=== PATIENT | female | born 1965 | race Caucasian/White ===

== ENCOUNTER 2018-01-09 14:25 | Emergency (ER) | payer BC ==
--- OUTSIDE RECORDS SUMMARY | 2018-01-09 14:27 | XMS REPORT | Clinical Summary ---
:1965 Author Organization [facility] Address [address] [place] [address] Phone Care Team Providers Name Role Phone Unavailable Primary Care Provider Unavailable Allergies No Known Allergies Current Medications Prescription Sig. Disp. Refills Start Date End Date Status venlafaxine (EFFEXOR) 50 Take 50 mg by mouth Active MG tablet 2 (two) times daily. atenolol (TENORMIN) 25 Take 25 mg by mouth Active MG tablet daily. traZODone (DESYREL) 50 Take 50 mg by mouth Active MG tablet nightly. topiramate (TOPAMAX) 50 Take 50 mg by mouth Active MG tablet 2 (two) times daily. omeprazole (PRILOSEC) 10 Take 10 mg by mouth Active MG capsule daily. eletriptan (RELPAX) 20 Take 10 mg by mouth Active MG tablet once as needed for Headaches Do NOT exceed eighty (80) mg in 24 hours. . Active Problems Not on file Encounters Date Type Specialty Care Team [facility] Richard Delgadillo 07/23/2017 Outside Orders [facility], Breast microcalcifications Scheduling Richard Delgadillo (Primary Dx) after 01/08/2017 Social History Tobacco Use Types Packs/Day Years Used Date Never Assessed Smokeless Tobacco: Never Used Alcohol Use Drinks/Week oz/Week Comments Yes occasional Sex Assigned at Date Recorded Not on file Last Filed Vital Signs Vital Sign Reading Time Taken Blood Pressure 128/80 07/26/2017 11:12 AM CDT Pulse 58 07/26/2017 11:12 AM CDT Temperature 36.7 C (98 F) 07/26/2017 9:41 AM CDT Respiratory Rate 19 07/26/2017 11:12 AM CDT Oxygen Saturation 98% 07/26/2017 11:12 AM CDT Inhaled Oxygen Concentration - - Weight 102.1 kg (225 lb) 07/26/2017 9:41 AM CDT Height 170.2 cm (5' 7") 07/26/2017 9:41 AM CDT Body Mass Index 35.24 07/26/2017 9:41 AM CDT Plan of Treatment Not on file Results Tissue Exam (07/26/2017 1:43 PM) Component Value Ref Range Case Report Surgical Pathology Report Case: [id number] Authorizing Provider:Orlando Jansen MDCollected: 07/26/2017 1348 [facility] 07/26/2017 1343 Pathologist: Shirley Ortiz MD Specimen:Breast, Right, RIGHT UPPER OUTER BREAST CALCIFICATIONS DIAGNOSIS A. 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 CPT Code(s) A. 46324 x 1 CLINICAL HISTORY Questionable sclerosing lesion SPECIMEN SOURCE Right upper outer breast calcification. GROSS DESCRIPTION Specimen is received in formalin-filled container labeled with the patient's information and labeled "right upper outer breast calcification" and consists of four yellow-white breast core biopsies ranging in length from 0.9 to 2 cm. Specimen is entirely submitted A1. Ink code: Black. Specimen is entirely submitted A1. CG/bc MICROSCOPIC DESCRIPTION A. Performed. Specimen Performing Laboratory Tissue - Breast, Right [address] [address] MM Breast Specimen Radiograph Right (07/26/2017 11:21 AM) Specimen Performing Laboratory GE [facility] Narrative #[id number] - MM, MAMMO, SPECIMEN, RADIOGRAPH, RIGHT SPECIMEN RIGHT BREAST: 07/26/2017 Four stereotactic guided biopsy specimens were imaged for the area of calcifications located in the right breast at 10 o'clock middle depth. IMPRESSION: SPECIMEN The imaged specimens includes the calcifications. Orlando Jansen M.D. pth/:07/26/2017 13:06:46 Bankruptcy Paralegal: Anastacialydia SHETTY (R)), [facility] [id number] Procedure Note Interface, External Ris In - 07/26/2017 3:54 PM CDT #[id number] - MM, MAMMO, SPECIMEN, RADIOGRAPH, RIGHT SPECIMEN RIGHT BREAST: 07/26/2017 Four stereotactic guided biopsy specimens were imaged for the area of calcifications located in the right breast at 10 o'clock middle depth. IMPRESSION: SPECIMEN The imaged specimens includes the calcifications. Orlando Jansen M.D. pth/:07/26/2017 13:06:46 Bankruptcy Paralegal: Anastacia SHETTY (R)), [facility] [id number] , DIGITAL, UNILATERAL, CONFER JACKSON, MAMMO, RIGHT (07/26/2017 11:20 AM) Specimen Performing Laboratory GE [facility] Narrative #[id number] - MM, DIGITAL, UNILATERAL, CONFER JACKSON, MAMMO, RIGHT INCLUDING CAD UNILATERAL RIGHT DIGITAL PROBLEM SOLVING MAMMOGRAM WITH CAD POST-PROCEDURE IMAGING FOR MARKER PLACEMENT: 07/26/2017 The tissue of the right breast is heterogeneously dense. This may lower the sensitivity of mammography. Current study was also evaluated with a Computer Aided Detection (CAD) system. The post procedure mammogram was performed on a separate mammography unit. A clip is placed at the biopsy site. Post procedure digital mammographic imaging demonstrates the clip 2cm lateral from the geometric center of the targeted area. IMPRESSION: POST PROCEDURE MAMMOGRAM FOR MARKER PLACEMENT Await pathology results. Orlando Jansen M.D. pth/:07/26/2017 13:06:15 Bankruptcy Paralegal: Anastacia SHETTY (R)), [facility] Mammogram BI-RADS: Post-procedure mammogram for marker placement [id number] Procedure Note Interface, External Ris In - 07/26/2017 3:54 PM CDT #[id number] - MM, DIGITAL, UNILATERAL, CONFER JACKSON, MAMMO, RIGHT INCLUDING CAD UNILATERAL RIGHT DIGITAL PROBLEM SOLVING MAMMOGRAM WITH CAD POST-PROCEDURE IMAGING FOR MARKER PLACEMENT: 07/26/2017 The tissue of the right breast is heterogeneously dense. This may lower the sensitivity of mammography. Current study was also evaluated with a Computer Aided Detection (CAD) system. The post procedure mammogram was performed on a separate mammography unit. A clip is placed at the biopsy site. Post procedure digital mammographic imaging demonstrates the clip 2cm lateral from the geometric center of the targeted area. IMPRESSION: POST PROCEDURE MAMMOGRAM FOR MARKER PLACEMENT Await pathology results. Orlando Jansen M.D. pth/:07/26/2017 13:06:15 Bankruptcy Paralegal: Anastacia Shoemaker RT(R)(M), [facility] Mammogram BI-RADS: Post-procedure mammogram for marker placement [id number] Stereotactic breast biopsy right (07/26/2017 11:19 AM) Specimen Performing Laboratory GE RIS Narrative Addendum Begins AMENDMENT: 07/29/2017 Orlando Jansen M.D. Pathology results are now available and demonstrate fibroadenoma with calcifications. This is concordant with the imaging findings. Addendum Ends #[id number] - MM, STEREOTACTIC BIOPSY, BREAST, RIGHT STEREOTACTIC GUIDED BIOPSY RIGHT BREAST WITH MARKING DEVICE INSERTED AND POST DIGITAL MAMMOGRAPHIC IMAGIN07/26/2017 PATIENT CONSENT: The procedure, risks, benefits and alternatives were discussed with the patient. Informed consent was obtained. A stereotactic guided biopsy was performed for the area of calcifications located in the right breast at 10 o'clock middle depth.The skin was prepped in the usual manner.Local anesthetic was administered to the access site.A skin josie was made in the breast.The abnormality was approached from the lateral aspect using a prone table.A 9 gauge biopsy needle was placed adjacent to the abnormality under computer guidance and confirmatory stereotactic mammography images were obtained to document needle placement.Once the needle was documented to be in the correct location, four specimens were obtained using Suros EVIVA device.A clip was inserted into the biopsy cavity.Post procedure digital mammographic imaging demonstrates the clip 2cm lateral from the geometric center of the targeted area.The specimens were sent to the laboratory for pathological analysis. IMPRESSION: STEREOTACTIC GUIDED BIOPSY Stereotactic guided biopsy of the area of calcifications in the right breast at 10 o'clock middle depth was successful with no apparent post procedure complications. Orlando Jansen M.D. pth/:07/26/2017 13:05:30 Bankruptcy Paralegal: Anastacia Shoemaker RT(R)(M), [facility] [id number] Procedure Note Interface, External Ris In - 07/29/2017 3:02 PM CDT Addendum Begins AMENDMENT: 07/29/2017 Orlando Jansen M.D. Pathology results are now available and demonstrate fibroadenoma with calcifications. This is concordant with the imaging findings. Addendum Ends #[id number] - MM, STEREOTACTIC BIOPSY, BREAST, RIGHT STEREOTACTIC GUIDED BIOPSY RIGHT BREAST WITH MARKING DEVICE INSERTED AND POST DIGITAL MAMMOGRAPHIC IMAGIN07/26/2017 PATIENT CONSENT: The procedure, risks, benefits and alternatives were discussed with the patient. Informed consent was obtained. A stereotactic guided biopsy was performed for the area of calcifications located in the right breast at 10 o'clock middle depth. The skin was prepped in the usual manner. Local anesthetic was administered to the access site. A skin josie was made in the breast. The abnormality was approached from the lateral aspect using a prone table. A 9 gauge biopsy needle was placed adjacent to the abnormality under computer guidance and confirmatory stereotactic mammography images were obtained to document needle placement. Once the needle was documented to be in the correct location, four specimens were obtained using Suros EVIVA device. A clip was inserted into the biopsy cavity. Post procedure digital mammographic imaging demonstrates the clip 2cm lateral from the geometric center of the targeted area. The specimens were sent to the laboratory for pathological analysis. IMPRESSION: STEREOTACTIC GUIDED BIOPSY Stereotactic guided biopsy of the area of calcifications in the right breast at 10 o'clock middle depth was successful with no apparent post procedure complications. Orlando Jansen M.D. pth/:07/26/2017 13:05:30 Bankruptcy Paralegal: Anastacia FRAUSTO)(Julio), [facility] [id number] after 01/08/2017
--- OUTSIDE RECORDS SUMMARY | 2018-01-09 14:27 | XMS REPORT ---
:1965 Author Organization [facility] Address [address] [place] [address] Dr. Ramirez [address] [place] [address] Care Team Providers Name Role Phone JANETTE PENA NEFTALI Unavailable Unavailable Problems This patient has no known problems. Allergies, Adverse Reactions, Alerts This patient has no known allergies or adverse reactions. Medications This patient has no known medications. Results Test Description Test Time Test Comments Text Results Atomic Results Result Comments MM, STEREOTACTIC 2017-07-29 Reason for Addendum BeginsMRN#: BIOPSY, BREAST, 10:16:00 Exam:->Microcalifications [id number]: RIGHT 07/29/2017 Orlando Jansen M.D. Pathology results are now available and demonstrate fibroadenoma with calcifications.This is concordant with the imaging findings. Addendum EndsMRN#: [id number] - MM, STEREOTACTIC BIOPSY, BREAST, RIGHTSTEREOTACTIC GUIDED BIOPSY RIGHT BREAST WITH MARKING DEVICE INSERTED AND POST DIGITAL MAMMOGRAPHIC IMAGIN07/26/2017PATIENT CONSENT: The procedure, risks, benefits and alternatives [...] correct location, four specimens were obtained using mSpot device. A clip was inserted into the biopsy cavity. Post procedure digital mammographic imaging demonstrates the clip 2cm lateral from the geometric center of the targeted area. The specimens were sent to the laboratory for pathological analysis. IMPRESSION: STEREOTACTIC GUIDED BIOPSYStereotactic guided biopsy of the area of calcifications in the right breast at 10 o'clock middle depth was successful with no apparent post procedure complications. Orlando Jansen M.D. pth/:07/26/2017 13:05:30 Cleaner And Dyer: Anastacia Shoemaker RT(R)(M), Critical [facility] hospital?[facility] [id number] UE EXAM 2017-07-27 Surgical Pathology 16:52:00 Report Case: [id number] Authorizing Provider: Orlando Jansen MD Collected: 07/26/2017 1343 Ordering Location: [facility] Received: 07/26/2017 1343 Pathologist: Shirley Ortiz MD Specimen: Breast, Right, RIGHT UPPER OUTER BREAST CALCIFICATIONS A. 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 09407 x 1 Questionable sclerosing lesionRight upper outer breast calcification.Specimen is received in formalin-filled container labeled with the patient's information and labeled "right upper outer breast calcification" and consists of four yellow-white breast core biopsies ranging in length from 0.9 to 2 cm. Specimen is entirely submitted A1. Ink code: Black. Specimen is entirely submitted A1. CG/bc A. Performed. MM, DIGITAL, 2017-07-26 Right breast calcifications #[id number] UNILATERAL, 13:06:00 - MM, DIGITAL, CONFER JACKSON, UNILATERAL, CONFER MAMMO, RIGHT JACKSON, MAMMO, RIGHT INCLUDING CAD INCLUDING CADUNILATERAL RIGHT DIGITAL PROBLEM SOLVING MAMMOGRAM WITH CAD POST-PROCEDURE IMAGING FOR MARKER PLACEMENT: 07/26/2017 The tissue of the right breast is heterogeneously dense. This may lower the sensitivity of mammography. Current study was also evaluated with a Computer Aided Detection (CAD) system. The post procedure mammogram was performed on a separate mammography unit.A clip is placed at the biopsy site. Post procedure digital mammographic imaging demonstrates the clip 2cm lateral from the geometric center of the targeted area. IMPRESSION: POST PROCEDURE MAMMOGRAM FOR MARKER PLACEMENTAwait pathology results. Orlando Jansen M.D. pth/:07/26/2017 13:06:15 [employer] Dyer: Anastacia SHETTY (R)), Critical [facility] hospital?[facility] Mammogram BI-RADS: Post-procedure mammogram for marker placement [id number] MAMMO, 2017-07-26 Reason for exam:->Right #[id number] SPECIMEN, 13:06:00 breast calcifications - MM, MAMMO, SPECIMEN, RADIOGRAPH, RIGHT RADIOGRAPH, RIGHTSPECIMEN RIGHT BREAST: 07/26/2017Four stereotactic guided biopsy specimens were imaged for the area of calcifications located in the right breast at 10 o'clock middle depth. IMPRESSION: SPECIMENThe imaged specimens includes the calcifications. Orlando Jansen M.D. pth/:07/26/2017 13:06:46 Cleaner And Dyer: Anastacia SHETTY (R)), Critical access hospital?[facility] [id number]
[2018-01-09 16:46] LABS: Absolute Lymphocytes (CBC) 1.5 K/uL (0.7-4.9); Absolute Monocytes 0.5 K/uL (0.1-1.3); Absolute Neutrophil 5.7 K/uL (1.8-8.0); Basophils % 0.8 % (0-1.3); Eosinophils % 1.5 % (0-4.4); Hematocrit 39.8 % (36.0-45.0); Lymphocytes % 19.3 % (15.3-44.8); MCH 28.3 pg (27.0-35.0); MCV 85.9 fL (80-100); Monocytes % 6.7 % (3.3-12.3); RBC Red Blood Cell Count 4.63 M/uL (3.86-4.86)
[2018-01-09] MEDS ORDERED: MORPHINE 4 MG/ML SYR ONE (17:07)
[2018-01-09] MEDS ORDERED: ONDANSETRON 4 MG/2 ML VIAL ONE (17:07)
--- NOTE | 2018-01-09 17:12 | RAD REPORT ---
EXAM DESCRIPTION: CT - FC CLINICAL HISTORY: Pain;Swelling COMPARISON: No comparisons TECHNIQUE: Axial 2 mm thick images of the face were obtained with sagittal and coronal reconstructio n images. All CT scans are performed using dose optimization technique as appropriate and may include automated exposure control or mA/KV adjustment according to patient size. FINDINGS: No acute facial bone fracture is seen.The mandible is intact. A defect is noted at the level of the left maxillary first molar. This is presumed to be the site of recent dental extraction. There appears to be a 3 mm defect in the floor of the inferior maxillary an trum at this site. Mild fluid and mucoperiosteal thickening in the left maxillary sinuses noted, a co mponent of which could be related to this small bony defect. The globes and orbital contents are grossly unremarkable.The other paranasal sinuses and mastoids xavier ear clear. IMPRESSION: Evidence of recent extraction left maxillary first molar.Note is made of a 3 mm potentia l bony defect seen in the inferior maxillary antrum at this site with mild fluid and mucoperiosteal t hickening involving the left maxillary antrum. No odontogenic abscess seen.
[2018-01-09] MEDS ORDERED: NA CHLORIDE 0.9% 1,000 ML ONE (17:14)
--- NOTE | 2018-01-09 18:47 | EDPHYS ---
Physician Documentation [facility] Name: Prisca Hernandez Age: 52 yrs Sex: Female : 1965 Arrival Date: 01/09/2018 Time: 14:29 Bed 23 Private MD: ED Physician Pito Mccullough HPI: 01/09 16:30 This 52 yrs old Female presents to ER via Ambulatory with complaints of pm1 Toothache. 16:30 The patient presents with pain, swelling. The problem is located in the upper left pm1 first molar. Onset: The symptoms/episode began/occurred 6 day(s) ago. Duration: The symptoms are continuous. Modifying factors: The symptoms are alleviated by nothing, the symptoms are aggravated by nothing. Associated signs and symptoms: Pertinent positives: swelling, facial, Pertinent negatives: chills, dysphagia, fever, inability to eat, vomiting. Severity of symptoms: in the emergency department the symptoms are unchanged. The patient has not experienced similar symptoms in the past. Patient with extraction of left 1 st upper molar on Wednesday by dentist due to dental decay under her crown. Tooth extracted to prepare for dental implant. Discharged with clindamycin and [place]. Followed up on Wednesday with dentist and instructed to follow up with [facility] if no improvement and worsens. Unable to see [facility] until next month so came to ER for evaluation. 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 - Social history:: Smoking status: Patient/guardian denies using tobacco, Patient uses alcohol. - Ebola Screening: : Patient negative for fever greater than or equal to 101.5 degrees Fahrenheit, and additional compatible Ebola Virus Disease symptoms Patient denies exposure to infectious person Patient denies travel to an Ebola-affected area in the 21 days before illness onset. ROS: 16:30 Constitutional: Negative for fever, chills, and weight loss, Eyes: Negative for injury, pm1 pain, redness, and discharge. 16:30 Neck: Negative for injury, pain, and swelling, Cardiovascular: Negative for chest pain, palpitations, and edema, Respiratory: Negative for shortness of breath, cough, wheezing, and pleuritic chest pain, Abdomen/GI: Negative for abdominal pain, nausea, vomiting, diarrhea, and constipation, Back: Negative for injury and pain, : Negative for injury, bleeding, discharge, and swelling, MS/Extremity: Negative for injury and deformity, Skin: Negative for injury, rash, and discoloration, Neuro: Negative for headache, weakness, numbness, tingling, and seizure. 16:30 ENT: Positive for dental pain, Negative for ear pain, sore throat, difficulty swallowing, difficulty handling secretions, hoarseness. Exam: 16:30 Constitutional: This is a well developed, well nourished patient who is awake, alert, pm1 and in no acute distress. Head/Face: Normocephalic, atraumatic. Eyes: Pupils equal round and reactive to light, extra-ocular motions intact. Lids and lashes normal. Conjunctiva and sclera are non-icteric and not injected. Cornea within normal limits. Periorbital areas with no swelling, redness, or edema. 16:30 Neck: Trachea midline, no thyromegaly or masses palpated, and no cervical lymphadenopathy. Supple, full range of motion without nuchal rigidity, or vertebral point tenderness. No Meningismus. Chest/axilla: Normal chest wall appearance and motion. Nontender with no deformity. No lesions are appreciated. Cardiovascular: Regular rate and rhythm with a normal S1 and S2. No gallops, murmurs, or rubs. Normal PMI, no JVD. No pulse deficits. Respiratory: Lungs have equal breath sounds bilaterally, clear to auscultation and percussion. No rales, rhonchi or wheezes noted. No increased work of breathing, no retractions or nasal flaring. Abdomen/GI: Soft, non-tender, with normal bowel sounds. No distension or tympany. No guarding or rebound. No evidence of tenderness throughout. Back: No spinal tenderness. No costovertebral tenderness. Full range of motion. Skin: Warm, dry with normal turgor. Normal color with no rashes, no lesions, and no evidence of cellulitis. MS/ Extremity: Pulses equal, no cyanosis. Neurovascular intact. Full, normal range of motion. 16:30 ENT: External ear(s): are unremarkable, Ear canal(s): are normal, TM's: are normal, Nose: is normal, Mouth: Lips: normal, Oral mucosa: normal, Gums: normal with healthy appearance, abscess, is not appreciated, drooling, is not appreciated, no trismus. 16:30 Neuro: Orientation: is normal, Mentation: is normal, Motor: is normal, moves all fours, Sensation: is normal, no obvious gross deficits. Vital Signs: 14:45 BP 123 / 82; Pulse 65; Resp 18; Temp 99.2(O); Pulse Ox 98% ; Weight 106.59 kg; Height 5 hj ft. 7 in. (170.18 cm); Pain 8/10; 15:30 BP 137 / 86; Pulse 64; Resp 18; Pulse Ox 97% ; tl3 16:09 BP 125 / 82; Pulse 59; Pulse Ox 98% on R/A; mb4 19:00 BP 124 / 78; Pulse 58; Resp 18; Pulse Ox 100% on R/A; mg2 14:45 Body Mass Index 36.80 (106.59 kg, 170.18 cm) hj MDM: 15:30 Patient medically screened. pm1 18:45 Data reviewed: vital signs. Data interpreted: Pulse oximetry: on room air is 98 %. pm1 Interpretation: normal. Counseling: I had a detailed discussion with the patient and/or guardian regarding: the historical points, exam findings, and any diagnostic results supporting the discharge/admit diagnosis, lab results, radiology results, the need for outpatient follow up, for definitive care, a dentist, an oral maxilofacial specialist, to return to the emergency department if symptoms worsen or persist or if there are any questions or concerns that arise at home. 01/09 15:59 Order name: CBC with Diff; Complete Time: 17:05 pm1 01/09 15:59 Order name: BMP; Complete Time: 17:05 pm1 01/09 15:59 Order name: CT Maxillofacial W/cont; Complete Time: 17:17 pm1 10/14 15:59 Order name: IV Saline Lock; Complete Time: 17:13 pm1 01/09 15:59 Order name: Urine Dipstick-Ancillary (obtain specimen); Complete Time: 17:13 pm1 01/09 15:59 Order name: Urine Test (obtain specimen); Complete Time: 17:12 pm1 Administered Medications: 17:11 Drug: Zofran 4 mg Route: IVP; Infused Over: 2 mins; Site: left antecubital; tl3 18:15 Follow up: Response: No adverse reaction mg2 17:12 Drug: morphine 4 mg Route: IVP; Infused Over: 3 mins; Site: left antecubital; tl3 18:15 Follow up: Response: No adverse reaction mg2 17:12 Drug: NS 0.9% 1000 ml Route: IV; Rate: 1000 ml; Site: left antecubital; Delivery: tl3 Primary tubing; 18:15 Follow up: IV Status: Completed infusion; IV Intake: 1000ml mg2 Disposition: 01/10 09:56 Co-signature as Attending Physician, Pito Mccullough MD. ma2 Disposition: 01/09/18 18:46 Discharged to Home. Impression: Dental pain post tooth extraction. - Condition is Stable. - Discharge Instructions: Dental Pain, Dental Extraction, Care After. - Work release form, Medication Reconciliation Form, Thank You Letter, Antibiotic Education, Prescription Opioid Use form. - Follow up: Emergency Department; When: As needed; Reason: Worsening of condition. Follow up: Madhu Samuels DDS; When: 2 - 3 days; Reason: Recheck today's complaints, Continuance of care, Re-evaluation by your physician. - Problem is new. - Symptoms have improved. Signatures: Dispatcher [employer] EDRI Clint Peng RN RN hj Jarrell Maxwell, GERRY COLOR CONTROL OPERATOR pm1 Pito Mccullough MD MD ma2 Chayito Miller RN RN tl3 Lawson Jimenes RN RN mg2 Corrections: (The following items were deleted from the chart) 01/09 19:01 18:46 01/09/2018 18:46 Discharged to Home. Impression: Dental pain post tooth mg2 extraction. Condition is Stable. Forms are Medication Reconciliation Form, Thank You Letter, Antibiotic Education, Prescription Opioid Use. Follow up: Emergency Department; When: As needed; Reason: Worsening of condition. Follow up: Madhu Samuels; When: 2 - 3 days; Reason: Recheck today's complaints, Continuance of care, Re-evaluation by your physician. Problem is new. Symptoms have improved. pm1
--- NOTE | 2018-01-09 18:47 | ER ---
Nurse's Notes [facility] Name: Prisca Hernandez Age: 52 yrs Sex: Female : 1965 Arrival Date: 01/09/2018 Time: 14:29 Bed 23 Private MD: Diagnosis: Dental pain post tooth extraction Presentation: 01/09 14:40 Presenting complaint: Patient states: i had a tooth extraction done on Wednesday, went back Wednesday for follow up with the dentist, was told to take pain meds and antibiotics; was told if pain is worse, need to see an oral surgeon, which is not available since Wednesday, now my pain is radiating towards the L side of my face and L ear, L eye area down into the jaw;. Transition of care: patient was not received from another setting of care. Onset of symptoms was January 09, 2018. Risk Assessment: Do you want to hurt yourself or someone else? Patient reports no desire to harm self or others. Initial Sepsis Screen: Does the patient meet any 2 criteria? No. Patient's initial sepsis screen is negative. Does the patient have a suspected source of infection? No. Patient's initial sepsis screen is negative. Care prior to arrival: None. 14:40 Method Of Arrival: Ambulatory 14:40 Acuity: ROGER 3 Triage Assessment: 14:44 General: Appears in no apparent distress. uncomfortable, Behavior is calm, cooperative, hj appropriate for age. Pain: Complains of pain in tooth. EENT: Reports pain. 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 - Social history:: Smoking status: Patient/guardian denies using tobacco, Patient uses alcohol. - Ebola Screening: : Patient negative for fever greater than or equal to 101.5 degrees Fahrenheit, and additional compatible Ebola Virus Disease symptoms Patient denies exposure to infectious person Patient denies travel to an Ebola-affected area in the 21 days before illness onset. Screenin:44 Abuse screen: Denies threats or abuse. Denies injuries from another. Nutritional hj screening: No deficits noted. Tuberculosis screening: No symptoms or risk factors identified. Fall Risk None identified. Assessment: 15:30 General: Appears uncomfortable, well groomed, well developed, well nourished, Behavior tl3 is calm, cooperative, appropriate for age. Pain: Complains of pain in left lower jaw Quality of pain is described as sharp, throbbing. Neuro: Level of Consciousness is awake, alert, obeys commands, Oriented to person, place, time, situation, Appropriate for age. Cardiovascular: Patient's skin is warm and dry. Respiratory: Airway is patent Respiratory effort is even, unlabored, Respiratory pattern is regular, symmetrical, GI: No signs and/or symptoms were reported involving the gastrointestinal system. : No signs and/or symptoms were reported regarding the genitourinary system. EENT: No signs and/or symptoms were reported regarding the EENT system. Derm: No signs and/or symptoms reported regarding the dermatologic system. Musculoskeletal: No signs and/or symptoms reported regarding the musculoskeletal system. 17:00 Reassessment: Patient appears in no apparent distress at this time. No changes from mg2 previously documented assessment. Patient and/or family updated on plan of care and expected duration. Pain level reassessed. Patient is alert, oriented x 3, equal unlabored respirations, skin warm/dry/pink. Vital Signs: 14:45 BP 123 / 82; Pulse 65; Resp 18; Temp 99.2(O); Pulse Ox 98% ; Weight 106.59 kg; Height 5 ft. 7 in. (170.18 cm); Pain 8/10; 15:30 BP 137 / 86; Pulse 64; Resp 18; Pulse Ox 97% ; tl3 16:09 BP 125 / 82; Pulse 59; Pulse Ox 98% on R/A; mb4 19:00 BP 124 / 78; Pulse 58; Resp 18; Pulse Ox 100% on R/A; mg2 14:45 Body Mass Index 36.80 (106.59 kg, 170.18 cm) ED Course: 14:29 Patient arrived in ED. mr 14:42 Triage completed. hj 14:45 Arm band placed on right wrist. hj 14:46 Patient has correct armband on for positive identification. Bed in low position. Call hj light in reach. Side rails up X 1. 15:25 Chayito Miller, MARKEL is Primary Nurse. tl3 15:29 Jarrell Maxwell NP is PHCP. pm1 15:29 Pito Mccullough MD is Attending Physician. pm1 15:55 Ice pack to injury. mb4 16:31 Missed attempt(s): 20 gauge in right antecubital area. Bleeding controlled, band aid mb4 applied, catheter tip intact. 16:43 CT completed. Patient moved to CT via wheelchair. Patient moved back from CT. cw1 16:54 CT Maxillofacial W/cont In Process Unspecified. EDMS 18:46 Madhu Samuels DDS is Referral Physician. pm1 19:00 No provider procedures requiring assistance completed. IV discontinued, intact, mg2 bleeding controlled, No redness/swelling at site. Pressure dressing applied. Administered Medications: 17:11 Drug: Zofran 4 mg Route: IVP; Infused Over: 2 mins; Site: left antecubital; tl3 18:15 Follow up: Response: No adverse reaction mg2 17:12 Drug: morphine 4 mg Route: IVP; Infused Over: 3 mins; Site: left antecubital; tl3 18:15 Follow up: Response: No adverse reaction mg2 17:12 Drug: NS 0.9% 1000 ml Route: IV; Rate: 1000 ml; Site: left antecubital; Delivery: tl3 Primary tubing; 18:15 Follow up: IV Status: Completed infusion; IV Intake: 1000ml mg2 Intake: 18:15 IV: 1000ml; Total: 1000ml. mg2 Outcome: 18:46 Discharge ordered by MD. pm1 19:00 Discharged to home ambulatory. mg2 19:00 Condition: good 19:00 Discharge instructions given to patient, Instructed on discharge instructions, follow up and referral plans. Demonstrated understanding of instructions, follow-up care. 19:01 Patient left the ED. mg2 Signatures: Dispatcher [employer] EDWV Kristel Berrios Crystal cw1 Clint Peng RN RN Jarrell Maxwell NP NUCLEAR SPECTROSCOPIST pm1 Chayito Miller, MARKEL JEAN BAPTISTE tl3 Lawson Jimenes RN RN mg2 Sherlyn Mccann4 Corrections: (The following items were deleted from the chart) 14:47 14:45 Pulse 65bpm; Resp 18bpm; Pulse Ox 98%; Temp 99.2F Oral; 106.59 kg; Height 5 ft. 7 hj in.; BMI: 36.8; Pain 8/10; hj 17:18 14:40 Acuity: ROGER 4 hj hj
[2018-01-11 14:03] VITALS: BP 124/78; TEMP 99.2; O2SAT 100
== END 2018-01-09 19:01 | disposition home or self-care (01) ==
LOC: ER 14:25
DX: G89.18 Other acute postprocedural pain (principal); I10 Essential (primary) hypertension; Z98.818 Other dental procedure status
CPT/HCPCS: 36415; 70487; 80048; 85025; 96361; 96374; 96375; 99284; J2405; J7030; Q9967

== ENCOUNTER 2018-01-17 13:17 | Observation (INO) | payer BC ==
--- OUTSIDE RECORDS SUMMARY | 2018-01-17 13:20 | XMS REPORT | Clinical Summary ---
:1965 Author Organization [facility] Address [address] [place] [address] Phone Care Team Providers Name Role Phone [...] Date Type Specialty [facility] En[facility] Richard Delgadillo 07/23/2017 Outside Orders [facility], Breast microcalcifications Scheduling Richard Delgadillo (Primary Dx) after 01/16/2017 Social History Tobacco Use Types Packs/Day Years [...] Range Case Report Surgical Pathology Report Case: [id number] Authorizing Provider:Orlando Jansen MDCollected: 07/26/2017 1345 [facility] 07/[facility]/2017 1343 Pathologist: Shirley Ortiz MD Specimen:Breast, Right, RIGHT UPPER OUTER BREAST CALCIFICATIONS DIAGNOSIS A. 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 CPT Code(s) A. 35234 x 1 CLINICAL HISTORY Questionable sclerosing lesion [...] Specimen Performing Laboratory Tissue - Breast, Right [address] [address] MM Breast Specimen Radiograph Right (07/26/2017 11:21 AM) Specimen Performing Laboratory GE RIS Narrative #[id number] - MM, MAMMO, SPECIMEN, RADIOGRAPH, RIGHT SPECIMEN RIGHT BREAST: 07/26/2017 Four stereotactic guided biopsy specimens were imaged for the area of calcifications located in the right breast at 10 o'clock middle depth. IMPRESSION: SPECIMEN The imaged specimens includes the calcifications. Orlando Jansen M.D. pth/:07/26/2017 13:06:46 Psychiatric Attendant: Anastacialydia SHETTY (R)), [facility] [id number] Procedure Note Interface, External Ris In - 07/26/2017 3:54 PM CDT #[id number] - MM, MAMMO, SPECIMEN, RADIOGRAPH, RIGHT SPECIMEN RIGHT BREAST: 07/26/2017 Four stereotactic guided biopsy specimens were imaged for the area of calcifications located in the right breast at 10 o'clock middle depth. IMPRESSION: SPECIMEN The imaged specimens includes the calcifications. Orlando Jansen M.D. pth/:07/26/2017 13:06:46 Psychiatric Attendant: Anastacia SHETTY (R)), [facility] [id number] , DIGITAL, UNILATERAL, CONFER JACKSON, MAMMO, RIGHT (07/26/2017 11:20 AM) Specimen Performing Laboratory GE RIS Narrative #[id number] - MM, DIGITAL, UNILATERAL, CONFER JACKSON, MAMMO, [...] pathology results. Orlando Jansen M.D. pth/:07/26/2017 13:06:15 Psychiatric Attendant: Anastacia SHETTY (R)), [facility] Mammogram BI-RADS: Post-procedure mammogram for marker placement [id number] Procedure Note Interface, External Ris In - 07/26/2017 3:54 PM CDT #[id number] - MM, DIGITAL, UNILATERAL, CONFER JACKSON, MAMMO, [...] pathology results. Orlando Jansen M.D. pth/:07/26/2017 13:06:15 Psychiatric Attendant: Anastacia Shoemaker RT(R)(M), [facility] Mammogram BI-RADS: Post-procedure mammogram for marker placement [id number] Stereotactic breast biopsy right (07/26/2017 11:19 AM) Specimen Performing Laboratory GE RIS Narrative Addendum Begins AMENDMENT: 07/29/2017 Orlando Jansen M.D. Pathology results are now available and demonstrate fibroadenoma with calcifications. This is concordant with the imaging findings. Addendum Ends #[id number] - MM, STEREOTACTIC BIOPSY, BREAST, RIGHT STEREOTACTIC [...] procedure complications. Orlando Jansen M.D. pth/:07/26/2017 13:05:30 Psychiatric Attendant: Anastacia Shoemaker RT(R)(M), [facility] [id number] Procedure Note Interface, External Ris In - 07/29/2017 3:02 PM CDT Addendum Begins AMENDMENT: 07/29/2017 Orlando Jansen M.D. Pathology results are now available and demonstrate fibroadenoma with calcifications. This is concordant with the imaging findings. Addendum Ends #[id number] - MM, STEREOTACTIC BIOPSY, BREAST, RIGHT STEREOTACTIC [...] procedure complications. Orlando Jansen M.D. pth/:07/26/2017 13:05:30 Psychiatric Attendant: Anastacia FRAUSTO)(Julio), [facility] [id number] after 01/16/2017
--- OUTSIDE RECORDS SUMMARY | 2018-01-17 13:20 | XMS REPORT ---
:1965 Author Organization [facility] Address [address] [place] [address] Dr. Ramirez [address] [place] [id number] Care Team Providers Name Role Phone JANETTE PENA NEFTALI Unavailable Unavailable Problems This patient has no known problems. Allergies, Adverse Reactions, Alerts This patient has no known allergies or adverse reactions. Medications This patient has no known medications. Results Test Description Test Time Test Comments Text Results Atomic Results Result Comments MM, STEREOTACTIC 2017-07-29 Reason for Addendum BeginsMRN#: BIOPSY, BREAST, 10:16:00 Exam:->Microcalifications [id number]: RIGHT 07/29/2017 Orlando Jansen M.D. Pathology results are now available and demonstrate fibroadenoma with calcifications.This is concordant with the imaging findings. Addendum EndsMRN#: [id number] - MM, STEREOTACTIC BIOPSY, BREAST, RIGHTSTEREOTACTIC GUIDED [...] correct location, four specimens were obtained using Kromek device. A clip was inserted into the [...] procedure complications. Orlando Jansen M.D. pth/:07/26/2017 13:05:30 Private Eye: Anastacia Shoemaker RT(R)(M), [facility] [id number] UE EXAM 2017-07-27 Surgical Pathology 16:52:00 Report Case: [id number] Authorizing Provider: Orlando Jansen MD Collected: 07/26/2017 1343 Ordering Location: [facility] Received: 07/26/2017 1343 Pathologist: Shirley Ortiz MD Specimen: Breast, Right, RIGHT UPPER OUTER BREAST CALCIFICATIONS A. 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 37446 x 1 Questionable sclerosing lesionRight upper outer [...] Performed. MM, DIGITAL, 2017-07-26 Right breast calcifications #[id number] UNILATERAL, 13:06:00 - MM, DIGITAL, CONFER JACKSON, [...] pathology results. Orlando Jansen M.D. pth/:07/26/2017 13:06:15 Private Eye: Anastacia SHETTY (R)), [facility] Mammogram BI-RADS: Post-procedure mammogram for marker placement [id number] MAMMO, 2017-07-26 Reason for exam:->Right #[id number] SPECIMEN, 13:06:00 breast calcifications - MM, MAMMO, SPECIMEN, RADIOGRAPH, RIGHT RADIOGRAPH, RIGHTSPECIMEN RIGHT BREAST: 07/26/2017Four stereotactic guided biopsy specimens were imaged for the area of calcifications located in the right breast at 10 o'clock middle depth. IMPRESSION: SPECIMENThe imaged specimens includes the calcifications. Orlando Jansen M.D. pth/:07/26/2017 13:06:46 Private Eye: Anastacia SHETTY (R)), [facility] [id number]
[2018-01-17] MEDS ORDERED: NA CHLORIDE 0.9% 1,000 ML ONE (14:38)
--- NOTE | 2018-01-17 14:46 | RAD REPORT ---
EXAM DESCRIPTION: Kateryna Single View01/17/2018 2:25 pm CLINICAL HISTORY: Cough COMPARISON: 2012 FINDINGS: The lungs appear clear of acute infiltrate. The heart is normal size IMPRESSION: No acute abnormalities displayed
--- NOTE | 2018-01-17 14:50 | RAD REPORT ---
EXAM DESCRIPTION: CT - Head Brain Wo Cont - 01/17/2018 2:27 pm CLINICAL HISTORY: Headache COMPARISON: None. TECHNIQUE: Computed axial tomography of the head was obtained. IV contrast was not requested. All CT scans are performed using dose optimization technique as appropriate and may include automated exposure control or mA/KV adjustment according to patient size. FINDINGS: An intracranial bleed is not seen . The ventricles are normal in caliber. No extra-axial fluid collection is noted. 1 centimeter posterior fossa lipoma is suspected Fluid within the sinuses/ mastoids is not seen. IMPRESSION: No acute intracranial abnormality is seen. If patient's symptoms persist MRI of the bra in would be recommended.
[2018-01-17 15:01] LABS: Absolute Lymphocytes (CBC) 1.4 K/uL (0.7-4.9); Absolute Monocytes 0.5 K/uL (0.1-1.3); Basophils % 0.5 % (0-1.3); Eosinophils % 1.8 % (0-4.4); Hematocrit 38.3 % (36.0-45.0); Lymphocytes % 17.5 % (15.3-44.8); MCH 28.2 pg (27.0-35.0); MCV 86.2 fL (80-100); MPV 8.9 fL (7.6-11.3); Monocytes % 6.5 % (3.3-12.3); RBC Red Blood Cell Count 4.44 M/uL (3.86-4.86)
[2018-01-17 15:05] LABS: Protime INR 0.98
[2018-01-17 15:22] LABS: ALT/SGPT 36 U/L (12-78); AST/SGOT 17 U/L (15-37); Albumin 3.7 g/dL (3.4-5.0); Alkaline Phosphatase 84 U/L (45-117); BUN Blood Urea Nitrogen 15 mg/dL (7-18); Bicarbonate 27 mmol/L (21-32); Bilirubin Direct 0.1 mg/dL (0-0.2); Bilirubin Total 0.4 mg/dL (0.2-1.0); Glucose Level 129 mg/dL (74-106); Lipase 103 U/L (73-393); Magnesium 2.2 mg/dL (1.8-2.4); NT PRO-BNP 60 pg/mL (<125); Potassium 3.7 mmol/L (3.5-5.1); Protein, Total 7.3 g/dL (6.4-8.2); Sodium Level 139 mmol/L (136-145); Troponin (Emerg Dept Use Only) < 0.02 ng/mL (0.0-0.045)
--- NOTE | 2018-01-17 15:58 | ER ---
Nurse's Notes [facility] Name: Prisca Hernandez Age: 52 yrs Sex: Female : 1965 Arrival Date: 01/17/2018 Time: 13:18 Bed 7 Private MD: lOiva Long K Diagnosis: Dizziness and giddiness;Syncope and collapse;Fibromyalgia Presentation: 01/17 13:51 Presenting complaint: Patient states: Headache x 2 weeks ago. Pt reports dizziness and aa5 generalized weakness today. Pt's significant other states "she had a molar extraction 2 weeks ago and has been having pain since then but her dentist are still trying to figure that out, she actually has a ENT appointment for tomorrow". Transition of care: patient was not received from another setting of care. Onset of symptoms was December 2017. Risk Assessment: Do you want to hurt yourself or someone else? Patient reports no desire to harm self or others. Initial Sepsis Screen: Does the patient meet any 2 criteria? No. Patient's initial sepsis screen is negative. Does the patient have a suspected source of infection? No. Patient's initial sepsis screen is negative. Care prior to arrival: None. 13:51 Method Of Arrival: Ambulatory aa5 13:51 Acuity: ROGER 3 aa5 Triage Assessment: 17:29 Headache History: The patient has had previous headaches and this one is similar to tl3 previous episodes. General: Appears uncomfortable. Pain: Complains of pain in right sided face pain and headache Pain began on and off for the last couple of weeks Also complains of no other associated symptoms. 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 - Social history:: Smoking status: Patient/guardian denies using tobacco. - Ebola Screening: : No symptoms or risks identified at this time. - Family history:: not pertinent. Screenin:02 Abuse screen: Denies threats or abuse. Nutritional screening: No deficits noted. tl3 Tuberculosis screening: No symptoms or risk factors identified. Fall Risk None identified. Assessment: 14:02 General: Appears uncomfortable, well groomed, well developed, well nourished, Behavior tl3 is calm, cooperative, appropriate for age, quiet. General: pt had molar pulled about two weeks ago, has had pain and swelling on/off since, has appt with ENT tomorrow, was at lunch and started feeling weak and got a headache with face pain. Has had poor PO intake since extraction. Pain: Complains of pain in headache and face apin Pain currently is 8 out of 10 on a pain scale. Neuro: Level of Consciousness is awake, alert, obeys commands, Oriented to person, place, time, situation, Appropriate for age. Cardiovascular: Patient's skin is warm and dry. Respiratory: Airway is patent Respiratory effort is even, unlabored, Respiratory pattern is regular, symmetrical. GI: No signs and/or symptoms were reported involving the gastrointestinal system. : No signs and/or symptoms were reported regarding the genitourinary system. EENT: No signs and/or symptoms were reported regarding the EENT system. Derm: No signs and/or symptoms reported regarding the dermatologic system. Musculoskeletal: No signs and/or symptoms reported regarding the musculoskeletal system. 14:45 Reassessment: No changes from previously documented assessment. Patient and/or family tl3 updated on plan of care and expected duration. Pain level reassessed. Patient is alert, oriented x 3, equal unlabored respirations, skin warm/dry/pink. Dr Cleaning at bedside. 15:38 Reassessment: No changes from previously documented assessment. Patient and/or family tl3 updated on plan of care and expected duration. Pain level reassessed. Patient is alert, oriented x 3, equal unlabored respirations, skin warm/dry/pink. pt provided urine for sample. 16:27 Reassessment: No changes from previously documented assessment. Patient and/or family tl3 updated on plan of care and expected duration. Pain level reassessed. Patient is alert, oriented x 3, equal unlabored respirations, skin warm/dry/pink. no needs at this time, pt resting. 17:33 Reassessment: Patient appears in no apparent distress at this time. No changes from tl3 previously documented assessment. Patient and/or family updated on plan of care and expected duration. Pain level reassessed. Patient is alert, oriented x 3, equal unlabored respirations, skin warm/dry/pink. blood obtained by resp, sent to lab. Vital Signs: 13:53 BP 155 / 95; Pulse 58; Resp 14 S; Temp 97.7(O); Pulse Ox 100% on R/A; Weight 104.33 kg aa5 (R); Height 5 ft. 7 in. (170.18 cm) (R); Pain 8/10; 14:02 BP 144 / 86; Pulse 60; Resp 18; Pulse Ox 96% on R/A; tl3 15:38 BP 148 / 93; Pulse 62; Resp 18; Pulse Ox 96% ; tl3 16:27 BP 139 / 85; Pulse 57; Resp 18; Pulse Ox 99% ; tl3 17:33 BP 110 / 87; Pulse 64; Resp 18; Pulse Ox 98% on R/A; tl3 13:53 Body Mass Index 36.02 (104.33 kg, 170.18 cm) aa5 ED Course: 13:18 Patient arrived in ED. rg4 13:18 Oliva Long MD is Private Physician. rg4 13:53 Triage completed. aa5 13:53 Arm band placed on. aa5 13:54 Chayito Miller, MARKEL is Primary Nurse. tl3 14:02 Patient has correct armband on for positive identification. tl3 14:02 No provider procedures requiring assistance completed. tl3 14:12 Jose Cleaning MD is Attending Physician. [facility] 14:23 X-ray completed. Portable x-ray completed in exam room. Patient tolerated procedure jb2 well. 14:24 XRAY Chest (1 view) In Process Unspecified. EDMS 14:25 CT completed. Patient tolerated procedure well. Patient moved to CT via stretcher. sj Patient moved back from CT. 14:26 CT Head Brain wo Cont In Process Unspecified. EDMS 14:45 Initial lab(s) drawn, by me, sent to lab. Inserted saline lock: 20 gauge in right tl3 antecubital area, using aseptic technique. Blood collected. 15:25 EKG done, by lighting engineering technician. reviewed by Jose Cleaning MD. at1 15:55 Alvin Douglas MD is Hospitalizing Provider. harrison 16:27 Echo at bedside. tl3 16:57 Ultrasound at bedside. tl3 18:28 Patient admitted, IV remains in place. tl3 18:29 US Carotid Artery Bilateral Sent. tl3 18:29 Echo w/ Doppler Sent. tl3 Administered Medications: 14:44 Drug: NS 0.9% 1000 ml Route: IV; Rate: 125 ml/hr; Site: right antecubital; Delivery: tl3 Primary tubing; 18:30 Follow up: IV Status: Completed infusion; IV Intake: 500ml tl3 15:52 Drug: NS 0.9% 500 ml Route: IV; Rate: bolus; Site: right antecubital; Delivery: Primary tl3 tubing; 15:53 Follow up: IV Status: Completed infusion; IV Intake: 500ml tl3 Intake: 15:53 IV: 500ml; Total: 500ml. tl3 18:30 IV: 500ml; Total: 1000ml. tl3 Outcome: 15:58 Decision to Hospitalize by Provider. harrison 18:27 Admitted to Med/surg accompanied by tech, via wheelchair, with chart, Report called to tl3 MARKEL [place] 18:27 Condition: stable 18:27 Instructed on the need for admit. 18:31 Patient left the ED. tl3 Signatures: Dispatcher [employer] EDMS Jose Cleaning MD MD cha Buechter, Jesse jb2 Jones, Susan sj Calderon, Audri, RN RN [email or web address] Blaire Barnes, building services engineer EKG Joann Begum4 Chayito Miller, RN RN tl3
--- NOTE | 2018-01-17 15:59 | EDPHYS ---
Physician Documentation [facility] Name: Prisca Hernandez Age: 52 yrs Sex: Female : 1965 Arrival Date: 01/17/2018 Time: 13:18 Bed 7 Private MD: Oliva Long K ED Physician Jose Cleaning HPI: 01/17 15:02 This 52 yrs old Female presents to ER via Ambulatory with complaints of harrison Dizziness, Headache. 15:02 The patient presents with dizziness, feeling faint, generalized weakness. Onset: The harrison symptoms/episode began/occurred just prior to arrival. Context: occurred at work. Modifying factors: The symptoms are alleviated by nothing, the symptoms are aggravated by standing up. Severity of symptoms: At their worst the symptoms were mild moderate in the emergency department the symptoms are unchanged. Patient's baseline: Neuro: alert and fully oriented. The patient has not experienced similar symptoms in the past. 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 - Social history:: Smoking status: Patient/guardian denies using tobacco. - Ebola Screening: : No symptoms or risks identified at this time. - Family history:: not pertinent. ROS: 15:02 Constitutional: Negative for fever, chills, and weight loss, Eyes: Negative for injury, harrison pain, redness, and discharge, ENT: Negative for injury, pain, and discharge, Neck: Negative for injury, pain, and swelling, Cardiovascular: Negative for chest pain, palpitations, and edema, Respiratory: Negative for shortness of breath, cough, wheezing, and pleuritic chest pain, Abdomen/GI: Negative for abdominal pain, nausea, vomiting, diarrhea, and constipation, Back: Negative for injury and pain, : Negative for injury, bleeding, discharge, and swelling, MS/Extremity: Negative for injury and deformity, Skin: Negative for injury, rash, and discoloration, Psych: Negative for depression, anxiety, suicide ideation, homicidal ideation, and hallucinations, Allergy/Immunology: Negative for hives, rash, and allergies, Endocrine: Negative for neck swelling, polydipsia, polyuria, polyphagia, and marked weight changes, Hematologic/Lymphatic: Negative for swollen nodes, abnormal bleeding, and unusual bruising. 15:02 Neuro: Positive for near syncope, left facial pain, 2 weeks ago had tooth extracted. on abx. Exam: 15:02 Constitutional: This is a well developed, well nourished patient who is awake, alert, harrison and in no acute distress. Head/Face: Normocephalic, atraumatic. Eyes: Pupils equal round and reactive to light, extra-ocular motions intact. Lids and lashes normal. Conjunctiva and sclera are non-icteric and not injected. Cornea within normal limits. Periorbital areas with no swelling, redness, or edema. ENT: Nares patent. No nasal discharge, no septal abnormalities noted. Tympanic membranes are normal and external auditory canals are clear. Oropharynx with no redness, swelling, or masses, exudates, or evidence of obstruction, uvula midline. Mucous membranes moist. Neck: Trachea midline, no thyromegaly or masses palpated, and no cervical lymphadenopathy. Supple, full range of motion without nuchal rigidity, or vertebral point tenderness. No Meningismus. Chest/axilla: Normal chest wall appearance and motion. Nontender with no deformity. No lesions are appreciated. Cardiovascular: Regular rate and rhythm with a normal S1 and S2. No gallops, murmurs, or rubs. Normal PMI, no JVD. No pulse deficits. Respiratory: Lungs have equal breath sounds bilaterally, clear to auscultation and percussion. No rales, rhonchi or wheezes noted. No increased work of breathing, no retractions or nasal flaring. Abdomen/GI: Soft, non-tender, with normal bowel sounds. No distension or tympany. No guarding or rebound. No evidence of tenderness throughout. Back: No spinal tenderness. No costovertebral tenderness. Full range of motion. Skin: Warm, dry with normal turgor. Normal color with no rashes, no lesions, and no evidence of cellulitis. MS/ Extremity: Pulses equal, no cyanosis. Neurovascular intact. Full, normal range of motion. Neuro: Awake and alert, GCS 15, oriented to person, place, time, and situation. Cranial nerves II-XII grossly intact. Motor strength 5/5 in all extremities. Sensory grossly intact. Cerebellar exam normal. Normal gait. Psych: Awake, alert, with orientation to person, place and time. Behavior, mood, and affect are within normal limits. Vital Signs: 13:53 BP 155 / 95; Pulse 58; Resp 14 S; Temp 97.7(O); Pulse Ox 100% on R/A; Weight 104.33 kg aa5 (R); Height 5 ft. 7 in. (170.18 cm) (R); Pain 8/10; 14:02 BP 144 / 86; Pulse 60; Resp 18; Pulse Ox 96% on R/A; tl3 15:38 BP 148 / 93; Pulse 62; Resp 18; Pulse Ox 96% ; tl3 16:27 BP 139 / 85; Pulse 57; Resp 18; Pulse Ox 99% ; tl3 17:33 BP 110 / 87; Pulse 64; Resp 18; Pulse Ox 98% on R/A; tl3 13:53 Body Mass Index 36.02 (104.33 kg, 170.18 cm) aa5 MDM: 14:12 Patient medically screened. [facility] 15:04 Data reviewed: vital signs, nurses notes, lab test result(s), EKG, radiologic studies, [facility] CT scan, plain films. 01/17 14:13 Order name: Basic Metabolic Panel; Complete Time: 15:45 [facility] 01/17 14:13 Order name: CBC with Diff; Complete Time: 15:45 [facility] 01/17 14:13 Order name: LFT's; Complete Time: 15:45 harrison 01/17 14:13 Order name: Magnesium; Complete Time: 15:45 [facility] 01/17 14:13 Order name: NT PRO-BNP; Complete Time: 15:45 [facility] 01/17 14:13 Order name: PT-INR; Complete Time: 15:45 [facility] 01/17 14:13 Order name: Troponin (emerg Dept Use Only); Complete Time: 15:45 [facility] 01/17 14:13 Order name: XRAY Chest (1 view); Complete Time: 15:45 [facility] 01/17 14:13 Order name: Lipase; Complete Time: 15:45 [facility] 01/17 14:13 Order name: CT Head Brain wo Cont; Complete Time: 15:45 [facility] 01/17 14:13 Order name: Urine Culture [facility] 01/17 15:42 Order name: Urine Dipstick--Ancillary (enter results) 01/17 16:04 Order name: Troponin I [facility] 01/17 16:04 Order name: Troponin I [facility] 01/17 14:13 Order name: EKG; Complete Time: 14:14 [facility] 01/17 14:13 Order name: Cardiac monitoring; Complete Time: 14:29 [facility] 01/17 14:13 Order name: EKG - Nurse/Tech; Complete Time: 14:29 [facility] 01/17 14:13 Order name: IV Saline Lock; Complete Time: 14:44 [facility] 01/17 14:13 Order name: Labs collected and sent; Complete Time: 14:44 [facility] 01/17 14:13 Order name: O2 Per Protocol; Complete Time: 14:29 [facility] 01/17 15:46 Order name: US Carotid Artery Bilateral [facility] 01/17 15:46 Order name: Echo w/ Doppler [facility] 01/17 16:04 Order name: Regular [facility] 01/17 16:04 Order name: EKG Electrocardiogram [facility] 01/17 16:04 Order name: EKG Electrocardiogram [facility] 01/17 16:04 Order name: EKG Electrocardiogram [facility] 01/17 16:04 Order name: EKG Electrocardiogram [facility] 01/17 17:18 Order name: US [facility] 01/17 14:13 Order name: O2 Sat Monitoring; Complete Time: 14:29 [facility] 01/17 14:13 Order name: Urine Dipstick-Ancillary (obtain specimen); Complete Time: 15:52 [facility] Administered Medications: 14:44 Drug: NS 0.9% 1000 ml Route: IV; Rate: 125 ml/hr; Site: right antecubital; Delivery: tl3 Primary tubing; 18:30 Follow up: IV Status: Completed infusion; IV Intake: 500ml tl3 15:52 Drug: NS 0.9% 500 ml Route: IV; Rate: bolus; Site: right antecubital; Delivery: Primary tl3 tubing; 15:53 Follow up: IV Status: Completed infusion; IV Intake: 500ml tl3 Disposition: 01/17/18 15:58 Hospitalization ordered by Alvin Douglas for Observation. Preliminary diagnosis are Dizziness and giddiness, Syncope and collapse, Fibromyalgia. - Bed requested for Telemetry/MedSurg (observation). - Status is Observation. tl3 - Condition is Stable. - Problem is new. - Symptoms have improved. UTI on Admission? No Signatures: Dispatcher [employer] EDKY Jose Cleaning MD MD cha Calderon, Audri RN RN aa5 Rocio Clancy RN RN df Chayito Miller RN RN tl3 Corrections: (The following items were deleted from the chart) 17:27 15:58 Hospitalization Ordered by Alvin Douglas MD for Observation. Preliminary diagnosis df is Dizziness and giddiness; Syncope and collapse; Fibromyalgia. Bed requested for Telemetry/MedSurg (observation). Status is Observation. Condition is Stable. Problem is new. Symptoms have improved. UTI on Admission? No. harrison 18:31 17:27 01/17/2018 15:58 Hospitalization Ordered by Alvin Douglas MD for Observation. tl3 Preliminary diagnosis is Dizziness and giddiness; Syncope and collapse; Fibromyalgia. Bed requested for Telemetry/MedSurg (observation). Status is Observation. Condition is Stable. Problem is new. Symptoms have improved. UTI on Admission? No. df
[2018-01-17] MEDS ORDERED: ONDANSETRON 4 MG/2 ML VIAL IV PRN (16:01)
[2018-01-17] MEDS ORDERED: ACETAMINOPHEN 500 MG TAB PO PRN (16:01)
--- NOTE | 2018-01-17 16:19 | EKG ---
Test Date: 2018-01-17 Test Time: 15:22:10 Test Tube Maker: THEO MEASUREMENT RESULTS: Intervals: Rate: 57 FL: 164 QRSD: 86 QT: 432 QTc: 420 [place]: P: 6 FL: 164 QRS: 22 T: 16 INTERPRETIVE STATEMENTS: Sinus bradycardia Otherwise normal ECG No previous ECG available for comparison Electronically Signed On 01-17-18 16:18:55 CDT by Dick Cheema
[2018-01-17 17:00] LABS: Urine Blood NEGATIVE (NEG); Urine Glucose NEGATIVE (NEG); Urine Protein NEGATIVE (NEG); Urine Specific Gravity 1.015 (1.005-1.030); Urine pH 6.5 (5.0-7.0)
--- NOTE | 2018-01-17 17:17 | RAD REPORT ---
EXAM DESCRIPTION: - CP - 01/17/2018 5:10 pm CLINICAL HISTORY: Syncope COMPARISON: None. TECHNIQUE: Real-time sonographic evaluation of both carotid systems was performed. Tsai scale and Do ppler interrogation were performed with waveform tracing bilaterally. FINDINGS: Normal high resistance waveforms are noted in both external carotid arteries. The common c arotid arteries and internal carotid arteries show normal low resistance waveforms. No significant plaque formation is seen. Peak systolic and end diastolic velocity values and the ICA/ CCA ratios are in the non-hemodynamically significant range. Antegrade flow seen in both vertebral arteries. Velocity values and ratios were recorded and are retained in the patient's imaging records. IMPRESSION: No significant atherosclerotic changes noted. No evidence of a hemodynamically significant stenosis.
[2018-01-17] MEDS: NA CHLORIDE 0.9% 1,000 ML IV SCH (18:46)
[2018-01-17 19:25] VITALS: BMI 37.1
--- NOTE | 2018-01-17 20:51 | RAD REPORT ---
EXAM DESCRIPTION: CTSinus Wo Cont01/17/2018 8:37 pm CLINICAL HISTORY: Facial pain COMPARISON: None. TECHNIQUE: Computed axial tomography of the sinuses were obtained with coronal and sagittal reconstr uction. All CT scans are performed using dose optimization technique as appropriate and may include automated exposure control or mA/KV adjustment according to patient size. FINDINGS: A posterior left maxillary tooth has been removed. A 3 millimeter bony defect of the left maxillary floor is present. Moderate mucoperiosteal thickening involves the left maxillary sinus. Remainder of the sinuses are clear. The ostiomeatal complexes are patent. The mastoids are clear. IMPRESSION: 3 millimeter bony defect involves the left maxillary floor adjacent to the site of extra ction of a left maxillary tooth [id number] chronic left maxillary sinusitis
[2018-01-17] MEDS: TRAMADOL HCL 50 MG TAB PO PRN (21:42)
--- NOTE | 2018-01-17 21:47 | P.HP ---
Certification for Inpatient Patient admitted to: Observation With expected LOS: <2 Midnights Practitioner: I am a practitioner with admitting privileges, knowledge of patient current condition, hospital course, and medical plan of care. Services: Services provided to patient in accordance with Admission requirements found in Title 42 Section 412.3 of the Code of Federal Regulations Patient History Date of Service: 01/17/18 Reason for admission: L FACE NUMBNESS, HAND AND FEET NUMBNESS History of Present Illness: MS. ALMAZAN HAS HAD COMLICATED DENTAL WORK BY LOCAL DENTIST AFTER THAT SHE HAS SEVERE PAIN ON L SIDE OF FACE , NOW SHE HAS DIZZINESS, MAHIN HANDS NUMBNESS AND MAHIN. FEET NUMBNESS. SHE SAYS IT IS HARD TO EXPLAIN AND IT IS LIKE OUT OF BODY EXPERIENCE. Allergies No Known Allergies Allergy (Unverified 10/11/12 00:30) Home Medications: Atenolol [Tenormin*] 50 mg PO DAILY 01/17/18 Atorvastatin Calcium [Lipitor*] 20 mg PO DAILY 01/17/18 Celecoxib [Celebrex*] 200 mg PO PRN PRN 01/17/18 Duloxetine HCl [Cymbalta] 30 mg PO DAILY 01/17/18 Eletriptan HBr [Relpax] 40 mg PO PRN PRN 01/17/18 Losartan Potassium [Cozaar*] 50 mg PO DAILY 01/17/18 Omeprazole 20 mg PO PRN PRN 01/17/18 Topiramate 50 mg PO DAILY 01/17/18 Trazodone [Desyrel*] 50 mg PO BEDTIME 01/17/18 - Past Medical/Surgical History -: migrains -: -: foot sx -: knee sx -: ankle sx -: breast sx, cyst removal -: shoulder sx -: elbow sx -: heel sx - Social History Alcohol use: Yes CD- Drugs: No Caffeine use: Yes Review of Systems 10-point ROS is otherwise unremarkable General: Weakness, Malaise ENT: Nose Pain Physical Examination - Vital Signs Temperature: 98.6 F Blood Pressure: 110/87 Pulse: 64 Respirations: 18 Pulse Ox (%): 98 - Physical Exam General: In no apparent distress, Moderate distress, Obese HEENT: Other (TENDER L SIDE SINUSES.) Neck: Supple, 2+ carotid pulse no bruit, No LAD, Without JVD or thyroid abnormality Respiratory: Clear to auscultation bilaterally, Normal air movement Cardiovascular: Regular rate/rhythm, Normal S1 S2 Gastrointestinal: Normal bowel sounds, No tenderness Musculoskeletal: No tenderness Integumentary: No rashes Neurological: Normal gait, Normal speech, Normal strength at 5/5 x4 extr, Normal tone, Normal affect Lymphatics: No axilla or inguinal lymphadenopathy - Studies Laboratory Data (last 24 hrs) 01/17/18 14:40: PT 11.6, INR 0.98 01/17/18 14:40: WBC 8.1, Hgb 12.5, Hct 38.3, Plt Count 228 01/17/18 14:40: Sodium 139, Potassium 3.7, BUN 15, Creatinine 1.10, Glucose 129 H, Magnesium 2.2, Total Bilirubin 0.4, AST 17, ALT 36, Alkaline Phosphatase 84, Lipase 103 Assessment and Plan - Problems (Diagnosis) (1) Injury of paranasal sinus Current Visit: Yes Status: Acute Plan: THIS MAY TAKE TIME TO HEAL. IT SEEMS LIKE AN INJURY AFTER DENTAL WORK. IV ABX TO RULE OUT SUPERINEFCTION. Qualifiers: Encounter type: initial encounter Qualified Code(s): S09.92XA - Unspecified injury of nose, initial encounter (2) Acute sinusitis Current Visit: Yes Status: Acute Plan: ABOVE. (3) Paresthesia of foot, bilateral Current Visit: Yes Status: Acute Plan: UNCLEAR IF THIS IS FROM JUST WORRY AND HYPERVENTILATION. MRI IN AM. (4) Paresthesia of hand, bilateral Current Visit: Yes Status: Acute Plan: ABOVE, I WILL BE SURPRISED IF WE FIND ANY REAL PROBLEM. CHECK B12, SED RATE, JULIÁN. - Advance Directives Does patient have a Living Will: No Does patient have a Durable POA for Healthcare: No
[2018-01-17] MEDS ORDERED: ELETRIPTAN HBR 40 MG PO PRN (21:54)
[2018-01-17] MEDS ORDERED: CELECOXIB 100 MG CAPSULE PO PRN (21:54)
[2018-01-17] MEDS ORDERED: HOME MED 1 EA UNK (Omeprazole [Omeprazole] 20 MG) PO PRN (21:54)
[2018-01-17] MEDS ORDERED: ENOXAPARIN 40 MG/0.4 ML SQ SCH (23:00)
[2018-01-17] MEDS ORDERED: AMPICILLIN/SULBACTAM 3GM/VIAL ONE (23:28)
[2018-01-17] MEDS ORDERED: NA CHLORIDE 0.9% 100 ML ONE (23:31)
[2018-01-17] MEDS: AMPICILLIN/SULBACT 3 GM in NA CHLORIDE 0.9% 100 ML IVPB SCH (23:35)
[2018-01-18] MEDS: NA CHLORIDE 0.9% 1,000 ML IV SCH ×3 (00:15→09:00)
[2018-01-18] MEDS: TRAMADOL HCL 50 MG TAB PO PRN ×2 (04:03→10:06)
[2018-01-18] MEDS ORDERED: NA CHLORIDE 0.9% 100 ML ONE (05:15)
[2018-01-18] MEDS: AMPICILLIN/SULBACT 3 GM in NA CHLORIDE 0.9% 100 ML IVPB SCH (05:25)
[2018-01-18 05:37] LABS: Absolute Lymphocytes (CBC) 2.1 K/uL (0.7-4.9); Absolute Monocytes 0.5 K/uL (0.1-1.3); Absolute Neutrophil 2.3 K/uL (1.8-8.0); Basophils % 0.9 % (0-1.3); Eosinophils % 3.5 % (0-4.4); Hematocrit 34.8 % (36.0-45.0); Lymphocytes % 41.5 % (15.3-44.8); MCH 28.6 pg (27.0-35.0); MCV 86.3 fL (80-100); MPV 9.3 fL (7.6-11.3); Monocytes % 9.3 % (3.3-12.3); RBC Red Blood Cell Count 4.03 M/uL (3.86-4.86)
--- NOTE | 2018-01-18 07:12 | ECHO ---
HEIGHT: 5 ft 7 in WEIGHT: 237 lb 1.6 oz DATE OF STUDY: 01/17/[address]: Jose Cleaning MD 2-DIMENSIONAL: YES M.MODE: YES DOPPLER: YES COLOR FLOW: YES TDS: PORTABLE: DEFINITY: BUBBLE STUDY: DIAGNOSIS: SYNCOPE CARDIAC HISTORY: CATHERIZATION: NO SURGERY: NO PROSTHETIC VALVE: NO PACEMAKER: NO MEASUREMENTS (cm) DIASTOLIC (NORMALS) SYSTOLIC (NORMALS) IVSd 0.9 (0.6-1.2) LA Diam 3.8 (1.9-4.0) LVEF 62% LVIDd 4.7 (3.5-5.7) LVIDs 3.1 (2.0-3.5) %FS 34% LVPWd 1.0 (0.6-1.2) Ao Diam 2.4 (2.0-3.7) 2 DIMENSIONAL ASSESSMENT: RIGHT ATRIUM: NORMAL LEFT ATRIUM: NORMAL RIGHT VENTRICLE: NORMAL LEFT VENTRICLE: NORMAL TRICUSPID VALVE: NORMAL MITRAL VALVE: NORMAL PULMONIC VALVE: NORMAL AORTIC VALVE: NORMAL PERICARDIAL EFFUSION: NONE AORTIC ROOT: NORMAL LEFT VENTRICULAR WALL MOTION: NORMAL DOPPLER/COLOR FLOW: TRACE TRICUSPID REGURGITATION COMMENTS: TRACE TRICUSPID REGURGITATION. NORMAL RIGHT VENTRICULAR SYSTOLIC PRESSURE. NORMAL LEFT VENTRICULAR SIZE AND FUNCTION. NO WALL MOTION ABNORMALITY. NO EFFUSION. TECHNOLOGIST: SHRAON JALLOH
[2018-01-18] MEDS ORDERED: INFLUENZA VACCINE (for 3y+) 0.5 ML DOSE IMVAC ONE (08:00)
[2018-01-18] MEDS ORDERED: ASPIRIN EC 81 MG TAB PO SCH (09:00)
[2018-01-18] MEDS ORDERED: LOSARTAN POTASSIUM 50 MG TABLET PO SCH (09:00)
[2018-01-18] MEDS ORDERED: ATENOLOL 50 MG TAB PO SCH (09:00)
[2018-01-18] MEDS ORDERED: DULOXETINE 30 MG CAP PO SCH (09:00)
[2018-01-18] MEDS ORDERED: TOPIRAMATE 25 MG TAB PO SCH (09:00)
[2018-01-18 09:13] VITALS: O2SAT 94
--- NOTE | 2018-01-18 09:37 | RAD REPORT ---
EXAM DESCRIPTION: MRI - Brain W/Wo Cont - 01/18/2018 8:51 am CLINICAL HISTORY: weakness CVA/TIA COMPARISON: Sinus Wo Cont dated 01/17/2018 TECHNIQUE: Multi-sequence, multiplanar MR imaging of the brain was performed with contrast. FINDINGS: No intracranial hemorrhage, hydrocephalus, extra-axial fluid collection or acute infarctio n. 3.0 x 2.4 cm enhancing left CP angle mass is present. There is mild mass effect on the brainstem t o the right. DWI is negative for acute CVA. The midline structures are normally formed. Moderate mucoperiosteal thickening of left maxillary antr um seen. IMPRESSION: 3.0 x 2.4 cm enhancing left CP angle mass is identified, likely representing an acoustic schwannoma or meningioma. Mild to moderate left maxillary sinus thickening. Findings were discussed with Dr. Douglas 9:30 a.m. 01/18/2018 by telephone.
[2018-01-18 12:48] VITALS: BP 155/82; TEMP 98.3
--- NOTE | 2018-01-18 13:11 | P.DS ---
Admission Date: 01/17/18 Discharge Date: 01/18/18 Disposition: ROUTINE DISCHARGE Discharge Condition: FAIR Reason for Admission: L FACE NUMBNESS, HAND AND FEET NUMBNESS - Problems (1) Injury of paranasal sinus Current Visit: Yes Status: Acute Qualifiers: Encounter type: initial encounter Qualified Code(s): S09.92XA - Unspecified injury of nose, initial encounter (2) Acute sinusitis Current Visit: Yes Status: Acute (3) Paresthesia of foot, bilateral Current Visit: Yes Status: Acute (4) Paresthesia of hand, bilateral Current Visit: Yes Status: Acute Brief History of Present Illness: MS. ALMAZAN HAS HAD COMLICATED DENTAL WORK BY LOCAL DENTIST AFTER THAT SHE HAS SEVERE PAIN ON L SIDE OF FACE , NOW SHE HAS DIZZINESS, MAHIN HANDS NUMBNESS AND MAHIN. FEET NUMBNESS. SHE SAYS IT IS HARD TO EXPLAIN AND IT IS LIKE OUT OF BODY EXPERIENCE. 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 I CALLED DR. TRAORE TO HAVE HER SEE AN ENT OR NEUROSURGEON. SHE IS AWARE SHE WILL TAKE VITAMIN D ALSO. I ALSO CALLED DR. QUINONES AND DISCUSSED IF STEROID PACK IS OKAY AND HE SAYS IT MAY HELP. Vital Signs/Physical Exam: Temp Pulse Resp BP Pulse Ox 98.3 F 59 16 155/82 H 100 01/18/18 12:00 01/18/18 12:00 01/18/18 12:00 01/18/18 12:00 01/18/18 12:00 Laboratory Data at Discharge: WBC 5.1 K/uL (4.3-10.9) D 01/18/18 04:27 Hgb 11.5 g/dL (12.0-15.0) L 01/18/18 04:27 Hct 34.8 % (36.0-45.0) L 01/18/18 04:27 Plt Count 236 K/uL (152-406) 01/18/18 04:27 PT 11.6 SECONDS (9.5-12.5) 01/17/18 14:40 INR 0.98 01/17/18 14:40 Sodium 145 mmol/L (136-145) 01/18/18 04:27 Potassium 4.0 mmol/L (3.5-5.1) 01/18/18 04:27 BUN 14 mg/dL (7-18) 01/18/18 04:27 Creatinine 0.90 mg/dL (0.55-1.3) 01/18/18 04:27 Glucose 118 mg/dL (74-106) H 01/18/18 04:27 Magnesium 2.2 mg/dL (1.8-2.4) 01/17/18 14:40 Total Bilirubin 0.4 mg/dL (0.2-1.0) 01/17/18 14:40 AST 17 U/L (15-37) 01/17/18 14:40 ALT 36 U/L (12-78) 01/17/18 14:40 Alkaline Phosphatase 84 U/L (45-117) 01/17/18 14:40 Troponin I < 0.02 ng/mL (0.0-0.045) 01/17/18 19:25 Lipase 103 U/L (73-393) 01/17/18 14:40 Home Medications: Atenolol [Tenormin*] 50 mg PO DAILY 01/17/18 Atorvastatin Calcium [Lipitor*] 20 mg PO DAILY 01/17/18 Duloxetine HCl [Cymbalta] 30 mg PO DAILY 01/17/18 Eletriptan HBr [Relpax] 40 mg PO PRN PRN 01/17/18 Losartan Potassium [Cozaar*] 50 mg PO DAILY 01/17/18 Omeprazole 20 mg PO PRN PRN 01/17/18 Topiramate 50 mg PO DAILY 01/17/18 Trazodone [Desyrel*] 50 mg PO BEDTIME 01/17/18 Methylprednisolone [Medrol dosepack] 4 mg PO DIRECTED #1 raúl 01/18/18 New Medications: Methylprednisolone [Medrol dosepack] 4 mg PO DIRECTED #1 raúl Patient Discharge Instructions: TAKE THE MRI REPORT TO DR. STORM AND DR. TRAORE. FOR ACOUSTIC NEUROMA. MEDROL DOSE PACK MAY HELP SWELLING IN THE SINUS. FU WITH DR. QUINONES ALSO. HE IS AWARE OF THE SINUS ISSUE. TAKE VITAMIN D3 2000 UNITS DAILY. Diet: Regular
[2018-01-18] MEDS ORDERED: ENOXAPARIN 40 MG/0.4 ML SQ SCH (17:00)
[2018-01-18] MEDS ORDERED: ATORVASTATIN 20 MG TAB PO SCH (21:00)
[2018-01-18] MEDS ORDERED: TRAZODONE 50 MG TABLET PO SCH (21:00)
[2018-01-21 04:45] LABS: Albumin, (SPE) 3.1 g/dL (3.8-4.8); Alpha-1-Globulins 0.3 g/dL (0.2-0.3); Alpha-2-Globulins 0.7 g/dL (0.5-0.9); Gamma Globulins 0.8 g/dL (0.8-1.7); INTERPRETATION REPORT
== END 2018-01-18 15:30 | disposition home or self-care (01) ==
LOC: ER 13:17 → ERHOLD 16:00 → 2ND 18:23
PROVIDERS: ADMIT Internal Medicine; ATTEND Internal Medicine
DX: J01.90 Acute sinusitis, unspecified (principal); S09.92XA Unspecified injury of nose, initial encounter; Y83.8 Other surgical procedures as the cause of abnormal reaction of the patient, or of later complication, without mention of misadventure at the time of the procedure; Y82.8 Other medical devices associated with adverse incidents; Y92.531 Health care provider office as the place of occurrence of the external cause; R20.2 Paresthesia of skin; Z23 Encounter for immunization
CPT/HCPCS: 36415; 70450; 70486; 70553; 71045; 80048; 80076; 81003; 82306; 82607; 83690; 83735; 83880; 84165; 84484; 85025; 85610; 86038; 87086; 87088; 93005; 93306; 93880; 96360; 96361; 99285; A9577; G0008; G0378; J0295; J1650; J7030; Q2035

== ENCOUNTER 2018-01-31 17:20 | Observation (INO) | payer BC ==
--- OUTSIDE RECORDS SUMMARY | 2018-01-31 17:29 | XMS REPORT | Clinical Summary ---
:[address] [facility] Address [address] [place] [address] Care Team Providers Name Role Phone Pcp, No Primary Care Provider Unavailable Allergies No Known Allergies Medications Medication Sig Dispensed Refills Start Date End Date Status venlafaxine (EFFEXOR) Take 50 mg by mouth 0 Active 50 MG tablet 2 (two) times daily. atenolol (TENORMIN) Take 25 mg by mouth 0 Active 25 MG tablet daily. traZODone (DESYREL) Take 50 mg by mouth 0 Active 50 MG tablet nightly. topiramate (TOPAMAX) Take 50 mg by mouth 0 Active 50 MG tablet 2 (two) times daily. omeprazole (PRILOSEC) Take 10 mg by mouth 0 Active 10 MG capsule daily. eletriptan (RELPAX) Take 10 mg by mouth 0 Active 20 MG tablet once as needed for Headaches Do NOT exceed eighty (80) mg in 24 hours. . Active Problems Not on file Encounters Date Type Specialty Care Team Description [facility] Richard Delgadillo 07/23/2017 Outside Orders [facility], Breast microcalcifications Scheduling Richard Delgadillo (Primary Dx) after 01/30/2017 Social History Tobacco Use Types Packs/Day Years Used Date Never Assessed Smokeless Tobacco: Never Used Alcohol Use Drinks/Week oz/Week Comments Yes occasional Sex Assigned at Date Recorded Not on file Job Start Date Occupation Industry Not on file Not on file Not on file Travel History Travel Start Travel End No recent travel history available. Last Filed Vital Signs Vital Sign Reading [...] CDT Plan of Treatment Not on file Procedures Procedure Name Priority Date/Time Associated Diagnosis Comments TISSUE EXAM AP Routine 07/26/2017 Results for 1:43 PM CDT this procedure are in the results section. MM BREAST SPECIMEN PAUL 07/26/2017 Results for RADIOGRAPH RIGHT 11:21 AM CDT this procedure are in the results section. MM, DIGITAL, Routine 07/26/2017 Results for UNILATERAL, CONFER 11:20 AM CDT this procedure JACKSON, MAMMO, RIGHT are in the results section. MM STEREOTACTIC Routine 07/26/2017 Breast Results for BREAST BIOPSY - 11:19 AM CDT microcalcifications this procedure RIGHT are in the results section. after 01/30/2017 Results Tissue Exam (07/26/2017 1:43 PM CDT) Case Report Surgical Pathology Report Case: [id number] [facility] Authorizing Provider:Orlando Jansen MDCollected: 07/26/2017 [facility] Women's CenterReceived: 07/26/2017 [facility] Pathologist: Shirley Ortiz MD Specimen:Breast, Right, RIGHT UPPER OUTER BREAST CALCIFICATIONS DIAGNOSIS A. 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 CPT Code(s) A. 69281 x 1 [facility] CLINICAL HISTORY Questionable sclerosing lesion [facility] SPECIMEN SOURCE Right upper outer breast [facility] calcification. [facility] GROSS DESCRIPTION Specimen is received in [facility] formalin-filled container [facility] labeled with the patient's information and labeled "right upper outer breast calcification" and consists of four yellow-white breast core biopsies ranging in length from 0.9 to 2 cm. Specimen is entirely submitted A1. Ink code: Black. Specimen is entirely submitted A1. CG/bc MICROSCOPIC DESCRIPTION A. Performed. [facility] Specimen Tissue - Breast, Right Performing Organization Address City/State/Zipcode Phone Number [facility] [address] [place] [address] [phone] ORICK MM Breast Specimen Radiograph Right (07/26/2017 11:21 AM CDT) Narrative Performed At [facility] #[id number] - MM, MAMMO, SPECIMEN, RADIOGRAPH, RIGHT SPECIMEN RIGHT BREAST: 07/26/2017 Four stereotactic guided biopsy specimens were imaged for the area of calcifications located in the right breast at 10 o'clock middle depth. IMPRESSION: SPECIMEN The imaged specimens includes the calcifications. Orlando Jansen M.D. pth/:07/26/2017 13:06:46 Cpas: Anastacia FRAUSTO)(Julio), [facility] [id number] Procedure Note Interface, External Ris In - 07/26/2017 3:54 PM CDT #[id number] - MM, MAMMO, SPECIMEN, RADIOGRAPH, RIGHT SPECIMEN RIGHT BREAST: 07/26/2017 Four stereotactic guided biopsy specimens were imaged for the area of calcifications located in the right breast at 10 o'clock middle depth. IMPRESSION: SPECIMEN The imaged specimens includes the calcifications. Orlando Jansen M.D. pth/:07/26/2017 13:06:46 Cpas: Anastacia SHERMAN (R)(M), [facility] [id number] Performing Organization Address City/State/Zipcode Phone Number [facility] MM, DIGITAL, UNILATERAL, CONFER JACKSON, MAMMO, RIGHT (07/26/2017 11:20 AM CDT) Narrative Performed At [facility] #[id number] - MM, DIGITAL, UNILATERAL, CONFER JACKSON, MAMMO, [...] pathology results. Orlando Jansen M.D. pth/:07/26/2017 13:06:15 Cpas: Anastacia FRAUSTO)(Julio), [facility] Mammogram BI-RADS: Post-procedure mammogram for marker placement [id number] Procedure Note Interface, External Ris In - 07/26/2017 3:54 PM CDT #[id number] - MM, DIGITAL, UNILATERAL, CONFER JACKSON, MAMMO, [...] pathology results. Orlando Jansen M.D. pth/:07/26/2017 13:06:15 Cpas: Anastacia FRAUSTO)(Julio), [facility] Mammogram BI-RADS: Post-procedure mammogram for marker placement [id number] Performing Organization Address City/State/Zipcode Phone Number [facility] MM Stereotactic breast biopsy right (07/26/2017 11:19 AM CDT) Narrative Performed At Addendum Begins [facility] AMENDMENT: 07/29/2017 Orlando Jansen M.D. Pathology results are now available and demonstrate fibroadenoma with calcifications. This is concordant with the imaging findings. Addendum Ends #[id number] - MM, STEREOTACTIC BIOPSY, BREAST, RIGHT STEREOTACTIC [...] correct location, four specimens were obtained using AdviceIQ EVIVA device.A clip was inserted into the [...] procedure complications. Orlando Jansen M.D. pth/:07/26/2017 13:05:30 Cpas: Anastacia Shoemaker RT(Black)(M), [facility] [id number] Procedure Note Interface, External Ris In - 07/29/2017 3:02 PM CDT Addendum Begins AMENDMENT: 07/29/2017 Orlando Jansen M.D. Pathology results are now available and demonstrate fibroadenoma with calcifications. This is concordant with the imaging findings. Addendum Ends #[id number] - MM, STEREOTACTIC BIOPSY, BREAST, RIGHT STEREOTACTIC [...] correct location, four specimens were obtained using FollicumIVA device. A clip was inserted into the [...] with no apparent post procedure complications. Orlando aJnsen M.D. pth/:07/26/2017 13:05:30 Cpas: Anastacia Shoemaker RT(Black)(M), [facility] [id number] Performing Organization Address City/State/Zipcode Phone Number [facility] after 01/30/2017 Insurance Payer Benefit Plan / Subscriber ID Type Phone Address Group [employer]UE [employer]OSS/[employer] OS xxxxxxxxxxxx PPO [phone] [address] [place] [place]/PP[place] [address]
--- OUTSIDE RECORDS SUMMARY | 2018-01-31 17:29 | XMS REPORT | Continuity of Care Document ---
:1965 Author Organization Interface Problems Problem Status Onset Date Classification Date Comments Source Reported Medications Medication Details Route Status Patient Ordering Order Source Instructions Provider Date Allergies, Adverse Reactions, Alerts Substance Category Reaction Severity Reaction Status Date Comments Source type Reported Immunizations Immunization Date Given Site Status Last Updated Comments Source Results Order Results Value Reference Date Interpretation Comments Source Name Range Vital Signs Vital Sign Value Date Comments Source Encounters Location Location Encounter Encounter Reason Attending ADM DC Status Source Details Type Number For Provider Date Date Visit Outpatient [id number] JOE DUDLEY 01/25 [facility]2017 [facility] [id number] ERIBERTO 02/02 [facility] Outpatient [id number] ERIBERTO 03/02 [place] [address] [facility] Procedures Procedure Code Date Perfomer Comments Source
--- OUTSIDE RECORDS SUMMARY | 2018-01-31 17:29 | XMS REPORT ---
:1965 [facility] Address [address] [place] [address] Dr. Ramirez [address] [place] [address] Care Team Providers Name Role Phone JANETTE PENA Unavailable Unavailable Problems This patient has no known problems. Allergies, Adverse Reactions, Alerts This patient has no known allergies or adverse reactions. Medications This patient has no known medications. Results Test Description Test Time Test Comments Text Results Atomic Results Result Comments MM, STEREOTACTIC 2017-07-29 Reason for Addendum BeginsMRN#: BIOPSY, BREAST, 10:16:00 Exam:->Microcalifications [id number]: RIGHT 07/29/2017 Orlando Jansen M.D. Pathology results are now available and demonstrate fibroadenoma with calcifications.This is concordant with the imaging findings. Addendum EndsMRN#: [id number] - MM, STEREOTACTIC BIOPSY, BREAST, RIGHTSTEREOTACTIC GUIDED [...] correct location, four specimens were obtained using Gourmant device. A clip was inserted into the [...] procedure complications. Orlando Jansen M.D. pth/:07/26/2017 13:05:30 Chicken Picker: Anastacia Shoemaker RT(Black)(M), [facility] [id number] UE EXAM 2017-07-27 Surgical Pathology 16:52:00 Report Case: [id number] Authorizing Provider: Orlando Jansen MD Collected: 07/26/2017 1343 Ordering Location: [facility] Women's Center Received: 07/26/2017 1343 Pathologist: Shirley Ortiz MD Specimen: Breast, Right, RIGHT UPPER OUTER BREAST CALCIFICATIONS A. 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 94771 x 1 Questionable sclerosing lesionRight upper outer [...] Performed. MM, DIGITAL, 2017-07-26 Right breast calcifications #[id number] UNILATERAL, 13:06:00 - MM, DIGITAL, CONFER JACKSON, [...] pathology results. Orlando Jansen M.D. pth/:07/26/2017 13:06:15 Chicken Picker: Anastacia SHETTY (R)), [facility] Mammogram BI-RADS: Post-procedure mammogram for marker placement [id number] , MAMMO, 2017-07-26 Reason for exam:->Right #[id number] SPECIMEN, 13:06:00 breast calcifications - MM, MAMMO, SPECIMEN, RADIOGRAPH, RIGHT RADIOGRAPH, RIGHTSPECIMEN RIGHT BREAST: 07/26/2017Four stereotactic guided biopsy specimens were imaged for the area of calcifications located in the right breast at 10 o'clock middle depth. IMPRESSION: SPECIMENThe imaged specimens includes the calcifications. Orlando Jansen M.D. pth/:07/26/2017 13:06:46 Chicken Picker: Anastacia SHETTY (R)), [facility] [id number]
[2018-01-31 18:09] VITALS: BMI 37.4
[2018-01-31] MEDS: MORPHINE 2 MG/ML SYR IV PRN ×3 (18:38→23:46)
[2018-01-31] MEDS: ONDANSETRON 4 MG/2 ML VIAL IV PRN (18:39)
[2018-01-31] MEDS: D5.45NS W/KCL 20MEQ 20 MEQ/1,000 ML BAG IV SCH (18:41)
[2018-01-31] MEDS ORDERED: SOD CHLORIDE 0.65% NASAL SPRAY NAS SCH (18:45)
[2018-01-31] MEDS: PIPER/TAZO/NS 3.375gm 3.375 GM/100 ML BAG IVPB SCH (19:40)
[2018-01-31] MEDS: SOD CHLORIDE 0.65% NASAL SPRAY NAS SCH ×2 (19:41→21:59)
[2018-01-31] MEDS ORDERED: PROMETHAZINE 25 MG/ML VIAL IV PRN (20:01)
[2018-01-31 22:57] LABS: Urine Appearance CLEAR; Urine Bilirubin NEGATIVE (NEG); Urine Blood NEGATIVE (NEG); Urine Color YELLOW; Urine Glucose NEGATIVE (NEG); Urine Protein NEGATIVE (NEG); Urine Specific Gravity 1.025 (1.005-1.030); Urine Urobilinogen 0.2 mg/dL (0.2-1.0)
[2018-01-31 23:39] LABS: Urine Microscopic Reflex ORDER UMIC
[2018-02-01 00:29] LABS: Urine Bacteria <20 /HPF (<20); Urine Culture Reflex Order REFLEXED; Urine Mucus LIGHT /HPF (NONE SEEN); Urine RBC NONE SEEN /HPF (NONE SEEN)
[2018-02-01] MEDS: MORPHINE 2 MG/ML SYR IV PRN ×4 (03:04→21:51)
[2018-02-01] MEDS: ONDANSETRON 4 MG/2 ML VIAL IV PRN ×2 (03:05→21:51)
[2018-02-01] MEDS: D5.45NS W/KCL 20MEQ 20 MEQ/1,000 ML BAG IV SCH ×2 (03:36→15:00)
[2018-02-01] MEDS: PIPER/TAZO/NS 3.375gm 3.375 GM/100 ML BAG IVPB SCH ×3 (03:37→20:50)
[2018-02-01] MEDS ORDERED: ELETRIPTAN HBR 40 MG PO PRN (07:27)
[2018-02-01] MEDS ORDERED: PANTOPRAZOLE 40MG TABLET PO PRN (07:33)
[2018-02-01] MEDS: SOD CHLORIDE 0.65% NASAL SPRAY NAS SCH ×7 (08:00→20:00)
[2018-02-01] MEDS ORDERED: DULOXETINE 30 MG CAP PO SCH (09:00)
[2018-02-01] MEDS ORDERED: TOPIRAMATE 25 MG TAB PO SCH (09:00)
[2018-02-01] MEDS ORDERED: LOSARTAN POTASSIUM 50 MG TABLET PO SCH (09:00)
[2018-02-01] MEDS ORDERED: ATENOLOL 50 MG TAB PO SCH (09:00)
[2018-02-01] MEDS ORDERED: Ringers Lactate 1,000 ML IV ONE (16:18)
[2018-02-01] MEDS ORDERED: OXYMETAZOLINE HCL 0.05% 15ML NAS ONE (16:19)
[2018-02-01] MEDS ORDERED: NA CHLORIDE 0.9% 500 ML ONE (16:20)
[2018-02-01] MEDS ORDERED: LIDOCAINE 1% W/EPI 1:100,000 MDV 50 ML VIAL ONE (16:20)
[2018-02-01] MEDS ORDERED: ROCURONIUM 50 MG/5 ML VIAL IV ONE (17:01)
[2018-02-01] MEDS ORDERED: FENTANYL CITR 100 MCG/2 ML ONE (17:01)
[2018-02-01] MEDS ORDERED: PROPOFOL 200 MG/20 ML VIAL IV ONE (17:01)
--- NOTE | 2018-02-01 17:01 | P.PN ---
Date of Service: 02/01/18 7AM Patient now with R sided CAST. Pain and nausea moderately controlled. Still with photophobia Vitals reviewed. NAD. PERRL. L NC with purulence. OR unavailable this AM. OK to eat breakfast and schedule L maxillary antrostomy for 5PM. Discussed plan with patient and nurse Continue Zosyn for now. Start home meds including migraine abortive and prophylactic therapy. Current CAST likely related to migraine but given findings on exam with persistent and worsening left acute on chronic sinusitis despite multiple course of oral/outpatient Abx, will proceed with operative therapy.
[2018-02-01] MEDS ORDERED: ONDANSETRON HCL 40 MG/20 ML VIAL ONE (17:28)
[2018-02-01] MEDS ORDERED: DEXAMETHASONE 10 MG/ML VIAL ONE (17:28)
[2018-02-01] MEDS ORDERED: GLYCOPYRROLATE 0.2 MG/ML SYR ONE (17:44)
[2018-02-01] MEDS ORDERED: LABETALOL 20 MG/4ML SYRINGE IV ONE (17:44)
[2018-02-01] MEDS ORDERED: NEOSTIGMINE 1 MG/ML -5 ML SYRINGE ONE (17:44)
[2018-02-01] MEDS ORDERED: KETOROLAC 30 MG/ML INJ ONE (17:44)
[2018-02-01] MEDS ORDERED: MEPERIDINE HCL 25 MG/0.5 ML ONE (17:46)
--- NOTE | 2018-02-01 17:59 | P.BOP ---
Preoperative diagnosis: acute and chronic maxillary sinusitis Postoperative diagnosis: same Primary procedure: NE with L maxillary antrostomy Library Monitor: NONE,NONE Estimated blood loss: 50ml Specimen: L maxillary sinus Findings: very inflammed, copious pus Anesthesia: General Complications: None Implants: Xerogel dissolvable nasal dressing Fluids & blood products: crystalloid 400ml Transferred to: Recovery Room Condition: Good
[2018-02-01] MEDS ORDERED: NALOXONE 0.4 MG/ML VIAL ONE (18:11)
--- NOTE | 2018-02-01 18:13 | HP ---
Date of Admission: 01/31/2018 Admission Diagnoses: Acute maxillary sinusitis, chronic maxillary sinusitis, oral antral fistula, atypical facial pain, failure of outpatient medical therapy. History Of Present Illness: Prisca Cobb is a 52-year-old white female who I evaluated last week for chronic rhinosinusitis including left maxillary sinusitis with oral antral fistula. The patient underwent dental extraction at [facility] for a decayed tooth under a crown. She was on antibiotics for 2-3 weeks prior to the extraction and following the extraction was having severe dental cheek, facial, and left ear pain. She was seen in the emergency room and told she did not have a dry socket and was subsequently seen by oral surgeon, Dr. Samuels, and treated with additional oral antibiotics and oral steroids. She continued to have severe pain and was subsequently hospitalized. During her hospitalization, she underwent a CT scan of the sinus, which demonstrated a bony defect between the oral cavity and left maxillary sinusitis. The bony defect appeared filled with soft tissue density, but it was uncertain as to whether this was secretions, pus, or true soft tissue. There was moderate mucosal thickening of the maxillary sinus, but the outflow tract of the maxillary sinus was noted to be patent at that time. The left ethmoid, frontal, and sphenoid sinuses were normal. The right maxillary, ethmoid, frontal, and sphenoid sinuses were also unremarkable. 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 There was diagnostic uncertainty based on radiographic findings as to whether this represented a vestibular schwannoma or meningioma, and she was pending neurosurgical evaluation. At that time, the patient's symptoms overall were small and examination revealed a very small oral antral fistula of approximately 1 mm diameter. The patient was instructed in nasal precautions and any sort of activity that would create a positive or negative pressure between the nose and oral cavity with a plan to allow 4-6 weeks for healing. The patient was discharged from the outpatient clinic on 01/24/2018. Over the weekend, the patient began to have worsening pain and was placed on additional oral antibiotics by her primary care doctor including amoxicillin. She was seen by her dentist and given a prescription for Percocet, but due to the severity of her symptoms, the primary care physician recommended re- consultation with me. The patient was seen in the clinic with exam findings to follow. She complained of very severe left facial pain, very severe headache, photophobia, and nausea. Past Medical History: Depression, fibromyalgia, hypertension, migraine. Past Surgical History: section. Family History: Her father has kidney disease, cancer, hearing loss, diabetes, high blood pressure and stomach disease. Her mother has cancer, hearing problems, high blood pressure and stomach disease. Her sister has bleeding issues, diabetes, high blood pressure. Social History: The patient denies tobacco use. She is currently and accompanied by her spouse today. She drinks alcohol in moderation. Home Medications: Alprazolam, Celebrex, duloxetine, Relpax as needed, atenolol , atorvastatin, losartan, omeprazole, topiramate, and trazodone. Allergies: NO KNOWN MEDICAL ALLERGIES. Physical Examination: Vital Signs: Blood pressure 155/101, pulse 73, respiratory rate 20, height 67 inches, weight 134 pounds, calculated body mass index 36.6. General: The patient is in acute distress. She appears to be in significant discomfort. HEENT: Her face is atraumatic and symmetric. Her pupils were equal, round, and reactive. Her extraocular movements are intact. Her conjunctivae appear normal. She is wearing sunglasses within the office due to the degree of photophobia. Her hair and scalp are unremarkable. Her ear canals are clear. Her tympanic membranes are intact with no evidence of middle ear fluid. Her nostrils are patent. The left nasal cavity is unremarkable. The left nasal cavity has a small amount of purulence anteriorly. On anterior rhinoscopy, the middle meatus is obstructed with thick yellow purulent secretions representing significant worsening compared to prior exam. On examination of her oral cavity , her tongue is pink and moist. The left superior gingiva has an area of prior oral antral fistula. There is a scant area of purulence, but this area is not probed today. Her lips, palate, uvula, and oropharynx are all within normal limits. Her salivary glands are within normal limits. Neck: Supple. There are no meningeal signs. She has no cervical lymphadenopathy. Respirations: Unlabored. Skin: Warm and pink. Neurologic: She is intact. Psychiatric: From a psychiatric standpoint, she is tearful and appears to be in significant only more pain compared to prior exam. Radiology results are as detailed above in the history of present illness. No new imaging is available. Diagnoses: Oral antral fistula, acute and chronic left maxillary sinusitis. The degree of her pain is likely due in part to migraine exacerbation, but clinically her sinusitis is significantly worse despite multiple courses of antibiotics over the last 6 weeks including current antibiotics. She did take some hydrocodone tablets that she had left from her dental extraction, but this has not led to a tolerable level of pain. Plan: Due to the severity of her current symptoms and worsening clinical picture despite outpatient therapy, I recommend placement under observation overnight with a plan for surgery including left maxillary antrostomy for clearance of this infection. The patient is instructed to take orders for admission to the registration desk at the hospital. We will plan for the patient to be n.p.o. overnight with IV fluids. We will start the patient on IV Zosyn 3.375 g to run over 4 hours given every 8 hours per pharmacy recommendations, Zofran 4 mg every 6 hours as needed for pain, Phenergan 25 mg IV every 6 hours for breakthrough nausea or vomiting, morphine 2 mg IV every 2 hours as needed for pain. The plan was discussed with the patient and her spouse who agree with the plan and will speak with Surgery regarding scheduling. [place] Voice ID: [id number] MARLYS
[2018-02-01] MEDS ORDERED: MEPERIDINE HCL 50 MG/ML AMP IV ONE ×2 (18:32→18:37)
[2018-02-01] MEDS ORDERED: MEPERIDINE HCL 50 MG/ML AMP ONE (18:38)
[2018-02-01 18:53] VITALS: O2SAT 95
[2018-02-01] MEDS ORDERED: ATORVASTATIN 20 MG TAB PO SCH (21:00)
[2018-02-01] MEDS ORDERED: TRAZODONE 50 MG TABLET PO SCH (21:00)
[2018-02-01 21:19] VITALS: BP 127/69; TEMP 97.7
--- NOTE | 2018-02-02 03:20 | OP ---
Date of Procedure: 02/01/2018 Surgeon: Dolly Gaines MD Preoperative Diagnosis: Chronic and acute left maxillary sinusitis with left oral antral fistula following dental extraction with severe uncontrolled pain and infection recalcitrant to oral antibiotics with multiple courses and types. Procedure: Nasal endoscopy with left maxillary antrostomy. Surgical Findings: Copious pus with severely inflamed nasal mucosa. Indication: The patient presented to the clinic in late December with findings of a small oral antral fistula and maxillary sinusitis clinically improved after 3 courses of oral antibiotic; an initial observational course was recommended. The patient re-presented approximately 1 week later with very severe left facial pain and copious purulent nasal discharge coming from the left middle meatus. She was admitted for observation, administration of IV antibiotics, and control of pain and nausea. The following morning, reassessment confirmed persistent symptoms and the decision was made to proceed with surgery. Description Of Procedure: The patient was brought to the operating room. She was placed under general anesthesia via oral endotracheal tube. The head of bed was turned 90 degrees, and the nasal hairs were trimmed. The nasal cavity was packed with Afrin-soaked pledgets. After time for effect, these were removed and a 0-degree endoscope was used to perform a nasal endoscopy. The nasal mucosa was significantly inflamed. Afrin-soaked pledget was packed into the middle meatus. After removal, the Bonfield was used to medialize the middle turbinate and the uncinate was removed using the backbiter and 90-degree Blakesley. The maxillary antrostomy was carefully enlarged using the backbiter and 90-degree Blakesley. The nasal mucosa was severely inflamed and packing with Afrin-soaked pledgets was required intermittently to control bleeding in order to allow adequate visualization. A curved suction attached to a 20 cc syringe was used to perform irrigation of the sinus. Multiple aliquots were used until the drainage ran clear. A 70-degree endoscope was used to visualize the maxillary antrostomy which appeared to be of adequate size. Due to the degree of inflammation, it was difficult to assess if the antrostomy was connected to the natural os. The patient's nasal cavity was thoroughly suctioned and the left middle meatus was packed with a Xerogel dissolvable nasal dressing. The Xerogel was saturated with saline, and the nasal cavity was thoroughly suctioned bilaterally. The patient was then returned to care of Anesthesia for awakening and extubation in the operating room, which proceeded without difficulty. Disposition: The patient will be transported to the recovery room in stable condition, and after adequate recovery, will be transferred back to the floor. She will be reassessed there for candidacy for discharge. [place] Voice ID: [id number] Report ID: [id number] MARLYS
== END 2018-02-01 22:20 | disposition home or self-care (01) ==
LOC: 2ND 17:27
PROVIDERS: ADMIT Otolaryngology; ATTEND Otolaryngology
PROC: 099R8ZZ Drainage of Left Maxillary Sinus, Via Natural or Artificial Opening Endoscopic (ICD-10-PCS; principal; 2018-02-01 17:00)
DX: J01.00 Acute maxillary sinusitis, unspecified (principal); J32.0 Chronic maxillary sinusitis; F32.9 Major depressive disorder, single episode, unspecified; M79.7 Fibromyalgia; I10 Essential (primary) hypertension
CPT/HCPCS: 81003; 81015; 87086; 87088; 88304; G0378; J1100; J2175; J2270; J2310; J2405; J2543; J2550; J2704; J2710; J3010

== ENCOUNTER 2018-02-08 09:52 | Emergency (ER) | payer BC ==
--- OUTSIDE RECORDS SUMMARY | 2018-02-08 10:02 | XMS REPORT | Clinical Summary ---
:1965 Author Organization [facility] Address [address] [place] [address] Care Team Providers Name Role Phone Pcp, [...] Date Type Specialty Care Team Description [facility] Richard Delgadillo 07/23/2017 Outside Orders [facility], Breast microcalcifications Scheduling Richard Delgadillo (Primary Dx) after 02/07/2017 Social History Tobacco Use Types Packs/Day Years [...] RIGHT are in the results section. after 02/07/2017 Results Tissue Exam (07/26/2017 1:43 PM CDT) Case Report Surgical Pathology Report Case: [id number] [facility] Authorizing Provider:Orlando Jansen MDCollected: 07/26/[address] [place] [address] [facility] CenterReceived: 07/26/2017 [facility] Pathologist: Shirley Ortiz MD Specimen:Breast, Right, RIGHT UPPER OUTER BREAST CALCIFICATIONS DIAGNOSIS A. BREAST, RIGHT, UPPER OUTER QUADRANT CALCIFICATIONS, STEREOTACTIC CORE BIOPSY; 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 atypical hyperplasia or [facility] carcinoma is identified. CPT Code(s) A. 84058 x 1 [facility] CLINICAL HISTORY Questionable sclerosing lesion [facility] SPECIMEN SOURCE Right upper outer breast [facility] calcification. [facility] GROSS DESCRIPTION Specimen is received in [facility] formalin-filled container [facility] labeled with the patient's information and labeled "right upper outer breast calcification" and consists of four yellow-white breast core biopsies ranging in length from 0.9 to 2 cm. Specimen is entirely submitted A1. Ink code: Black. Specimen is entirely submitted A1. CG/bc MICROSCOPIC DESCRIPTION A. Performed. [facility] Specimen Tissue - Breast, Right Performing Organization Address City/State/Zipcode Phone Number [facility] [address] [place] [address] [place] Breast Specimen Radiograph Right (07/26/2017 11:21 AM CDT) Narrative Performed At [facility] #[id number] - MM, MAMMO, SPECIMEN, RADIOGRAPH, RIGHT SPECIMEN RIGHT BREAST: 07/26/2017 Four stereotactic guided biopsy specimens were imaged for the area of calcifications located in the right breast at 10 o'clock middle depth. IMPRESSION: SPECIMEN The imaged specimens includes the calcifications. Orlando Jansen M.D. pth/:07/26/2017 13:06:46 Community Music Therapist: Anastacia FRAUSTO)(Julio), [facility] [id number] Procedure Note Interface, External Ris In - 07/26/2017 3:54 PM CDT #[id number] - MM, MAMMO, SPECIMEN, RADIOGRAPH, RIGHT SPECIMEN RIGHT BREAST: 07/26/2017 Four stereotactic guided biopsy specimens were imaged for the area of calcifications located in the right breast at 10 o'clock middle depth. IMPRESSION: SPECIMEN The imaged specimens includes the calcifications. Orlando Jansen M.D. pth/:07/26/2017 13:06:46 Community Music Therapist: Anastacia SHERMAN (R)(M), [facility] [id number] Performing Organization Address City/State/Zipcode Phone Number [facility] MM, DIGITAL, UNILATERAL, CONFER JACKSON, MAMMO, RIGHT (07/26/2017 11:20 AM CDT) Narrative Performed At [facility] #[id number] - MM, DIGITAL, UNILATERAL, CONFER JACKSON, MAMMO, [...] pathology results. Orlando Jansen M.D. pth/:07/26/2017 13:06:15 Community Music Therapist: Anastacia FRAUSTO)(Julio), [facility] Mammogram BI-RADS: Post-procedure mammogram for marker placement [id number] Procedure Note Interface, External Ris In - 07/26/2017 3:54 PM CDT #[id number] - MM, DIGITAL, UNILATERAL, CONFER JACKSON, MAMMO, [...] pathology results. Orlando Jansen M.D. pth/:07/26/2017 13:06:15 Community Music Therapist: Anastacia FRAUSTO)(Julio), [facility] Mammogram BI-RADS: Post-procedure mammogram for marker placement [id number] Performing Organization Address City/State/Zipcode Phone Number [facility] MM Stereotactic breast biopsy right (07/26/2017 11:19 AM CDT) Narrative Performed At [facility] AMENDMENT: 07/29/2017 Orlando Jansen M.D. Pathology results are now available and demonstrate fibroadenoma with calcifications. This is concordant with the imaging findings. [facility] Ends #[id number] - MM, STEREOTACTIC BIOPSY, BREAST, RIGHT STEREOTACTIC [...] correct location, four specimens were obtained using [employer] EVIVA device.A clip was inserted into the [...] procedure complications. Orlando Jansen M.D. pth/:07/26/2017 13:05:30 Community Music Therapist: Anastacia Shoemaker RT(Black)(M), [facility] [id number] Procedure Note Interface, External Ris In - 07/29/2017 3:02 PM CDT Addendum Begins AMENDMENT: 07/29/2017 Orlando Jansen M.D. Pathology results are now available and demonstrate fibroadenoma with calcifications. This is concordant with the imaging findings. Addendum Ends #[id number] - MM, STEREOTACTIC BIOPSY, BREAST, RIGHT STEREOTACTIC [...] correct location, four specimens were obtained using [employer] device. A clip was inserted into the [...] procedure complications. Orlando Jansen M.D. pth/:07/26/2017 13:05:30 Community Music Therapist: Anastacia Shoemaker RT(Black)(M), [facility] [id number] Performing Organization Address City/State/Zipcode Phone Number [facility] after 02/07/2017 Insurance Payer Benefit Plan / Subscriber ID Type Phone Address Group BLUE CROSS/BLUE BCBS OS xxxxxxxxxxxx PPO [phone] [address] SHIELD POS/PPO/[place] [address]
--- OUTSIDE RECORDS SUMMARY | 2018-02-08 10:02 | XMS REPORT ---
:1965 [facility] Address [address] [place] [address] Dr. Ramirez [address] [place] [id number] Care Team Providers Name Role Phone JANETTE PENA Unavailable Unavailable Problems This patient has no known problems. Allergies, Adverse Reactions, Alerts This patient has no known allergies or adverse reactions. Medications This patient has no known medications. Results Test Description Test Time Test Comments Text Results Atomic Results Result Comments MM, STEREOTACTIC 2017-07-29 Reason for Addendum BeginsMRN#: BIOPSY, BREAST, 10:16:00 Exam:->Microcalifications [id number]: RIGHT 07/29/2017 Orlando Jansen M.D. Pathology results are now available and demonstrate fibroadenoma with calcifications.This is concordant with the imaging findings. Addendum EndsMRN#: [id number] - MM, STEREOTACTIC BIOPSY, BREAST, RIGHTSTEREOTACTIC GUIDED [...] correct location, four specimens were obtained using [employer] device. A clip was inserted into the [...] procedure complications. Orlando Jansen M.D. pth/:07/26/2017 13:05:30 Facility Maintenance Supervisor: Anastacia Shoemaker RT(Black)(M), [facility] [address] UE EXAM 2017-07-27 Surgical Pathology 16:52:00 Report Case: [id number] Authorizing Provider: Orlando Jansen MD Collected: 07/26/2017 1343 Ordering Location: [facility] Women's Center Received: 07/26/2017 1343 Pathologist: Shirley Ortiz MD Specimen: Breast, Right, RIGHT UPPER OUTER BREAST CALCIFICATIONS A. 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 20557 x 1 Questionable sclerosing lesionRight upper outer [...] Performed. MM, DIGITAL, 2017-07-26 Right breast calcifications #[id number] UNILATERAL, 13:06:00 - MM, DIGITAL, CONFER JACKSON, [...] pathology results. Orlando Jansen M.D. pth/:07/26/2017 13:06:15 Facility Maintenance Supervisor: Anastacia SHETTY (R)), [facility] Mammogram BI-RADS: Post-procedure mammogram for marker placement [id number] , MAMMO, 2017-07-26 Reason for exam:->Right #[id number] SPECIMEN, 13:06:00 breast calcifications - MM, MAMMO, SPECIMEN, RADIOGRAPH, RIGHT RADIOGRAPH, RIGHTSPECIMEN RIGHT BREAST: 07/26/2017Four stereotactic guided biopsy specimens were imaged for the area of calcifications located in the right breast at 10 o'clock middle depth. IMPRESSION: SPECIMENThe imaged specimens includes the calcifications. Orlando Jansen M.D. pth/:07/26/2017 13:06:46 Facility Maintenance Supervisor: Anastacia SHETTY (R)), [facility] [id number]
[2018-02-08] MEDS ORDERED: NA CHLORIDE 0.9% 1,000 ML ONE (10:30)
[2018-02-08] MEDS ORDERED: ONDANSETRON 4 MG/2 ML VIAL ONE ×3 (10:30→14:05)
[2018-02-08] MEDS ORDERED: MORPHINE 4 MG/ML SYR ONE ×3 (10:49→14:05)
[2018-02-08 10:59] LABS: Absolute Lymphocytes (CBC) 1.5 K/uL (0.7-4.9); Absolute Monocytes 0.7 K/uL (0.1-1.3); Absolute Neutrophil 11.4 K/uL (1.8-8.0); Basophils % 0.4 % (0-1.3); Hematocrit 42.8 % (36.0-45.0); Lymphocytes % 10.8 % (15.3-44.8); MCH 28.6 pg (27.0-35.0); MCV 86.2 fL (80-100); MPV 8.6 fL (7.6-11.3); Monocytes % 5.3 % (3.3-12.3); RBC Red Blood Cell Count 4.96 M/uL (3.86-4.86)
[2018-02-08 11:11] LABS: Albumin 3.7 g/dL (3.4-5.0); Bilirubin Direct 0.1 mg/dL (0-0.2); Bilirubin Total 0.4 mg/dL (0.2-1.0); Protein, Total 8.2 g/dL (6.4-8.2)
--- NOTE | 2018-02-08 11:52 | RAD REPORT ---
EXAM DESCRIPTION: CTAbdomen Pelvis W Contrast - 02/08/2018 11:41 am CLINICAL HISTORY: Abdominal pain. IV contrast only;Abd pain COMPARISON: CT ABD PELVIS W CONTRAST dated 10/10/2012 TECHNIQUE: Biphasic CT imaging of the abdomen and pelvis was performed with 100 ml non-ionic IV cont rast. All CT scans are performed using dose optimization technique as appropriate and may include automated exposure control or mA/KV adjustment according to patient size. FINDINGS: The lung bases are clear. The liver contains a 16 mm cyst in the right lobe anteriorly. The spleen, pancreas, adrenal glands ar e within normal limits. Numerous cysts are present in the left kidney. The right kidney also contains a caliceal diverticulum versus cortical cyst with a small internal calcification posterior cortex me asuring 12 mm. No bowel obstruction, free air, free fluid or abscess. The appendix is normal. Prominent fecal reten tion in the colon. No evidence of significant lymphadenopathy. No suspicious bony findings. IMPRESSION: No acute intra-abdominal or pelvic finding. Significant fecal retention in the colon.
[2018-02-08] MEDS ORDERED: BISACODYL 10 MG RECTAL SUPP ONE (12:10)
--- NOTE | 2018-02-08 13:01 | RAD REPORT ---
EXAM DESCRIPTION: CT - Head Brain Wo Cont - 02/08/2018 12:49 pm CLINICAL HISTORY: PAIN COMPARISON: Sinus Wo Cont dated 01/17/2018; Head Brain Wo Cont dated 01/17/2018; Brain W/Wo Cont lane ed 01/18/2018 TECHNIQUE: All CT scans are performed using dose optimization technique as appropriate and may inclu de automated exposure control or mA/KV adjustment according to patient size. FINDINGS: There is residual IV contrast present in the vascular system from recent CT abdomen. Enhancing 25 x 24 mm left CP angle mass is noted most likely representing acoustic schwannoma or meni ngioma. Mild mass effect on the brainstem and fourth ventricle is seen. Please reference 01/18/2018 d edicated MR brain for further details. No evidence acute intracranial bleed, hydrocephalus or midline shift. The calvarium is intact. Modera te left maxillary and anterior ethmoid air cell sinusitis. IMPRESSION: Enhancing left CP angle mass as detailed with moderate mass effect on the brainstem. No acute intracranial abnormality detected. Moderate left-sided paranasal sinus disease.
--- NOTE | 2018-02-08 13:42 | EDPHYS ---
Physician Documentation [facility] Name: Prisca Hernandez Age: 52 yrs Sex: Female : 1965 Arrival Date: 02/08/2018 Time: 09:55 Bed 13 Private MD: Oliva Long K ED Physician Shant Knapp HPI: 02/08 14:26 This 52 yrs old Female presents to ER via Wheelchair with complaints of kb Nausea/Vomiting, Constipation. 14:26 The patient presents to the emergency department with nausea, vomiting, abdominal pain. kb Onset: The symptoms/episode began/occurred this morning. Possible causes: post-op pain. The symptoms are aggravated by nothing. The symptoms are alleviated by nothing. Associated signs and symptoms: Pertinent positives: abdominal pain, constipation, nausea, vomiting. Severity of symptoms: At their worst the symptoms were moderate in the emergency department the symptoms are unchanged. The patient has not experienced similar symptoms in the past. The patient has been recently seen by a physician:. Pt had sinus surgery on Wednesday and gamma knife procedure done on Wednesday. Comes in today for nausea, vomiting, constipation and head/sinus pain. Has been taking norco at home for pain. 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 - Social history:: Smoking status: Patient/guardian denies using tobacco. - Ebola Screening: : Patient denies travel to an Ebola-affected area in the 21 days before illness onset. ROS: 14:25 Constitutional: Negative for fever, chills, and weight loss, Neck: Negative for injury, kb pain, and swelling, Cardiovascular: Negative for chest pain, palpitations, and edema, Respiratory: Negative for shortness of breath, cough, wheezing, and pleuritic chest pain, Back: Negative for injury and pain, MS/Extremity: Negative for injury and deformity, Skin: Negative for injury, rash, and discoloration, Neuro: Negative for headache, weakness, numbness, tingling, and seizure. 14:25 ENT: Positive for sinus pain. 14:25 Abdomen/GI: Positive for abdominal pain, nausea and vomiting, constipation. Exam: 14:22 Constitutional: This is a well developed, well nourished patient who is awake, alert, kb and in no acute distress. Chest/axilla: Normal chest wall appearance and motion. Nontender with no deformity. No lesions are appreciated. Cardiovascular: Regular rate and rhythm with a normal S1 and S2. No gallops, murmurs, or rubs. Normal PMI, no JVD. No pulse deficits. Respiratory: Lungs have equal breath sounds bilaterally, clear to auscultation and percussion. No rales, rhonchi or wheezes noted. No increased work of breathing, no retractions or nasal flaring. Skin: Warm, dry with normal turgor. Normal color with no rashes, no lesions, and no evidence of cellulitis. MS/ Extremity: Pulses equal, no cyanosis. Neurovascular intact. Full, normal range of motion. Neuro: Awake and alert, GCS 15, oriented to person, place, time, and situation. Cranial nerves II-XII grossly intact. Motor strength 5/5 in all extremities. Sensory grossly intact. Cerebellar exam normal. Normal gait. 14:22 Head/face: Sinus tenderness, that is moderate, is located over the left maxillary sinus. 14:22 Abdomen/GI: Inspection: abdomen appears normal, Bowel sounds: normal, in all quadrants, Palpation: soft, in all quadrants, mild abdominal tenderness, in all quadrants. Vital Signs: 10:11 BP 136 / 99; Pulse 101; Resp 24; Temp 98.9(TE); Pulse Ox 99% on R/A; Weight 99.79 kg; ph Height 5 ft. 7 in. (170.18 cm); Pain 8/10; 11:00 BP 133 / 81; Pulse 72; Resp 17; Pulse Ox 96% on R/A; tw2 12:00 BP 140 / 80; Pulse 66; Resp 17; Pulse Ox 96% on R/A; Pain 6/10; tw2 13:00 BP 129 / 81; Pulse 71; Resp 17; Pulse Ox 96% on R/A; tw2 13:44 BP 135 / 79; Pulse 77; Resp 17; Pulse Ox 98% on R/A; tw2 10:11 Body Mass Index 34.46 (99.79 kg, 170.18 cm) ph MDM: 10:15 Patient medically screened. kb 13:10 Data reviewed: vital signs, nurses notes. Data interpreted: Pulse oximetry: on room air kb is 96 %. Interpretation: normal. ED course: Discussed CT findings with Dr Penn. Findings similar to MRI from last month. . 13:29 Counseling: I had a detailed discussion with the patient and/or guardian regarding: the kb historical points, exam findings, and any diagnostic results supporting the discharge/admit diagnosis, lab results, radiology results, the need for outpatient follow up, an ENT specialist, to return to the emergency department if symptoms worsen or persist or if there are any questions or concerns that arise at home. Physician consultation: Dolly Gaines MD was contacted at 13:29, regarding consult, patient's condition, and will see patient in office, next week, Pt is currently on Clindamycin, will educate pt on continuing antibiotic and to take prescribed pain medication as needed. 02/08 10:18 Order name: Basic Metabolic Panel; Complete Time: 11:17 kb 02/08 10:18 Order name: CBC with Diff; Complete Time: 11:17 kb 02/08 10:18 Order name: Hepatic Function; Complete Time: 11:17 kb 02/08 10:18 Order name: Lipase; Complete Time: 11:17 kb 02/08 11:17 Order name: CT Abd/Pelvis - W/Contrast; Complete Time: 11:55 kb 02/08 12:27 Order name: CT Head Brain wo Cont; Complete Time: 13:08 kb 02/08 10:18 Order name: IV Saline Lock; Complete Time: 10:27 kb 02/08 10:18 Order name: Labs collected and sent; Complete Time: 10:30 kb Administered Medications: 10:26 Drug: Zofran 4 mg Route: IVP; Site: right antecubital; ss 11:00 Follow up: Response: No adverse reaction; Nausea is decreased tw2 10:27 Drug: NS 0.9% 1000 ml Route: IV; Rate: 1000 ml; Site: right antecubital; ss 12:20 Follow up: Response: No adverse reaction; IV Status: Completed infusion; IV Intake: tw2 1000ml 10:42 Drug: morphine 4 mg Route: IVP; Site: right antecubital; tw2 12:21 Follow up: Response: No adverse reaction tw2 12:11 Drug: Dulcolax Suppository 10 mg Route: GA; tw2 13:55 Follow up: Response: No adverse reaction tw2 12:18 Drug: Zofran 4 mg Route: IVP; Site: right antecubital; tw2 13:20 Follow up: Response: No adverse reaction; Nausea is decreased tw2 12:27 Drug: morphine 4 mg Route: IVP; Site: right antecubital; tw2 13:00 Follow up: Response: No adverse reaction; Pain is decreased tw2 13:58 Drug: Zofran 4 mg Route: IVP; Site: right antecubital; tw2 14:07 Follow up: Response: No adverse reaction; Nausea is decreased tw2 14:00 Drug: morphine 4 mg Route: IVP; Site: right antecubital; tw2 14:07 Follow up: Response: No adverse reaction; Pain is decreased tw2 Disposition: 17:03 Co-signature as Attending Physician, Shant Knapp MD available for consultation at ps1 all times . Disposition: 02/08/18 13:42 Discharged to Home. Impression: Constipation, Vomiting, Post-op Pain. - Condition is Stable. - Discharge Instructions: Constipation, Adult, Fwco-wz-Yaox, Nausea and Vomiting, Adult, Ckru-jk-Muco. - Prescriptions for Colace 100 mg Oral Tablet - take 1 tablet by ORAL route every 12 hours; 14 tablet. - Medication Reconciliation Form, Thank You Letter, Antibiotic Education, Prescription Opioid Use form. - Follow up: Emergency Department; When: As needed; Reason: Worsening of condition. Follow up: Oliva Long MD; When: 2 - 3 days; Reason: Recheck today's complaints, Continuance of care, Re-evaluation by your physician. Signatures: Dispatcher [employer] Claribel Plascencia, Yaz Samson RN RN Dagmar Serna RN RN Rhoda Abarca RN RN tw2 Shant Knapp MD MD ps1 Corrections: (The following items were deleted from the chart) 14:08 13:42 02/08/2018 13:42 Discharged to Home. Impression: Constipation; Vomiting; Post-op tw2 Pain. Condition is Stable. Forms are Medication Reconciliation Form, Thank You Letter, Antibiotic Education, Prescription Opioid Use. Follow up: Emergency Department; When: As needed; Reason: Worsening of condition. Follow up: Oliva Long; When: 2 - 3 days; Reason: Recheck today's complaints, Continuance of care, Re-evaluation by your physician. kb
--- NOTE | 2018-02-08 13:42 | ER ---
Nurse's Notes [facility] Name: Prisca Hernandez Age: 52 yrs Sex: Female : 1965 Arrival Date: 02/08/2018 Time: 09:55 Bed 13 Private MD: Oliva Long K Diagnosis: Constipation;Vomiting;Post-op Pain Presentation: 02/08 10:06 Presenting complaint: states: Pt had sinus sx on last Wednesday w/ Dr Looney ph she started vomiting on Wednesday and they gave us some suppositories but they aren't helping." Pt reports diffuse abdominal pain, N/V and constipation, also reports sinus pain, denies fever. Transition of care: patient was not received from another setting of care. Onset of symptoms was February 08, 2018. Risk Assessment: Do you want to hurt yourself or someone else? Patient reports no desire to harm self or others. Initial Sepsis Screen: Does the patient meet any 2 criteria? No. Patient's initial sepsis screen is negative. Does the patient have a suspected source of infection? No. Patient's initial sepsis screen is negative. Care prior to arrival: None. 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 - Social history:: Smoking status: Patient/guardian denies using tobacco. - Ebola Screening: : Patient denies travel to an Ebola-affected area in the 21 days before illness onset. Screenin:12 Abuse screen: Denies threats or abuse. Nutritional screening: No deficits noted. tw2 Tuberculosis screening: No symptoms or risk factors identified. Fall Risk None identified. Assessment: 10:10 General: Appears uncomfortable, obese, Behavior is calm, cooperative, appropriate for tw2 age. Pain: Complains of pain in face. Neuro: Level of Consciousness is awake, alert, obeys commands, Oriented to person, place, time, situation. Cardiovascular: Heart tones S1 S2 Patient's skin is warm and dry. Respiratory: Airway is patent Respiratory effort is even, unlabored, Respiratory pattern is regular, symmetrical, Breath sounds are clear bilaterally. GI: Abdomen is round non-distended, Bowel sounds present X 4 quads. GI: Reports constipation, nausea, vomiting, pt is actively vomiting at this time. :. EENT: Reports pain in right cheek and left cheek. Derm: No signs and/or symptoms reported regarding the dermatologic system. Musculoskeletal: Range of motion: intact in all extremities. 12:11 Reassessment: Patient and/or family updated on plan of care and expected duration. Pain tw2 level reassessed. Patient is alert, oriented x 3, equal unlabored respirations, skin warm/dry/pink. pt reports nauseousness at this time, provider notified, medicated as ordered. 12:15 Reassessment: pts reports nauseousness and pain returning, provider notified, medicated tw2 as ordered. 13:20 Reassessment: Patient appears in no apparent distress at this time. Patient and/or tw2 family updated on plan of care and expected duration. Pain level reassessed. Patient is alert, oriented x 3, equal unlabored respirations, skin warm/dry/pink. 13:53 Reassessment: pt c/o pain and nausea, provider notified as ordered. tw2 Vital Signs: 10:11 BP 136 / 99; Pulse 101; Resp 24; Temp 98.9(TE); Pulse Ox 99% on R/A; Weight 99.79 kg; ph Height 5 ft. 7 in. (170.18 cm); Pain 8/10; 11:00 BP 133 / 81; Pulse 72; Resp 17; Pulse Ox 96% on R/A; tw2 12:00 BP 140 / 80; Pulse 66; Resp 17; Pulse Ox 96% on R/A; Pain 6/10; tw2 13:00 BP 129 / 81; Pulse 71; Resp 17; Pulse Ox 96% on R/A; tw2 13:44 BP 135 / 79; Pulse 77; Resp 17; Pulse Ox 98% on R/A; tw2 10:11 Body Mass Index 34.46 (99.79 kg, 170.18 cm) ph ED Course: 09:55 Patient arrived in ED. sb2 09:55 Oliva Long MD is Private Physician. sb2 10:09 Triage completed. ph 10:11 Arm band placed on Patient placed in an exam room. ph 10:12 Rhoda Abarca RN is Primary Nurse. tw2 10:12 Bed in low position. Call light in reach. Adult w/ patient. Pulse ox on. NIBP on. tw2 10:14 [facility] kb 10:14 Shant Knapp MD is Attending Physician. kb 10:22 Inserted saline lock: 22 gauge in right antecubital area, using aseptic technique. tw2 Blood collected. 11:[address] via wheelchair. nj 11:41 CT completed. Patient tolerated procedure well. Patient moved back from CT. nj 11:42 CT Abd/Pelvis - W/Contrast In Process Unspecified. EDMS 12:43 CT completed. Patient tolerated procedure well. Patient moved to CT. Patient moved back wi from CT. 12:49 CT Head Brain wo Cont In Process Unspecified. EDMS 13:41 Oliva Long MD is Referral Physician. kb 14:08 No provider procedures requiring assistance completed. IV discontinued, intact, tw2 bleeding controlled, No redness/swelling at site. Pressure dressing applied. Administered Medications: 10:26 Drug: Zofran 4 mg Route: IVP; Site: right antecubital; ss 11:00 Follow up: Response: No adverse reaction; Nausea is decreased tw2 10:27 Drug: NS 0.9% 1000 ml Route: IV; Rate: 1000 ml; Site: right antecubital; ss 12:20 Follow up: Response: No adverse reaction; IV Status: Completed infusion; IV Intake: tw2 1000ml 10:42 Drug: morphine 4 mg Route: IVP; Site: right antecubital; tw2 12:21 Follow up: Response: No adverse reaction tw2 12:11 Drug: Dulcolax Suppository 10 mg Route: [place]; tw2 13:55 Follow up: Response: No adverse reaction tw2 12:18 Drug: Zofran 4 mg Route: IVP; Site: right antecubital; tw2 13:20 Follow up: Response: No adverse reaction; Nausea is decreased tw2 12:27 Drug: morphine 4 mg Route: IVP; Site: right antecubital; tw2 13:00 Follow up: Response: No adverse reaction; Pain is decreased tw2 13:58 Drug: Zofran 4 mg Route: IVP; Site: right antecubital; tw2 14:07 Follow up: Response: No adverse reaction; Nausea is decreased tw2 14:00 Drug: morphine 4 mg Route: IVP; Site: right antecubital; tw2 14:07 Follow up: Response: No adverse reaction; Pain is decreased tw2 Intake: 12:20 IV: 1000ml; Total: 1000ml. tw2 Outcome: 13:42 Discharge ordered by . kb 14:08 Discharged to home via wheelchair, with family. tw2 14:08 Condition: stable 14:08 Discharge instructions given to patient, family, Instructed on discharge instructions, follow up and referral plans. medication usage, Demonstrated understanding of instructions, follow-up care, medications, Prescriptions given X 1. 14:08 Patient left the ED. tw2 Signatures: Dispatcher [employer] EDMS Claribel Cosme, HAND FORMER HELPER-C HAND FORMER HELPER-Yaz Salcedo RN RN Dagmar Zarate RN RN ph Wise, Tara, RN RN tw2 Zi Cox Sheri sb2 Corrections: (The following items were deleted from the chart) 13:54 13:45 Reassessment: Patient appears in no apparent distress at this time. Patient tw2 and/or family updated on plan of care and expected duration. Pain level reassessed. Patient is alert, oriented x 3, equal unlabored respirations, skin warm/dry/pink. Patient states feeling better. tw2
[2018-02-08 14:27] VITALS: TEMP 98.9
[2018-02-08 14:41] VITALS: BP 135/79; O2SAT 98
== END 2018-02-08 14:08 | disposition home or self-care (01) ==
LOC: ER 09:52
DX: K59.00 Constipation, unspecified (principal); G89.18 Other acute postprocedural pain; I10 Essential (primary) hypertension
CPT/HCPCS: 36415; 70450; 74177; 80048; 80076; 83690; 85025; 96361; 96374; 96375; 99284; J2405; J7030; Q9967

== ENCOUNTER 2018-04-07 14:33 | Emergency (ER) | payer BC ==
--- OUTSIDE RECORDS SUMMARY | 2018-04-07 14:37 | XMS REPORT | Continuity of Care Document ---
:1965 Author Organization Interface Problems Problem Status Onset Classification Date Comments Source Date Reported GAMMA KNIFE F/U Active [facility] VESTIBULAR Active [facility] SCHOW[facility] 8 Medical D32.0 Center Medications Medication Details Route Status Patient Ordering Order Source Instructions Provider Date Allergies, Adverse Reactions, Alerts Substance Category Reaction Severity Reaction Status Date Comments Source type Reported Immunizations Immunization Date Given Site Status Last Updated Comments Source Results Order Results Value Reference Date Interpretation Comments Source Name Range Brain w Brain w EXAM: CT BRAIN WITH CONTRAST 02/04 - [facility] contrast contrast - Medical CT CT Center DATE: 02/04/2018 8:09 AM REHABILITATION ASSISTANT Read by: Dominic Arango MD Dictated Date/time: 02/04/18 10:43 Electronically Signed by: Dominic Arango MD 02/04/18 10:56 FINAL REPORT INDICATION: Hypoglossal schwannoma - Gamma Knife COMPARISON: MR, same day TECHNIQUE: Thin section axial images of the brain were obtained using a conventional ct scanner. Reformatted images in the sagittal and coronal plane were included. IV contrast: 185 mL Visipaque 320. DOSE: Total DLP 2380 mGy*cm FINDINGS: Schwannoma of the hypoglossal nerve on the right is better seen on the MR study. Non-contrast images of the head demonstrate no edema, hemorrhage, intra- axial lesion or other acute intracranial abnormality. The brain has normal attenuation and fofana-white matter distinction. The ventricles are normal. The basal cisterns and sulci are normal in size. There is no chronic abnormality. A fluid attenuation lesion is detected in the right nasal cavity. This likely represents an inflammatory polyp. The paranasal sinuses, orbits and mastoids are otherwise unremarkable. Incidental imaging of the skull and skull base is also unremarkable. IMPRESSION: Images are adequate for surgical planning. Brain w Brain w EXAM: MRI BRAIN WITH CONTRAST 02/04 - [facility] contrast contrast - Medical MRI MRI This report was dictated by a Printing Grey Cloth Tender/Fellow. I have personally reviewed the images as Center well as the Resident's interpretation and agree with the findings. DATE: 02/04/2018 at 7:56 AM Read by: Bubba Hanson Resident: Bubba Hanson Dictated Date/time: 02/04/18 09:49 Electronically Signed by: Essence Avery 02/07/18 08:37 FINAL REPORT INDICATION: 52-year-old female patient with history of a left vestibular schwannoma, scheduled for gamma knife treatment. COMPARISON: Concurrent CT of the head and neck with contrast. TECHNIQUE: Axial postcontrast 3-D T2-weighted, and 3-D T1-weighted imaging was acquired through the brain. Stereotactic frame in place. IV contrast: 10 mL of MultiHance FINDINGS: Limited sequence was acquired for treatment planning. A well-defined, heterogeneously enhancing extra-axial mass is seen centered at the left perimedullary cistern, extending from the lateral aspect of the medulla oblongata into the pars nervosa of the lef t jugular foramen. The lesion remodels the jugular foramen without associated bone erosion. Note is made that despite the vivid enhancement of the lesion, no definite flow voids are seen. Stenosis of the junction between the sigmoid sinus and the left internal jugular vein. The internal auditory canals, and the visualized inner ear structures are normal bilaterally. The imaged intracranial components are normal. Diffuse mucosal thickening of the paranasal cavities, with a nasal polyp occupying the left nasal cavity. No signs of tongue denervation are seen. IMPRESSION: 1. Stealth protocol adequate for treatment planning. 2. 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 Vital Signs Vital Sign Value Date Comments Source Encounters Location Location Encounter Encounter Reason Attending ADM DC Status Source Details Type Number For Provider Date Date Visit Outpatient [id number] JOE DUDLEY 01/25 [facility] [place] Outpatient [id number] ERIBERTO 02/02 [facility] [place] Out[place] [id number] ERIBERTO 02/04 [facility] [place] Outpatient [id number] ERIBERTO 03/02 [facility] [place] Outpatient [id number] MANOJ 03/18 [facility] [place] Procedures Procedure Code Date Perfomer Comments Source
--- OUTSIDE RECORDS SUMMARY | 2018-04-07 14:37 | XMS REPORT | Clinical Summary ---
:1965 Author Organization [facility] Address [address] [place] [address] Care Team Providers Name Role Phone Pcp, [...] Specialty [facility] Richard Delgadillo 07/23/2017 Outside Orders [facility], Breast microcalcifications Scheduling Richard Delgadillo (Primary Dx) after 04/06/2017 Social History Tobacco Use Types Packs/Day Years [...] RIGHT are in the results section. after 04/06/2017 Results Tissue Exam (07/26/2017 1:43 PM CDT) Case Report Surgical Pathology Report Case: [id number] [facility] Authorizing Provider:Orlando Jansen MDCollected: 07/26/2017 [facility] CenterReceived: 07/26/2017 [facility] Pathologist: Shirley Ortiz MD Specimen:Breast, Right, RIGHT UPPER OUTER BREAST CALCIFICATIONS DIAGNOSIS A. 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 CPT Code(s) A. 66591 x 1 [facility] CLINICAL HISTORY Questionable sclerosing lesion [facility] SPECIMEN SOURCE Right upper outer breast [facility] calcification. [facility] GROSS DESCRIPTION Specimen is received in [facility] formalin-filled container [facility] labeled with the patient's information and labeled "right upper outer breast calcification" and consists of four yellow-white breast core biopsies ranging in length from 0.9 to 2 cm. Specimen is entirely submitted A1. Ink code: Black. Specimen is entirely submitted A1. CG/bc MICROSCOPIC DESCRIPTION A. Performed. [facility] Specimen Tissue - Breast, Right Performing Organization Address City/State/Zipcode Phone Number [facility] [address] [place] [address] [place] MM Breast Specimen Radiograph Right (07/26/2017 11:21 AM CDT) Narrative Performed At [facility] #[id number] - MM, MAMMO, SPECIMEN, RADIOGRAPH, RIGHT SPECIMEN RIGHT BREAST: 07/26/2017 Four stereotactic guided biopsy specimens were imaged for the area of calcifications located in the right breast at 10 o'clock middle depth. IMPRESSION: SPECIMEN The imaged specimens includes the calcifications. Orlando Jansen M.D. pth/:07/26/2017 13:06:46 It Security Project Manager: Anastacia FRAUSTO)(Julio), [facility] [id number] Procedure Note Interface, External Ris In - 07/26/2017 3:54 PM CDT #[id number] - MM, MAMMO, SPECIMEN, RADIOGRAPH, RIGHT SPECIMEN RIGHT BREAST: 07/26/2017 Four stereotactic guided biopsy specimens were imaged for the area of calcifications located in the right breast at 10 o'clock middle depth. IMPRESSION: SPECIMEN The imaged specimens includes the calcifications. Orlando Jansen M.D. pth/:07/26/2017 13:06:46 It Security Project Manager: Anastacia SHERMAN (R)(M), [facility] [id number] Performing Organization Address City/State/Zipcode Phone Number [facility] MM, DIGITAL, UNILATERAL, CONFER JACKSON, MAMMO, RIGHT (07/26/2017 11:20 AM CDT) Narrative Performed At [facility] #[id number] - MM, DIGITAL, UNILATERAL, CONFER JACKSON, MAMMO, [...] pathology results. Orlando Jansen M.D. pth/:07/26/2017 13:06:15 It Security Project Manager: Anastacia FRAUSTO)(Julio), [facility] Mammogram BI-RADS: Post-procedure mammogram for marker placement [id number] Procedure Note Interface, External Ris In - 07/26/2017 3:54 PM CDT #[id number] - MM, DIGITAL, UNILATERAL, CONFER JACKSON, MAMMO, [...] pathology results. Orlando Jansen M.D. pth/:07/26/2017 13:06:15 It Security Project Manager: Anastacia FRAUSTO)(Julio), [facility] Mammogram BI-RADS: Post-procedure mammogram for marker placement [id number] Performing Organization Address City/State/Zipcode Phone Number [facility] MM Stereotactic breast biopsy right (07/26/2017 11:19 AM CDT) Narrative Performed At Addend[facility] Begins [facility] AMENDMENT: 07/29/2017 Orlando Jansen M.D. Pathology results are now available and demonstrate fibroadenoma with calcifications. This is concordant with the imaging findings. Addendum Ends #[id number] - MM, STEREOTACTIC BIOPSY, BREAST, RIGHT STEREOTACTIC [...] correct location, four specimens were obtained using [employer] EVIVA device.A clip was inserted into the [...] procedure complications. Orlando Jansen M.D. pth/:07/26/2017 13:05:30 It Security Project Manager: Anastacia Shoemaker RT(Black)(M), [facility] [id number] Procedure Note Interface, External Ris In - 07/29/2017 3:02 PM CDT Addendum Begins AMENDMENT: 07/29/2017 Orlando Jansen M.D. Pathology results are now available and demonstrate fibroadenoma with calcifications. This is concordant with the imaging findings. Addendum Ends #[id number] - MM, STEREOTACTIC BIOPSY, BREAST, RIGHT STEREOTACTIC [...] correct location, four specimens were obtained using [employer] device. A clip was inserted into the [...] procedure complications. Orlando Jansen M.D. pth/:07/26/2017 13:05:30 It Security Project Manager: Anastacia Shoemaker RT(Black)(M), [facility] [address] Performing Organization Address City/State/Zipcode Phone Number [facility] after 04/06/2017 Insurance Payer Benefit Plan / Subscriber ID Type Phone Address Group BLUE CROSS/BLUE BCBS OS xxxxxxxxxxxx PPO [phone] [address] [place]ELD [place]/PP[place] [address]
--- OUTSIDE RECORDS SUMMARY | 2018-04-07 14:37 | XMS REPORT ---
:1965 Author [facility] Address [address] [place] [address] Dr. Ramirez [address] [place] [address] Care Team Providers Name Role Phone JANETTE PENA Unavailable Unavailable Problems This patient has no known problems. Allergies, Adverse Reactions, Alerts This patient has no known allergies or adverse reactions. Medications This patient has no known medications. Results Test Description Test Time Test Comments Text Results Atomic Results Result Comments MM, STEREOTACTIC 2017-07-29 Reason for Addendum BeginsMRN#: BIOPSY, BREAST, 10:16:00 Exam:->Microcalifications [id number]: RIGHT 07/29/2017 Orlando Jansen M.D. Pathology results are now available and demonstrate fibroadenoma with calcifications.This is concordant with the imaging findings. Addendum EndsMRN#: [id number] - MM, STEREOTACTIC BIOPSY, BREAST, RIGHTSTEREOTACTIC GUIDED [...] correct location, four specimens were obtained using [employer] device. A clip was inserted into the [...] procedure complications. Orlando Jansen M.D. pth/:07/26/2017 13:05:30 Milker Machine: Anastacia Shoemaker RT(Black)(M), [facility] [address] UE EXAM 2017-07-27 Surgical Pathology 16:52:00 Report Case: [id number] Authorizing Provider: Orlando Jansen MD Collected: 07/26/2017 1343 Ordering Location: [facility] Women[facility] Received: 07/26/2017 1343 Pathologist: Shirley Ortiz MD Specimen: Breast, Right, RIGHT UPPER OUTER BREAST CALCIFICATIONS A. 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 99000 x 1 Questionable sclerosing lesionRight upper outer [...] Performed. MM, DIGITAL, 2017-07-26 Right breast calcifications #[id number] UNILATERAL, 13:06:00 - MM, DIGITAL, CONFER JACKSON, [...] pathology results. Orlando Jansen M.D. pth/:07/26/2017 13:06:15 Milker Machine: Anastacia SHETTY (R)), [facility] Mammogram BI-RADS: Post-procedure mammogram for marker placement [id number] , MAMMO, 2017-07-26 Reason for exam:->Right #[id number] SPECIMEN, 13:06:00 breast calcifications - MM, MAMMO, SPECIMEN, RADIOGRAPH, RIGHT RADIOGRAPH, RIGHTSPECIMEN RIGHT BREAST: 07/26/2017Four stereotactic guided biopsy specimens were imaged for the area of calcifications located in the right breast at 10 o'clock middle depth. IMPRESSION: SPECIMENThe imaged specimens includes the calcifications. Orlando Jansen M.D. pth/:07/26/2017 13:06:46 Milker Machine: Anastacia SHETTY (R)), [facility] [id number]
[2018-04-07] MEDS ORDERED: NA CHLORIDE 0.9% 500 ML ONE (15:20)
[2018-04-07] MEDS ORDERED: ONDANSETRON 4 MG/2 ML VIAL ONE ×2 (15:20→18:52)
--- NOTE | 2018-04-07 15:59 | RAD REPORT ---
EXAM DESCRIPTION: CT - Head Brain Wo Cont - 04/07/2018 3:45 pm CLINICAL HISTORY: Headache, history treatment for neuroblastoma COMPARISON: CT head January 2018 TECHNIQUE: Axial 5 mm thick images of the head were obtained without IV contrast. All CT scans are performed using dose optimization technique as appropriate and may include automated exposure control or mA/KV adjustment according to patient size. FINDINGS: No intracranial hemorrhage. No cerebral edema, mass effect or midline shift. No acute infa rction changes seen. Ventricles are normal. Prior imaging demonstrated a 2.5 centimeter mass at the l eft cerebellopontine angle. That mass has substantially reduced in size. Margins are not well-defined . CT imaging has inherent limitation in the posterior fossa. Mastoid air cells and visualized portions of the paranasal sinuses are clear. No acute bony findings. IMPRESSION: Substantial reduction in the size of the left cerebellopontine angle mass since February 08 imaging. Remnant mass, if any, is not well defined. CT imaging is inherently limited in the posterior fossa. M R imaging would be more accurate for assessment of remnant mass. No cerebral edema or acute intracranial finding.
--- NOTE | 2018-04-07 16:02 | RAD REPORT ---
EXAM DESCRIPTION: RAD - Chest Single View - 04/07/2018 3:24 pm CLINICAL HISTORY: Cough COMPARISON: January 17, 2018 TECHNIQUE: AP portable chest image was obtained 1522 hours . FINDINGS: Lungs are clear. Heart and vasculature are normal. No measurable pleural effusion and no p neumothorax. No acute bony abnormality seen. No acute aortic findings suspected. IMPRESSION: No acute cardiopulmonary process. No significant change from comparison.
[2018-04-07 16:13] LABS: Protime INR 1.03
[2018-04-07 16:18] LABS: Absolute Lymphocytes (CBC) 1.3 K/uL (0.7-4.9); Absolute Monocytes 0.5 K/uL (0.1-1.3); Absolute Neutrophil 3.2 K/uL (1.8-8.0); Basophils % 0.8 % (0-1.3); Eosinophils % 1.6 % (0-4.4); Hematocrit 38.9 % (36.0-45.0); Lymphocytes % 25.8 % (15.3-44.8); MPV 8.8 fL (7.6-11.3); Monocytes % 10.2 % (3.3-12.3); RBC Red Blood Cell Count 4.45 M/uL (3.86-4.86)
[2018-04-07] MEDS ORDERED: NA CHLORIDE 0.9% 1,000 ML ONE (16:24)
[2018-04-07] MEDS ORDERED: NA CHLORIDE 0.9% 50 ML IV ONE (16:24)
[2018-04-07] MEDS ORDERED: FOLIC ACID 5 MG/ML VIAL ONE (16:24)
[2018-04-07 16:31] LABS: ALT/SGPT 22 U/L (12-78); AST/SGOT 16 U/L (15-37); Albumin 3.6 g/dL (3.4-5.0); Alkaline Phosphatase 72 U/L (45-117); BUN Blood Urea Nitrogen 10 mg/dL (7-18); Bicarbonate 27 mmol/L (21-32); Bilirubin Direct < 0.1 mg/dL (0-0.2); Bilirubin Total 0.4 mg/dL (0.2-1.0); Glucose Level 94 mg/dL (74-106); Magnesium 2.2 mg/dL (1.8-2.4); NT PRO-BNP 82 pg/mL (<125); Potassium 3.7 mmol/L (3.5-5.1); Protein, Total 7.3 g/dL (6.4-8.2); Sodium Level 141 mmol/L (136-145); Troponin (Emerg Dept Use Only) < 0.02 ng/mL (0.0-0.045)
[2018-04-07] MEDS ORDERED: ACETAMINOPHEN 500 MG TAB ONE (16:51)
--- NOTE | 2018-04-07 18:03 | RAD REPORT ---
EXAM DESCRIPTION: MRI - Brain Wo Cont - 04/07/2018 5:47 pm CLINICAL HISTORY: Headache, double vision left ear ringing, history of left acoustic neuroma with ra diation treatment COMPARISON: CT head April 07, 2018, MRI December 2017 TECHNIQUE: Sagittal T1-weighted images were obtained along with axial PD, heavily T2-weighted and T2 -FLAIR images. Axial DWI and ADC mapping sequences were also obtained along with coronal heavily T2-w eighted images. FINDINGS: The patient has previously diagnosed left CP angle mass, by history acoustic neuroma, this far better visualized on the MRI study than on the earlier CT study. On CT imaging the mass appears smaller; however, the mass is too isodense to the cerebellum for accurate characterization by CT. The mass which extends into and enlarges the left internal auditory canal measures 3.2 cm AP x 2.4 cm TR x 2.3 cm CC. This is not clearly different than the December 2017 imaging. The degree of mass effect on the brainstem, left cerebellar hemisphere and fourth ventricle has not changed. No new surrounding edema identified. No infarction changes. No acute intracranial finding otherwise noted. No extra-axial fluid collection s. Tsai-matter/white matter junction is preserved. Signal voids are seen as a normal finding in the m ajor intracranial vessels. Mastoid air cells and paranasal sinuses are clear. IMPRESSION: The left cerebellopontine angle mass -acoustic neuroma by provided history - has not harrison nged in size from December [address] imaging showed evidence for reduction in size; however, inherent CT limitation in the post erior fossa and the isodensity of the mass to the cerebellum limited accuracy of measurement. No infarction, hemorrhage or new mass lesion. Mass effect of the left CP angle mass on the brainstem, fourth ventricle and cerebellum has not changed.
--- NOTE | 2018-04-07 18:14 | ER ---
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 Transition of care: patient was not received from another setting of care. Onset of symptoms was April 07, 2018. Risk Assessment: Do you want to hurt yourself or someone else? Patient reports no desire to harm self or others. Initial Sepsis Screen: Does the patient meet any 2 criteria? No. Patient's initial sepsis screen is negative. Does the patient have a suspected source of infection? No. Patient's initial sepsis screen is negative. Care prior to arrival: None. 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 - Social history:: Smoking status: Patient/guardian denies using tobacco. - Ebola Screening: : Patient negative for fever greater than or equal to 101.5 degrees Fahrenheit, and additional compatible Ebola Virus Disease symptoms Patient denies exposure to infectious person Patient denies travel to an Ebola-affected area in the 21 days before illness onset No symptoms or risks identified at this time. - Family history:: not pertinent. Screenin:56 Abuse screen: Denies threats or abuse. Denies injuries from another. Nutritional mg2 screening: No deficits noted. Tuberculosis screening: No symptoms or risk factors identified. Fall Risk Secondary diagnosis (15 points) blurring of vision. Assessment: 15:25 General: Appears in no apparent distress. comfortable, Behavior is calm, cooperative. mg2 Pain: Complains of pain in head Pain does not radiate. Pain currently is 7 out of 10 on a pain scale. Quality of pain is described as aching, Pain began gradually, 2-3 days ago. Is intermittent. Neuro: Level of Consciousness is awake, alert, obeys commands, Oriented to person, place, time, situation, Reports blurred vision dizziness, headache frontal area. Cardiovascular: Capillary refill < 3 seconds Patient's skin is warm and dry. Respiratory: Airway is patent Respiratory effort is even, unlabored, Respiratory pattern is regular, symmetrical. GI: Reports nausea, vomiting. : No signs and/or symptoms were reported regarding the genitourinary system. EENT: No signs and/or symptoms were reported regarding the EENT system. Derm: Skin is intact, is healthy with good turgor, Skin is pink, warm \\T\\ dry. normal. Musculoskeletal: No signs and/or symptoms reported regarding the musculoskeletal system. 17:00 Reassessment: Patient appears in no apparent distress at this time. Patient and/or mg2 family updated on plan of care and expected duration. Pain level reassessed. Patient is alert, oriented x 3, equal unlabored respirations, skin warm/dry/pink. Vital Signs: 14:49 BP 125 / 87; Pulse 82; Resp 17; Pulse Ox 100% on R/A; Weight 104.33 kg (R); Height 5 sg ft. 7 in. (170.18 cm); Pain 10/10; 16:59 BP 119 / 77; Pulse 77; Resp 18; Pulse Ox 100% on R/A; mg2 18:00 BP 120 / 78; Pulse 80; Resp 18; Pulse Ox 100% on R/A; Pain 0/10; mg2 19:00 BP 119 / 78; Pulse 78; Resp 18; Pulse Ox 100% on R/A; Pain 0/10; mg2 14:49 Body Mass Index 36.02 (104.33 kg, 170.18 cm) ED Course: 14:36 Patient arrived in ED. mr 14:37 Oliva Long MD is Private Physician. mr 14:42 Arm band placed on. sg 14:44 Triage completed. sg 14:56 Lawson Jimenes, RN is Primary Nurse. mg2 14:59 Jose Cleaning MD is Attending Physician. harrison 15:00 EKG done, by pharmacy technician per diem. reviewed by Jose Cleaning MD. at1 15:21 X-ray completed. Portable x-ray completed in exam room. Patient tolerated procedure bb2 well. 15:24 XRAY Chest (1 view) In Process Unspecified. EDMS 15:27 No provider procedures requiring assistance completed. Inserted saline lock: 20 gauge mg2 in right antecubital area, using aseptic technique. Blood collected. 15:29 Patient has correct armband on for positive identification. Pulse ox on. NIBP on. Door mg2 closed. Warm blanket given. 15:45 CT completed. Patient tolerated procedure well. Patient moved to CT via stretcher. vr Patient moved back from CT. 15:45 CT Head Brain wo Cont In Process Unspecified. EDMS 17:40 Brain Wo Cont In Process Unspecified. EDMS 18:12 Oliva Long MD is Referral Physician. harrison 19:05 IV discontinued, intact, bleeding controlled, No redness/swelling at site. Pressure mg2 dressing applied. Administered Medications: 15:19 Drug: NS 0.9% 500 ml Route: IV; Rate: bolus; Site: right antecubital; mg2 15:50 Follow up: Response: No adverse reaction; IV Status: Completed infusion mg2 16:19 Drug: foLIC Acid 1 mg Route: IVPB; Site: right antecubital; mg2 17:00 Follow up: Response: No adverse reaction; IV Status: Completed infusion mg2 16:20 Drug: NS 0.9% 1000 ml Route: IV; Rate: 125 ml/hr; Site: right antecubital; mg2 19:04 Follow up: Response: No adverse reaction; IV Status: Order to discontinue infusion mg2 18:46 Drug: Aspirin 81 mg Route: PO; mg2 19:04 Follow up: Response: No adverse reaction; Medication administered at discharge. mg2 18:46 Drug: Meclizine 25 mg Route: PO; mg2 19:03 Follow up: Response: No adverse reaction; Medication administered at discharge. mg2 18:46 Drug: Zofran 4 mg Route: IVP; Site: left antecubital; mg2 19:03 Follow up: Response: No adverse reaction; Medication administered at discharge. mg2 Outcome: 18:14 Discharge ordered by . harrison 19:06 Discharged to home via wheelchair, with family. mg2 19:06 Condition: stable 19:06 Discharge instructions given to patient, family, Instructed on discharge instructions, follow up and referral plans. medication usage, Demonstrated understanding of instructions, follow-up care, medications, Prescriptions given X 2. 19:06 Patient left the ED. mg2 Signatures: Dispatcher [employer] EDMS John Shultz, MARKEL RN Jose Merlos MD MD cha Rivera, Kristel mr Joseph, Blaire Hunt, metallurgical engineer EKG Tat1 Nita Mullnis bb2 Lawson Jimenes RN RN mg2 Corrections: (The following items were deleted from the chart) 15:27 15:25 Neuro: Level of Consciousness is awake, alert, obeys commands, Oriented to mg2 person, place, time, situation, mg2
--- NOTE | 2018-04-07 18:15 | EDPHYS ---
Physician Documentation [facility] Name: Prisca Hernandez Age: 52 yrs Sex: Female : 1965 Arrival Date: 04/07/2018 Time: 14:36 Bed 27 Private MD: Oliva Long K ED Physician Jose Cleaning HPI: 04/07 15:34 This 52 yrs old Female presents to ER via Ambulatory with complaints of harrison Dizziness, Vision Problem. 15:34 The patient presents with dizziness. harrison 15:34 The patient complains of pain to the forehead, left side of forehead and right side of harrison forehead. The patient describes the headache as a pressure. Onset: The symptoms/episode began/occurred 1 week(s) ago. The patient presents to the emergency department with nausea, vomiting. Onset: The symptoms/episode began/occurred 7 day(s) ago. Possible causes: unknown. Onset: The symptoms/episode began/occurred 1 week(s) ago. 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 - Social history:: Smoking status: Patient/guardian denies using tobacco. - Ebola Screening: : Patient negative for fever greater than or equal to 101.5 degrees Fahrenheit, and additional compatible Ebola Virus Disease symptoms Patient denies exposure to infectious person Patient denies travel to an Ebola-affected area in the 21 days before illness onset No symptoms or risks identified at this time. - Family history:: not pertinent. ROS: 15:34 Constitutional: Negative for fever, chills, and weight loss, Eyes: Negative for injury, harrison pain, redness, and discharge, ENT: Negative for injury, pain, and discharge, Neck: Negative for injury, pain, and swelling, Cardiovascular: Negative for chest pain, palpitations, and edema, Respiratory: Negative for shortness of breath, cough, wheezing, and pleuritic chest pain, Abdomen/GI: Negative for abdominal pain, nausea, vomiting, diarrhea, and constipation, Back: Negative for injury and pain, : Negative for injury, bleeding, discharge, and swelling, MS/Extremity: Negative for injury and deformity, Skin: Negative for injury, rash, and discoloration, Neuro: Negative for headache, weakness, numbness, tingling, and seizure, Psych: Negative for depression, anxiety, suicide ideation, homicidal ideation, and hallucinations, Endocrine: Negative for neck swelling, polydipsia, polyuria, polyphagia, and marked weight changes, Hematologic/Lymphatic: Negative for swollen nodes, abnormal bleeding, and unusual bruising. 15:34 Eyes: Positive for visual disturbance. Exam: 15:34 Constitutional: This is a well developed, well nourished patient who is awake, alert, harrison and in no acute distress. Head/Face: Normocephalic, atraumatic. Eyes: Pupils equal round and reactive to light, extra-ocular motions intact. Lids and lashes normal. Conjunctiva and sclera are non-icteric and not injected. Cornea within normal limits. Periorbital areas with no swelling, redness, or edema. ENT: Nares patent. No nasal discharge, no septal abnormalities noted. Tympanic membranes are normal and external auditory canals are clear. Oropharynx with no redness, swelling, or masses, exudates, or evidence of obstruction, uvula midline. Mucous membranes moist. Neck: Trachea midline, no thyromegaly or masses palpated, and no cervical lymphadenopathy. Supple, full range of motion without nuchal rigidity, or vertebral point tenderness. No Meningismus. Chest/axilla: Normal chest wall appearance and motion. Nontender with no deformity. No lesions are appreciated. Cardiovascular: Regular rate and rhythm with a normal S1 and S2. No gallops, murmurs, or rubs. Normal PMI, no JVD. No pulse deficits. Respiratory: Lungs have equal breath sounds bilaterally, clear to auscultation and percussion. No rales, rhonchi or wheezes noted. No increased work of breathing, no retractions or nasal flaring. Abdomen/GI: Soft, non-tender, with normal bowel sounds. No distension or tympany. No guarding or rebound. No evidence of tenderness throughout. Back: No spinal tenderness. No costovertebral tenderness. Full range of motion. Female : Normal external genitalia. Skin: Warm, dry with normal turgor. Normal color with no rashes, no lesions, and no evidence of cellulitis. MS/ Extremity: Pulses equal, no cyanosis. Neurovascular intact. Full, normal range of motion. Neuro: Awake and alert, GCS 15, oriented to person, place, time, and situation. Cranial nerves II-XII grossly intact. Motor strength 5/5 in all extremities. Sensory grossly intact. Cerebellar exam normal. Normal gait. Psych: Awake, alert, with orientation to person, place and time. Behavior, mood, and affect are within normal limits. Vital Signs: 14:49 BP 125 / 87; Pulse 82; Resp 17; Pulse Ox 100% on R/A; Weight 104.33 kg (R); Height 5 sg ft. 7 in. (170.18 cm); Pain 10/10; 16:59 BP 119 / 77; Pulse 77; Resp 18; Pulse Ox 100% on R/A; mg2 18:00 BP 120 / 78; Pulse 80; Resp 18; Pulse Ox 100% on R/A; Pain 0/10; mg2 19:00 BP 119 / 78; Pulse 78; Resp 18; Pulse Ox 100% on R/A; Pain 0/10; mg2 14:49 Body Mass Index 36.02 (104.33 kg, 170.18 cm) MDM: 14:59 Patient medically screened. [facility] 15:37 Data reviewed: vital signs, nurses notes, lab test result(s), EKG, radiologic studies, [facility] CT scan, MRI, plain films. 04/07 15:02 Order name: Basic Metabolic Panel; Complete Time: 16:52 [facility] 04/07 15:02 Order name: CBC with Diff; Complete Time: 16:52 [facility] 04/07 15:02 Order name: LFT's; Complete Time: 16:52 [facility] 04/07 15:02 Order name: Magnesium; Complete Time: 16:52 [facility] 04/07 15:02 Order name: NT PRO-BNP; Complete Time: 16:52 [facility] 04/07 15:02 Order name: PT-INR; Complete Time: 16:24 [facility] 04/07 15:02 Order name: Troponin (emerg Dept Use Only); Complete Time: 16:52 [facility] 04/07 15:02 Order name: XRAY Chest (1 view); Complete Time: 16:24 [facility] 04/07 15:33 Order name: CT Head Brain wo Cont; Complete Time: 16:24 [facility] 04/07 15:33 Order name: Lipase; Complete Time: 16:52 [facility] 04/07 15:33 Order name: Urine Culture [facility] 04/07 16:39 Order name: Urine Dipstick--Ancillary (enter results) 04/07 16:39 Order name: Urine --Ancillary (enter results) 04/07 15:02 Order name: EKG; Complete Time: 15:03 [facility] 04/07 15:02 Order name: Cardiac monitoring; Complete Time: 15:17 [facility] 04/07 15:02 Order name: EKG - Nurse/Tech; Complete Time: 15:19 [facility] 04/07 15:02 Order name: IV Saline Lock; Complete Time: 15:19 [facility] 04/07 15:02 Order name: Labs collected and sent; Complete Time: 15:19 [facility] 04/07 15:02 Order name: O2 Per Protocol; Complete Time: 15:19 [facility] 04/07 15:02 Order name: O2 Sat Monitoring; Complete Time: 15:19 [facility] 04/07 15:02 Order name: Urine Dipstick-Ancillary (obtain specimen); Complete Time: 16:59 [facility] 04/07 17:39 Order name: Brain Wo Cont; Complete Time: 18:10 EDMS Administered Medications: 15:19 Drug: NS 0.9% 500 ml Route: IV; Rate: bolus; Site: right antecubital; mg2 15:50 Follow up: Response: No adverse reaction; IV Status: Completed infusion mg2 16:19 Drug: foLIC Acid 1 mg Route: IVPB; Site: right antecubital; mg2 17:00 Follow up: Response: No adverse reaction; IV Status: Completed infusion mg2 16:20 Drug: NS 0.9% 1000 ml Route: IV; Rate: 125 ml/hr; Site: right antecubital; mg2 19:04 Follow up: Response: No adverse reaction; IV Status: Order to discontinue infusion mg2 18:46 Drug: Aspirin 81 mg Route: PO; mg2 19:04 Follow up: Response: No adverse reaction; Medication administered at discharge. mg2 18:46 Drug: Meclizine 25 mg Route: PO; mg2 19:03 Follow up: Response: No adverse reaction; Medication administered at discharge. mg2 18:46 Drug: Zofran 4 mg Route: IVP; Site: left antecubital; mg2 19:03 Follow up: Response: No adverse reaction; Medication administered at discharge. mg2 Disposition: 04/07/18 18:14 Discharged to Home. Impression: Dizziness and giddiness, Diplopia. - Condition is Stable. - Discharge Instructions: Diplopia, Dizziness, Aspirin and Your Heart, Dizziness, [id number]. - Prescriptions for Meclizine 25 mg Oral Tablet - take 1 tablet by ORAL route every 8 hours As needed; 21 tablet. Zofran 4 mg Oral Tablet - take 1 tablet by ORAL route every 12 hours As needed; 14 tablet. - Medication Reconciliation Form, Thank You Letter, Antibiotic Education, Prescription Opioid Use, Work release form form. - Follow up: Oliva Long MD; Reason: Recheck today's complaints, Re-evaluation by your physician. - Problem is new. - Symptoms have improved. Signatures: Dispatcher [employer] EDMA John Shultz RN RN Jose Merlos MD MD cha Gardose, Michele RN RN mg2 Corrections: (The following items were deleted from the chart) 17:39 15:34 MR STROKE PROTOCOL+MRI.RAD.BRZ ordered. [facility] EDMA 19:06 18:14 04/07/2018 18:14 Discharged to Home. Impression: Dizziness and giddiness; mg2 Diplopia. Condition is Stable. Forms are Medication Reconciliation Form, Thank You Letter, Antibiotic Education, Prescription Opioid Use. Follow up: Oliva Long; Reason: Recheck today's complaints, Re-evaluation by your physician. Problem is new. Symptoms have improved. harrison
[2018-04-07] MEDS ORDERED: MECLIZINE HCL 12.5 MG TAB ONE (18:43)
[2018-04-07] MEDS ORDERED: ASPIRIN EC 81 MG TAB PO ONE (18:44)
[2018-04-07 19:03] LABS: Urine Blood TRACE (NEG); Urine Glucose NEGATIVE (NEG); Urine Protein NEGATIVE (NEG); Urine Specific Gravity 1.015 (1.005-1.030)
[2018-04-07 20:09] VITALS: O2SAT 100
[2018-04-07 20:13] VITALS: BP 119/78
--- NOTE | 2018-04-08 06:24 | EKG ---
Test Date: 2018-04-07 Test Time: 14:56:16 Hand Painter: TATE MEASUREMENT RESULTS: Intervals: Rate: 79 MA: 164 QRSD: 74 QT: 360 QTc: 412 [place]: P: -10 MA: 164 QRS: 24 T: 6 INTERPRETIVE STATEMENTS: Normal sinus rhythm Normal ECG Compared to ECG 01/17/2018 15:22:10 Sinus bradycardia no longer present Electronically Signed On 04-08-18 06:13:43 POSTAL CLERK by Dick Cheema
== END 2018-04-07 19:06 | disposition home or self-care (01) ==
LOC: ER 14:33
DX: H53.2 Diplopia (principal); R42 Dizziness and giddiness; I10 Essential (primary) hypertension; M79.7 Fibromyalgia; Z79.899 Other long term (current) drug therapy
CPT/HCPCS: 36415; 70450; 70551; 71045; 80048; 80076; 81003; 81025; 83690; 83735; 83880; 84484; 85025; 85610; 87086; 87088; 93005; 96361; 96365; 96375; 99285; J2405; J7030

== ENCOUNTER 2018-12-28 21:26 | Emergency (ER) | payer BC ==
[2018-12-28] MEDS ORDERED: PROMETHAZINE 25 MG/ML VIAL ONE (23:09)
[2018-12-28] MEDS ORDERED: DICYCLOMINE HCL 10 MG CAP ONE (23:09)
[2018-12-28] MEDS ORDERED: NA CHLORIDE 0.9% 1,000 ML ONE (23:19)
[2018-12-28 23:23] LABS: Urine Blood NEGATIVE (NEG); Urine Glucose NEGATIVE (NEG); Urine Protein NEGATIVE (NEG); Urine Specific Gravity 1.025 (1.005-1.030); Urine pH 5.5 (5.0-7.0)
[2018-12-28 23:30] LABS: Urine Culture Reflex Order NOT NEEDED
[2018-12-28 23:33] LABS: Calcium Oxalate Crystals- Ur MODERATE (NONE SEEN); Urine Bacteria <20 /HPF (<20); Urine Mucus 2+ /HPF (NONE SEEN); Urine RBC <5 /HPF (NONE SEEN)
[2018-12-28 23:59] LABS: Basophils % 0.8 % (0-1.3); Hematocrit 35.7 % (36.0-45.0); Lymphocytes % 33.7 % (15.3-44.8); MPV 9.6 fL (7.6-11.3); Protime INR 1.04; RBC Red Blood Cell Count 3.98 M/uL (3.86-4.86)
[2018-12-29 00:11] LABS: ALT/SGPT 23 U/L (12-78); AST/SGOT 24 U/L (15-37); Albumin 3.6 g/dL (3.4-5.0); Alkaline Phosphatase 77 U/L (45-117); BUN Blood Urea Nitrogen 19 mg/dL (7-18); Bicarbonate 25 mmol/L (21-32); Bilirubin Direct 0.1 mg/dL (0-0.2); Bilirubin Total 0.4 mg/dL (0.2-1.0); Glucose Level 106 mg/dL (74-106); Magnesium 1.9 mg/dL (1.8-2.4); NT PRO-BNP 70 pg/mL (<125); Potassium 3.1 mmol/L (3.5-5.1); Protein, Total 6.6 g/dL (6.4-8.2); Sodium Level 143 mmol/L (136-145); Troponin (Emerg Dept Use Only) < 0.02 ng/mL (0.0-0.045)
[2018-12-29] MEDS ORDERED: KCL 20 MEQ/100 mL IVPB 20 MEQ/100 ML BAG IV ONE (00:23)
[2018-12-29] MEDS ORDERED: NA CHLORIDE 0.9% 1,000 ML ONE (00:23)
--- NOTE | 2018-12-29 02:38 | ER ---
Nurse's Notes [facility] Name: Prisca Hernandez Age: 53 yrs Sex: Female : 1965 Arrival Date: 12/28/2018 Time: 21:36 Bed 30 Private MD: Diagnosis: Hypokalemia;Dehydration;Nausea Presentation: 12/28 21:59 Presenting complaint: Patient states: Headache and nausea that started on Wednesday. ao Patient reports feels like dehydrated as she has been in the past. Patient called primary and was told to come to ER to get hydrated. Patient report nausea and vomiting also. Transition of care: patient was not received from another setting of care. Onset of symptoms. Risk Assessment: Do you want to hurt yourself or someone else? Patient reports no desire to harm self or others. Initial Sepsis Screen: Does the patient meet any 2 criteria? No. Patient's initial sepsis screen is negative. Does the patient have a suspected source of infection? No. Patient's initial sepsis screen is negative. Care prior to arrival: None. 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 - Social history:: Smoking status: Patient/guardian denies using tobacco, Patient uses alcohol, occasionally. Patient/guardian denies using street drugs, IV drugs. - Ebola Screening: : Patient negative for fever greater than or equal to 101.5 degrees Fahrenheit, and additional compatible Ebola Virus Disease symptoms Patient denies exposure to infectious person Patient denies travel to an Ebola-affected area in the 21 days before illness onset. Screenin:40 Abuse screen: Denies threats or abuse. Nutritional screening: No deficits noted. tr5 Tuberculosis screening: No symptoms or risk factors identified. Fall Risk None identified. Assessment: 22:40 General: Appears uncomfortable, Behavior is calm, cooperative. Pain: Denies pain. tr5 Neuro: Level of Consciousness is awake, alert, Oriented to person, place, time, Tool Analyst are equal bilaterally Moves all extremities. Cardiovascular: Heart tones present Capillary refill < 3 seconds Pulses are all present. Edema is absent. Respiratory: Airway is patent Respiratory effort is even, unlabored, Respiratory pattern is regular, symmetrical. GI: Abdomen is round Reports nausea. : No signs and/or symptoms were reported regarding the genitourinary system. EENT: No signs and/or symptoms were reported regarding the EENT system. Derm: No signs and/or symptoms reported regarding the dermatologic system. Musculoskeletal: No signs and/or symptoms reported regarding the musculoskeletal system. 12/29 00:10 Reassessment: Patient appears in no apparent distress at this time. Patient and/or tr5 family updated on plan of care and expected duration. Pain level reassessed. Patient is alert, oriented x 3, equal unlabored respirations, skin warm/dry/pink. 01:12 Reassessment: Patient appears in no apparent distress at this time. Patient and/or ao family updated on plan of care and expected duration. Pain level reassessed. Patient is alert, oriented x 3, equal unlabored respirations, skin warm/dry/pink. 02:14 Reassessment: Patient appears in no apparent distress at this time. Patient and/or ao family updated on plan of care and expected duration. Pain level reassessed. Vital Signs: 12/28 22:02 BP 128 / 88; Pulse 81; Resp 16; Temp 98.4; Pulse Ox 98% on R/A; Weight 85.28 kg; Height ao 5 ft. 7 in. (170.18 cm); Pain 4/10; 23:00 BP 121 / 75; Pulse 74; Resp 16; Pulse Ox 100% ; tr5 12/29 00:49 BP 125 / 74; Pulse 75; Resp 18; Pulse Ox 99% on R/A; ao 02:14 BP 123 / 70; Pulse 72; Resp 12; Pulse Ox 100% on R/A; ao 12/28 22:02 Body Mass Index 29.44 (85.28 kg, 170.18 cm) ao ED Course: 12/28 21:36 Patient arrived in ED. cf2 21:39 [facility]C [facility] snw 21:39 Shant Knapp MD is Attending Physician. snw 22:02 Triage completed. ao 22:05 Arm band placed on right wrist. Patient placed in an exam room, on a stretcher, on ao pulse oximetry, Patient notified of wait time. 22:13 Yunier Fuchs RN is Primary Nurse. tr5 22:40 Bed in low position. Call light in reach. tr5 22:40 Inserted saline lock: 18 gauge in right antecubital area, using aseptic technique. tr5 Oxygen administration via nasal cannula \T\ 3L/min. 23:34 Initial lab(s) drawn, Lab(s) recollected, by me, sent to lab. Urine collected: clean jp3 catch specimen, clear, garret colored, EKG done, by ED staff, reviewed by Carolyne BRANDT. 12/29 01:11 Report received from Chayito Fuchs RN. ao 03:21 No provider procedures requiring assistance completed. IV discontinued, intact, ao bleeding controlled, No redness/swelling at site. Pressure dressing applied. Administered Medications: 12/28 23:17 Drug: Phenergan 12.5 mg Route: IVP; Site: right antecubital; tr5 12/29 00:19 Follow up: Response: Nausea is decreased tr5 12/28 23:17 Drug: Bentyl 20 mg Route: PO; tr5 12/29 00:18 Follow up: Response: No adverse reaction tr5 12/28 23:21 Drug: NS 0.9% 1000 ml Route: IV; Rate: 1 bolus; Site: right antecubital; tr5 12/29 00:37 Drug: Potassium Chloride 20 mEq Route: IV; Rate: calculated rate; Site: right tr5 antecubital; 00:37 Drug: NS 0.9% 1000 ml Route: IV; Rate: 1 bolus; Site: right antecubital; tr5 Outcome: 02:37 Discharge ordered by . snw 03:21 Discharged to home ambulatory. ao 03:21 Condition: stable 03:21 Discharge instructions given to patient, Instructed on discharge instructions, follow up and referral plans. the need for admit, Demonstrated understanding of instructions, follow-up care, medications, Prescriptions given X 1. 03:22 Patient left the ED. ao Signatures: Carolyne Licona, CODING QUALITY ANALYST-C CODING QUALITY ANALYST-Csnw Zaid Andrews, RN RN Kurt Bowen jp3 Yunier Fuchs RN RN tr5 Sanam Lutz 2
--- NOTE | 2018-12-29 02:38 | EDPHYS ---
Physician Documentation [facility] Name: Prisca Hernandez Age: 53 yrs Sex: Female : 1965 Arrival Date: 12/28/2018 Time: 21:36 Bed 30 Private MD: CITLALI Physician Shant Knapp HPI: 12/28 22:23 This 53 yrs old Female presents to ER via Ambulatory with complaints of snw Nausea. 22:23 The patient presents to the emergency department with nausea, vomiting, diarrhea. snw Onset: The symptoms/episode began/occurred suddenly, 3 day(s) ago, and became persistent. Possible causes: unknown. The symptoms are aggravated by gastric sleeve and pt unable to hold down fluids. Associated signs and symptoms: The patient has no apparent associated signs or symptoms. Severity of symptoms: At their worst the symptoms were moderate in the emergency department the symptoms are unchanged. It is unknown whether or not the patient has had similar symptoms in the past. The patient has not recently seen a physician. 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 - Social history:: Smoking status: Patient/guardian denies using tobacco, Patient uses alcohol, occasionally. Patient/guardian denies using street drugs, IV drugs. - Ebola Screening: : Patient negative for fever greater than or equal to 101.5 degrees Fahrenheit, and additional compatible Ebola Virus Disease symptoms Patient denies exposure to infectious person Patient denies travel to an Ebola-affected area in the 21 days before illness onset. ROS: 22:21 Constitutional: Negative for fever, chills, + fatigue, listlessness, weight loss, Eyes: snw Negative for injury, pain, redness, and discharge, ENT: Negative for injury, pain, and discharge, Neck: Negative for injury, pain, and swelling, Cardiovascular: Negative for chest pain, palpitations, and edema, Respiratory: Negative for shortness of breath, cough, wheezing, and pleuritic chest pain, Back: Negative for injury and pain, : Negative for injury, bleeding, discharge, and swelling, MS/Extremity: Negative for injury and deformity, Skin: Negative for injury, rash, and discoloration. 22:21 Abdomen/GI: Positive for nausea and vomiting, diarrhea. 22:21 Neuro: Positive for headache, weakness, "lethargic". Exam: 22:21 Constitutional: This is a well developed, well nourished patient who is awake, alert, snw and in no acute distress. Head/Face: Normocephalic, atraumatic. Eyes: Pupils equal round and reactive to light, extra-ocular motions intact. Lids and lashes normal. Conjunctiva and sclera are non-icteric and not injected. Cornea within normal limits. Periorbital areas with no swelling, redness, or edema. ENT: Nares patent. No nasal discharge, no septal abnormalities noted. Tympanic membranes are normal and external auditory canals are clear. Oropharynx with no redness, swelling, or masses, exudates, or evidence of obstruction, uvula midline. Mucous membranes moist. Neck: Trachea midline, no thyromegaly or masses palpated, and no cervical lymphadenopathy. Supple, full range of motion without nuchal rigidity, or vertebral point tenderness. No Meningismus. Chest/axilla: Normal chest wall appearance and motion. Nontender with no deformity. No lesions are appreciated. Cardiovascular: Regular rate and rhythm with a normal S1 and S2. No gallops, murmurs, or rubs. Normal PMI, no JVD. No pulse deficits. Respiratory: Lungs have equal breath sounds bilaterally, clear to auscultation and percussion. No rales, rhonchi or wheezes noted. No increased work of breathing, no retractions or nasal flaring. Back: No spinal tenderness. No costovertebral tenderness. Full range of motion. MS/ Extremity: Pulses equal, no cyanosis. Neurovascular intact. Full, normal range of motion. Neuro: Awake and alert, GCS 15, oriented to person, place, time, and situation. Cranial nerves II-XII grossly intact. Motor strength 5/5 in all extremities. Sensory grossly intact. Cerebellar exam normal. Normal gait. Psych: Awake, alert, with orientation to person, place and time. Behavior, mood, and affect are within normal limits. 22:21 Abdomen/GI: Inspection: abdomen appears normal, Bowel sounds: hyperactive, in all quadrants, Palpation: mild abdominal tenderness. Vital Signs: 22:02 BP 128 / 88; Pulse 81; Resp 16; Temp 98.4; Pulse Ox 98% on R/A; Weight 85.28 kg; Height ao 5 ft. 7 in. (170.18 cm); Pain 4/10; 23:00 BP 121 / 75; Pulse 74; Resp 16; Pulse Ox 100% ; tr5 12/29 00:49 BP 125 / 74; Pulse 75; Resp 18; Pulse Ox 99% on R/A; ao 02:14 BP 123 / 70; Pulse 72; Resp 12; Pulse Ox 100% on R/A; ao 12/28 22:02 Body Mass Index 29.44 (85.28 kg, 170.18 cm) ao MDM: 12/28 22:15 Patient medically screened. snw 12/29 02:37 Data reviewed: vital signs, nurses notes. Data interpreted: Pulse oximetry: on room air snw is 100 %. Interpretation: normal. Counseling: I had a detailed discussion with the patient and/or guardian regarding: the historical points, exam findings, and any diagnostic results supporting the discharge/admit diagnosis, lab results, the need for outpatient follow up, to return to the emergency department if symptoms worsen or persist or if there are any questions or concerns that arise at home. Special discussion: Based on the patient's Hx, exam, and Dx evaluation, there is no indication for emergent surgery or inpatient Tx. It is understood by the patient/guardian that if the Sx's persist or worsen they need to return immediately for re-evaluation. Based on the history and exam findings, there is no indication for further emergent testing or inpatient evaluation. I discussed with the patient/guardian the need to see the primary care provider for further evaluation of the symptoms. 12/28 22:14 Order name: Basic Metabolic Panel; Complete Time: 00:15 snw 12/28 22:14 Order name: CBC with Diff; Complete Time: 00:04 snw 12/28 22:14 Order name: LFT's; Complete Time: 00:15 snw 12/28 22:14 Order name: Magnesium; Complete Time: 00:15 snw 12/28 22:14 Order name: NT PRO-BNP; Complete Time: 00:15 snw 12/28 22:14 Order name: PT-INR; Complete Time: 00:04 snw 12/28 22:14 Order name: Troponin (emerg Dept Use Only); Complete Time: 00:15 snw 12/28 22:14 Order name: Urine Culture snw 12/28 22:14 Order name: Urine Microscopic Only; Complete Time: 23:38 snw 12/28 23:19 Order name: Urine Dipstick--Ancillary (enter results) [facility] 12/28 23:19 Order name: Urine --Ancillary (enter results) [facility] 12/28 22:14 Order name: EKG; Complete Time: 22:16 snw 12/28 22:14 Order name: Cardiac monitoring; Complete Time: 22:33 snw 12/28 22:14 Order name: EKG - Nurse/Tech; Complete Time: 22:33 snw 12/28 22:14 Order name: IV Saline Lock; Complete Time: 23:07 snw 12/28 22:14 Order name: Labs collected and sent; Complete Time: 23:07 snw 12/28 22:14 Order name: O2 Per Protocol; Complete Time: 22:33 snw 12/28 22:14 Order name: O2 Sat Monitoring; Complete Time: 22:33 snw 12/28 22:14 Order name: Urine Dipstick-Ancillary (obtain specimen); Complete Time: 23:40 snw Administered Medications: 12/28 23:17 Drug: Phenergan 12.5 mg Route: IVP; Site: right antecubital; tr5 12/29 00:19 Follow up: Response: Nausea is decreased 5 12/28 23:17 Drug: Bentyl 20 mg Route: PO; tr5 12/29 00:18 Follow up: Response: No adverse reaction 5 12/28 23:21 Drug: NS 0.9% 1000 ml Route: IV; Rate: 1 bolus; Site: right antecubital; tr5 12/29 00:37 Drug: Potassium Chloride 20 mEq Route: IV; Rate: calculated rate; Site: right tr5 antecubital; 00:37 Drug: NS 0.9% 1000 ml Route: IV; Rate: 1 bolus; Site: right antecubital; tr5 Disposition: 05:14 Co-signature as Attending Physician, Shant Knapp MD Available for consultation at ps1 all times . Disposition: 12/29/18 02:37 Discharged to Home. Impression: Hypokalemia, Dehydration, Nausea. - Condition is Stable. - Discharge Instructions: Dehydration, Adult, Potassium Content of Foods, Nausea, Adult, Rehydration, Adult. - Prescriptions for promethazine 25 mg Oral Tablet - take 1 tablet by ORAL route every 6 hours As needed; 20 tablet. - Work release form, Medication Reconciliation Form, Thank You Letter, Antibiotic Education, Prescription Opioid Use form. - Follow up: Private Physician; When: 2 - 3 days; Reason: Recheck today's complaints, Continuance of care, Re-evaluation by your physician. Follow up: Emergency Department; When: As needed; Reason: Worsening of condition. Signatures: Dispatcher [employer] EDMS Carolyne Licona, MERARY-C ADMINISTRATIVE RESOURCES ASSOCIATE-Csnw Zaid Andrews, RN RN Shant Deutsch MD MD ps1 Yunier Fuchs RN RN tr5 Corrections: (The following items were deleted from the chart) 03:22 02:37 12/29/2018 02:37 Discharged to Home. Impression: Hypokalemia; Dehydration; ao Nausea. Condition is Stable. Forms are Medication Reconciliation Form, Thank You Letter, Antibiotic Education, Prescription Opioid Use. Follow up: Private Physician; When: 2 - 3 days; Reason: Recheck today's complaints, Continuance of care, Re-evaluation by your physician. Follow up: Emergency Department; When: As needed; Reason: Worsening of condition. snw
[2018-12-29 03:42] VITALS: TEMP 98.4
[2018-12-29 03:45] VITALS: BP 123/70; O2SAT 100
--- NOTE | 2018-12-29 06:33 | EKG ---
Test Date: 2018-12-28 Test Time: 22:26:09 Laboratory Geneticist: VAL MEASUREMENT RESULTS: Intervals: Rate: 61 IN: 160 QRSD: 82 QT: 418 QTc: 420 [place]: P: 69 IN: 160 QRS: 63 T: 67 INTERPRETIVE STATEMENTS: Normal sinus rhythm Normal ECG Compared to ECG 04/07/2018 14:56:16 No significant changes Electronically Signed On 12-29-18 06:32:18 CDT by Dick Cheema
== END 2018-12-29 03:22 | disposition home or self-care (01) ==
LOC: ER 21:26
DX: E87.6 Hypokalemia (principal); E86.0 Dehydration; I10 Essential (primary) hypertension
CPT/HCPCS: 93005; 87088; 85025; 87086; 80048; 36415; 83735; 81025; 85610; 80076; 84484; 83880; 96375; 96374; 99284; J2550; J7030 ×2; 81003; 81015

== ENCOUNTER 2019-05-09 12:15 | Emergency (ER) | payer BC ==
--- OUTSIDE RECORDS SUMMARY | 2019-05-09 12:17 | XMS REPORT ---
:1965 [facility] Address [address] [place], [place] [address]shahnaz Ramirez [address] [place] [id number] Care Team Providers Name Role Phone JANETTE PENA Unavailable Unavailable Problems This patient has no known problems. Allergies, Adverse Reactions, Alerts This patient has no known allergies or adverse reactions. Medications This patient has no known medications. Results Test Description Test Time Test Comments Text Results Atomic Results Result Comments MM, STEREOTACTIC 2017-07-29 Reason for Addendum BeginsMRN#: BIOPSY, BREAST, 10:16:00 Exam:->Microcalifications [id number]: RIGHT 07/29/2017 Orlando Jansen M.D. Pathology results are now available and demonstrate fibroadenoma with calcifications.This is concordant with the imaging findings. Addendum EndsMRN#: [id number] - MM, STEREOTACTIC BIOPSY, BREAST, RIGHTSTEREOTACTIC GUIDED [...] correct location, four specimens were obtained using Primo Round device. A clip was inserted into the [...] procedure complications. Orlando Jansen M.D. pth/:07/26/2017 13:05:30 Dulite Machine Bluer: Anastacia Shoemaker RT(R)(M), [facility] [id number] UE EXAM 2017-07-27 Surgical Pathology 16:52:00 Report Case: [id number] Authorizing Provider: Orlando Jansen MD Collected: 07/26/2017 1340 Ordering Location: [facility] Received: 07/26/2017 134 Pathologist: Shirley Ortiz MD Specimen: Breast, Right, RIGHT UPPER OUTER BREAST CALCIFICATIONS A. 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 [id number] x 1 Questionable sclerosing lesionRight upper outer [...] Performed. MM, DIGITAL, 2017-07-26 Right breast calcifications #[id number] UNILATERAL, 13:06:00 - MM, DIGITAL, CONFER JACKSON, [...] pathology results. Orlando Jansen M.D. pth/:07/26/2017 13:06:15 Dulite Machine Bluer: Anastacia SHETTY (R)), [facility] Mammogram BI-RADS: Post-procedure mammogram for marker placement [id number] ORRO MAMMO, 2017-07-26 Reason for exam:->Right #[id number] SPECIMEN, 13:06:00 breast calcifications - MM, MAMMO, SPECIMEN, RADIOGRAPH, RIGHT RADIOGRAPH, RIGHTSPECIMEN RIGHT BREAST: 07/26/2017Four stereotactic guided biopsy specimens were imaged for the area of calcifications located in the right breast at 10 o'clock middle depth. IMPRESSION: SPECIMENThe imaged specimens includes the calcifications. Orlando Jansen M.D. pth/:07/26/2017 13:06:46 Dulite Machine Bluer: Anastacia SHETTY (R)), [facility] [id number]
[2019-05-09] MEDS ORDERED: NA CHLORIDE 0.9% 1,000 ML ONE (13:25)
[2019-05-09 13:26] LABS: Absolute Lymphocytes (CBC) 2.4 K/uL (0.7-4.9); Basophils % 1.2 % (0-1.3); Lymphocytes % 37.6 % (15.3-44.8); MPV 8.6 fL (7.6-11.3); RBC Red Blood Cell Count 4.46 M/uL (3.86-4.86)
[2019-05-09 13:37] LABS: Protime INR 0.96
[2019-05-09 13:45] LABS: Albumin 4.1 g/dL (3.4-5.0); Bilirubin Direct 0.1 mg/dL (0-0.2); Bilirubin Total 0.3 mg/dL (0.2-1.0); Potassium 3.7 mmol/L (3.5-5.1); Protein, Total 7.6 g/dL (6.4-8.2)
[2019-05-09 13:52] LABS: Magnesium 2.3 mg/dL (1.8-2.4); NT PRO-BNP 183 pg/mL (<125); Troponin (Emerg Dept Use Only) < 0.02 ng/mL (0.0-0.045)
[2019-05-09 13:59] LABS: Urine Blood NEGATIVE (NEG); Urine Glucose NEGATIVE (NEG); Urine Protein NEGATIVE (NEG)
--- NOTE | 2019-05-09 14:29 | RAD REPORT ---
EXAM DESCRIPTION: CTAbdomen Pelvis W Contrast - 05/09/2019 2:08 pm CLINICAL HISTORY: Abdominal pain. ABD PAIN COMPARISON: Abdomen Pelvis W Contrast dated 02/08/2018; CT ABD PELVIS W CONTRAST dated 10/10/2012 TECHNIQUE: Biphasic CT imaging of the abdomen and pelvis was performed with 100 ml non-ionic IV cont rast. All CT scans are performed using dose optimization technique as appropriate and may include automated exposure control or mA/KV adjustment according to patient size. FINDINGS: The lung bases are clear.Postsurgical changes about the stomach. 11 mm hepatic cyst is suspected. No aggressive liver lesion identified. No intra or extrahepatic bili gerardo tree dilatation. The spleen, pancreas, adrenal glands and right kidney are normal. Numerous left renal cysts are present including largest cyst in the inferior aspect left kidney measuring 6 cm. No bowel obstruction, free air, free fluid or abscess. The appendix is not identified as a discrete structure, however, no secondary findings of appendicitis are identified. No evidence of significan t lymphadenopathy. No suspicious bony findings. IMPRESSION: No acute intra-abdominal or pelvic finding. Numerous left renal cysts.
--- NOTE | 2019-05-09 14:30 | RAD REPORT ---
EXAM DESCRIPTION: RAD - Chest Single View - 05/09/2019 2:20 pm CLINICAL HISTORY: ABDOMINAL DISTENTION Chest pain. COMPARISON: Chest Single View dated 04/07/2018; Chest Single View dated 01/17/2018; CHEST SINGLE VIEW dated 10/10/2012; CHEST PA AND LAT 2 VIEW dated 12/19/2007; Abdomen Pelvis W Contrast dated 0 FINDINGS: Portable technique limits examination quality. The lungs are grossly clear. The heart is normal in size. No displaced fractures. IMPRESSION: No acute intrathoracic process suspected.
--- NOTE | 2019-05-09 15:10 | EDPHYS ---
Physician Documentation [facility] Name: Prisca Hernandez Age: 53 yrs Sex: Female : 1965 Arrival Date: 05/09/2019 Time: 12:18 Bed 15 Private MD: Oliva Long K ED Physician Jose Cleaning HPI: 05/09 15:02 This 53 yrs old Female presents to ER via Ambulatory with complaints of harrison Abdominal Pain. 15:02 The patient presents with abdominal pain in the lower abdomen, right lower quadrant. harrison Onset: The symptoms/episode began/occurred 2 day(s) ago. The patient presents to the emergency department with nausea, vomiting, abdominal pain, of the right lower quadrant. Onset: The symptoms/episode began/occurred 1 day(s) ago. Possible causes: unknown. The symptoms are aggravated by nothing. The symptoms are alleviated by nothing. Associated signs and symptoms: Pertinent positives: abdominal pain, dysuria, nausea, vomiting. The symptoms do not radiate. Associated signs and symptoms: none. 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 - Coronavirus screen:: The patient has NOT traveled to [place], [place], or [place] in the past 14 days. Proceed with normal triage process as indicated. - Social history:: Smoking status: Patient denies any tobacco usage or history of. - Family history:: not pertinent. - Ebola Screening: : No symptoms or risks identified at this time. ROS: 15:02 Constitutional: Negative for fever, chills, and weight loss, Eyes: Negative for injury, harrison pain, redness, and discharge, ENT: Negative for injury, pain, and discharge, Neck: Negative for injury, pain, and swelling, Cardiovascular: Negative for chest pain, palpitations, and edema, Respiratory: Negative for shortness of breath, cough, wheezing, and pleuritic chest pain, Back: Negative for injury and pain, : Negative for injury, bleeding, discharge, and swelling, MS/Extremity: Negative for injury and deformity, Skin: Negative for injury, rash, and discoloration, Neuro: Negative for headache, weakness, numbness, tingling, and seizure, Psych: Negative for depression, anxiety, suicide ideation, homicidal ideation, and hallucinations, Allergy/Immunology: Negative for hives, rash, and allergies, Endocrine: Negative for neck swelling, polydipsia, polyuria, polyphagia, and marked weight changes, Hematologic/Lymphatic: Negative for swollen nodes, abnormal bleeding, and unusual bruising. 15:02 Abdomen/GI: Positive for abdominal pain, nausea and vomiting, of the right lower quadrant. Exam: 15:02 Constitutional: This is a well developed, well nourished patient who is awake, alert, harrison and in no acute distress. Head/Face: Normocephalic, atraumatic. Eyes: Pupils equal round and reactive to light, extra-ocular motions intact. Lids and lashes normal. Conjunctiva and sclera are non-icteric and not injected. Cornea within normal limits. Periorbital areas with no swelling, redness, or edema. ENT: Nares patent. No nasal discharge, no septal abnormalities noted. Tympanic membranes are normal and external auditory canals are clear. Oropharynx with no redness, swelling, or masses, exudates, or evidence of obstruction, uvula midline. Mucous membranes moist. Neck: Trachea midline, no thyromegaly or masses palpated, and no cervical lymphadenopathy. Supple, full range of motion without nuchal rigidity, or vertebral point tenderness. No Meningismus. Chest/axilla: Normal chest wall appearance and motion. Nontender with no deformity. No lesions are appreciated. Cardiovascular: Regular rate and rhythm with a normal S1 and S2. No gallops, murmurs, or rubs. Normal PMI, no JVD. No pulse deficits. Respiratory: Lungs have equal breath sounds bilaterally, clear to auscultation and percussion. No rales, rhonchi or wheezes noted. No increased work of breathing, no retractions or nasal flaring. Back: No spinal tenderness. No costovertebral tenderness. Full range of motion. Skin: Warm, dry with normal turgor. Normal color with no rashes, no lesions, and no evidence of cellulitis. MS/ Extremity: Pulses equal, no cyanosis. Neurovascular intact. Full, normal range of motion. Neuro: Awake and alert, GCS 15, oriented to person, place, time, and situation. Cranial nerves II-XII grossly intact. Motor strength 5/5 in all extremities. Sensory grossly intact. Cerebellar exam normal. Normal gait. Psych: Awake, alert, with orientation to person, place and time. Behavior, mood, and affect are within normal limits. 15:02 Abdomen/GI: Inspection: abdomen appears normal, Bowel sounds: normal, Palpation: mild abdominal tenderness, in the right lower quadrant, Liver: no appreciated palpable abnormalities, Hernia: not appreciated. Vital Signs: 13:09 BP 169 / 94; Pulse 66; Resp 17 S; Temp 97.9(O); Pulse Ox 100% on R/A; Weight 84.82 kg 7 (R); Height 5 ft. 7 in. (170.18 cm) (R); Pain 6/10; 13:52 BP 136 / 90; Pulse 64; Resp 17 S; Pulse Ox 99% on R/A; ca1 14:30 BP 149 / 93; Pulse 70; Resp 15 S; Pulse Ox 100% on R/A; ca1 15:30 BP 148 / 85; Pulse 64; Resp 16 S; Pulse Ox 100% on R/A; ca1 13:09 Body Mass Index 29.29 (84.82 kg, 170.18 cm) 7 MDM: 12:56 Patient medically screened. [facility] 15:07 Data reviewed: vital signs, nurses notes, lab test result(s), radiologic studies, CT harrison scan. 05/09 13:02 Order name: Basic Metabolic Panel ca1 05/09 13:02 Order name: CBC with Diff ca1 05/09 13:02 Order name: Creatinine for Radiology ca1 05/09 13:02 Order name: Hepatic Function ca1 05/09 13:02 Order name: Lipase ca1 05/09 13:13 Order name: Magnesium harrison 05/09 13:13 Order name: NT PRO-BNP harrison 05/09 13:13 Order name: PT-INR harrison 05/09 13:13 Order name: Troponin (emerg Dept Use Only) harrison 05/09 13:30 Order name: CBC with Automated Diff; Complete Time: 14:45 EDMS 05/09 13:38 Order name: Protime (+INR); Complete Time: 14:45 EDMS 05/09 13:46 Order name: Basic Metabolic Panel; Complete Time: 14:45 EDMS 05/09 13:46 Order name: Liver (Hepatic) Function; Complete Time: 14:45 EDMS 05/09 13:46 Order name: Lipase; Complete Time: 14:45 EDMN 05/09 13:02 Order name: IV Saline Lock; Complete Time: 13:14 [facility] 05/09 13:02 Order name: Labs collected and sent; Complete Time: 13:14 [facility] 05/09 13:13 Order name: XRAY Chest (1 view) [facility] 05/09 13:13 Order name: EKG; Complete Time: 13:13 [facility] 05/09 13:13 Order name: CT Abd/Pelvis - IV Contrast Only [facility] 05/09 13:46 Order name: Creatinine (Radiology Only); Complete Time: 14:45 EDMN 05/09 13:49 Order name: Urine Dipstick--Ancillary (enter results) 05/09 13:52 Order name: Troponin (Emerg Dept Use Only); Complete Time: 14:45 EDMS 05/09 13:52 Order name: NT PRO-BNP; Complete Time: 14:45 EDMS 05/09 13:52 Order name: Magnesium; Complete Time: 14:45 EDMN 05/09 14:01 Order name: Urine Dipstick-Ancillary; Complete Time: 14:45 EDMS 05/09 14:41 Order name: CT; Complete Time: 14:45 EDMN 05/09 14:41 Order name: RAD; Complete Time: 14:45 EDMN 05/09 14:47 Order name: Urine Culture [facility] 05/09 13:13 Order name: Cardiac monitoring; Complete Time: 13:15 [facility] 05/09 13:13 Order name: EKG - Nurse/Tech; Complete Time: 13:38 [facility] 05/09 13:13 Order name: O2 Per Protocol; Complete Time: 13:15 [facility] 05/09 13:13 Order name: O2 Sat Monitoring; Complete Time: 13:15 [facility] Administered Medications: 13:20 Drug: NS 0.9% 1000 ml Route: IV; Rate: 1 bolus; Site: right antecubital; ca1 15:58 Drug: Rocephin 1 grams Route: IV; Rate: per protocol; Site: right antecubital; ca1 16:14 Follow up: Response: No adverse reaction; IV Status: Completed infusion ca1 16:30 Follow up: Response: No adverse reaction; IV Status: Completed infusion ca1 Disposition: 05/09/19 15:08 Discharged to Home. Impression: Abdominal tenderness, Vomiting, Urinary tract infection, site not specified. - Condition is Stable. - Discharge Instructions: Abdominal Pain, Adult, Dysuria, Nausea and Vomiting, Adult, Urinary Tract Infection, Adult, Urinary Tract Infection, Adult, [id number], Abdominal Pain, Adult, Pupd-li-[id number]. - Prescriptions for Bentyl 20 mg Oral Tablet - take 1 tablet by ORAL route every 6 hours As needed; 20 tablet. Cipro 250 mg Oral Tablet - take 1 tablet by ORAL route every 12 hours; 14 tablet. Zofran 4 mg Oral Tablet - take 1 tablet by ORAL route every 12 hours As needed; 14 tablet. Pepcid 20 mg Oral Tablet - take 1 tablet by ORAL route every 12 hours for 10 days; 20 tablet. - Medication Reconciliation Form, Thank You Letter, Antibiotic Education, Prescription Opioid Use, Work release form form. - Follow up: Oliva Long MD; When: 2 - 3 days; Reason: Recheck today's complaints, Continuance of care, Re-evaluation by your physician. - Problem is new. - Symptoms have improved. Signatures: Dispatcher [employer] Jose Rodriguez MD MD cha Leal, Jahala, RN RN jl7 Shelly Cedillo RN RN ca1 Corrections: (The following items were deleted from the chart) 16:22 15:08 05/09/2019 15:08 Discharged to Home. Impression: Abdominal tenderness; Vomiting; ca1 Urinary tract infection, site not specified. Condition is Stable. Forms are Medication Reconciliation Form, Thank You Letter, Antibiotic Education, Prescription Opioid Use. Follow up: Oliva Long; When: 2 - 3 days; Reason: Recheck today's complaints, Continuance of care, Re-evaluation by your physician. Problem is new. Symptoms have improved. harrison
--- NOTE | 2019-05-09 15:10 | ER ---
Nurse's Notes [facility] Name: Prisca Hernandez Age: 53 yrs Sex: Female : 1965 Arrival Date: 05/09/2019 Time: 12:18 Bed 15 Private MD: Oliva Long K Diagnosis: Abdominal tenderness;Vomiting;Urinary tract infection, site not specified Presentation: 05/09 13:04 Presenting complaint: Patient states: reports N/V since Wednesday, right low back pain jl7 since last night, denies diarrhea, Dr. Long sent pt with note "Pt c RLQ abd pain; please eval in ER, CT, labs \\T\\ IVF if needed.". Transition of care: patient was received from another setting of care (ambulatory primary care physician practice), Dr. Long. Onset of symptoms was May 07, 2019. Risk Assessment: Do you want to hurt yourself or someone else? Patient reports no desire to harm self or others. Initial Sepsis Screen: Does the patient meet any 2 criteria? No. Patient's initial sepsis screen is negative. Does the patient have a suspected source of infection? No. Patient's initial sepsis screen is negative. Care prior to arrival: None. 13:04 Method Of Arrival: Ambulatory jl7 13:04 Acuity: ROGER 3 jl7 Triage Assessment: 13:09 General: Appears in no apparent distress. uncomfortable, Behavior is calm, cooperative, jl7 appropriate for age. Pain: Complains of pain in right low back Pain currently is 6 out of 10 on a pain scale. GI: Reports nausea, vomiting. 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 - Coronavirus screen:: The patient has NOT traveled to [place], [place], or [place] in the past 14 days. Proceed with normal triage process as indicated. - Social history:: Smoking status: Patient denies any tobacco usage or history of. - Family history:: not pertinent. - Ebola Screening: : No symptoms or risks identified at this time. Screenin:14 Abuse screen: Denies threats or abuse. Denies injuries from another. Nutritional ca1 screening: No deficits noted. Tuberculosis screening: No symptoms or risk factors identified. Fall Risk IV access (20 points). Assessment: 13:14 General: Appears in no apparent distress. comfortable, Behavior is calm, cooperative, ca1 appropriate for age. Pain: Complains of pain in right upper quadrant and right lower quadrant Pain radiates to right mid back and right low back Pain currently is 7 out of 10 on a pain scale. Quality of pain is described as crampy, Pain began 1 day ago. Is intermittent. Neuro: Level of Consciousness is awake, alert, obeys commands, Oriented to person, place, time, situation, Appropriate for age. Cardiovascular: Heart tones S1 S2 present Capillary refill < 3 seconds Patient's skin is warm and dry. Respiratory: Airway is patent Respiratory effort is even, unlabored, Respiratory pattern is regular, symmetrical, Breath sounds are clear bilaterally. GI: Abdomen is round non-distended, Bowel sounds present X 4 quads. Abd is soft X 4 quads Abdomen is tender to palpation in right lower quadrant Reports nausea, vomiting, since last night. : Reports urgency, urinary frequency. EENT: No signs and/or symptoms were reported regarding the EENT system. Derm: Skin is intact, is healthy with good turgor, Skin is pink, warm \\T\\ dry. Musculoskeletal: Circulation, motion, and sensation intact. Capillary refill < 3 seconds. 13:52 Reassessment: Patient appears in no apparent distress at this time. Patient and/or ca1 family updated on plan of care and expected duration. Pain level reassessed. Patient is alert, oriented x 3, equal unlabored respirations, skin warm/dry/pink. 14:55 Reassessment: Patient appears in no apparent distress at this time. Patient and/or ca1 family updated on plan of care and expected duration. Pain level reassessed. Patient is alert, oriented x 3, equal unlabored respirations, skin warm/dry/pink. 15:59 Reassessment: Patient appears in no apparent distress at this time. Patient is alert, ca1 oriented x 3, equal unlabored respirations, skin warm/dry/pink. Kept for observation after IV antibiotics. Vital Signs: 13:09 BP 169 / 94; Pulse 66; Resp 17 S; Temp 97.9(O); Pulse Ox 100% on R/A; Weight 84.82 kg jl7 (R); Height 5 ft. 7 in. (170.18 cm) (R); Pain 6/10; 13:52 BP 136 / 90; Pulse 64; Resp 17 S; Pulse Ox 99% on R/A; ca1 14:30 BP 149 / 93; Pulse 70; Resp 15 S; Pulse Ox 100% on R/A; ca1 15:30 BP 148 / 85; Pulse 64; Resp 16 S; Pulse Ox 100% on R/A; ca1 13:09 Body Mass Index 29.29 (84.82 kg, 170.18 cm) jl7 ED Course: 12:18 Patient arrived in ED. mr 12:19 Oliva Long MD is Private Physician. mr 12:36 Jose Cleaning MD is Attending Physician. harrison 12:57 Shelly Cedillo, MARKEL is Primary Nurse. ca1 13:07 Triage completed. jl7 13:09 Arm band placed on right wrist. jl7 13:14 Patient has correct armband on for positive identification. Placed in gown. Bed in low ca1 position. Call light in reach. Side rails up X 1. nurse monitoring on. Pulse ox on. NIBP on. Warm blanket given. 13:14 No provider procedures requiring assistance completed. Initial lab(s) drawn, by nm, ca1 sent to lab. Inserted saline lock: 20 gauge in right antecubital area, using aseptic technique. Blood collected. 13:45 EKG done, by ED staff, reviewed by Jose Cleaning MD. tc 15:08 Oliva Long MD is Referral Physician. harrison 16:22 IV discontinued, intact, bleeding controlled, No redness/swelling at site. Pressure ca1 dressing applied. Administered Medications: 13:20 Drug: NS 0.9% 1000 ml Route: IV; Rate: 1 bolus; Site: right antecubital; ca1 15:58 Drug: Rocephin 1 grams Route: IV; Rate: per protocol; Site: right antecubital; ca1 16:14 Follow up: Response: No adverse reaction; IV Status: Completed infusion ca1 16:30 Follow up: Response: No adverse reaction; IV Status: Completed infusion ca1 Outcome: 15:08 Discharge ordered by . harrison 16:22 Discharged to home ambulatory, with family. ca1 16:22 Condition: stable 16:22 Discharge instructions given to patient, Instructed on discharge instructions, follow up and referral plans. medication usage, Demonstrated understanding of instructions, follow-up care, medications, Prescriptions given X 4. 16:22 Patient left the ED. ca1 Signatures: Jose Cleaning MD MD cha Rivera, Kristel mr Ashwin, Ethel, air hose coupler EKG Ttc Jane Díaz RN RN jl7 Shelly Cedillo RN RN ca1
[2019-05-09] MEDS ORDERED: CEFTRIAXONE/SWI 1gm 1 GM/10 ML SYR ONE (15:55)
--- NOTE | 2019-05-09 18:44 | EKG ---
Test Date: 2019-05-09 Test Time: 13:38:45 Concrete Paver: GALINA MEASUREMENT RESULTS: Intervals: Rate: 58 IA: 148 QRSD: 78 QT: 410 QTc: 402 Stephens: P: 17 IA: 148 QRS: 41 T: 44 INTERPRETIVE STATEMENTS: Sinus bradycardia Otherwise normal ECG Compared to ECG 12/28/2018 22:26:09 Sinus rhythm no longer present Electronically Signed On 05-09-19 18:44:09 ENTRY LEVEL ACCOUNT MANAGER by Dick Cheema
[2019-05-11 08:33] VITALS: TEMP 97.9
[2019-05-11 08:39] VITALS: BP 148/85; O2SAT 100
== END 2019-05-09 16:22 | disposition home or self-care (01) ==
LOC: ER 12:15
DX: N39.0 Urinary tract infection, site not specified (principal); R11.10 Vomiting, unspecified; I10 Essential (primary) hypertension; E78.00 Pure hypercholesterolemia, unspecified
CPT/HCPCS: 96365; 93005; 87088; 85025; 87086; 80048; 36415; 83735; 85610; 80076; 81003; 84484; 83690; 83880; 74177; 71045; 99284; Q9967; J0696; J7030

== ENCOUNTER 2019-06-14 10:40 | Emergency (ER) | payer BC ==
--- OUTSIDE RECORDS SUMMARY | 2019-06-14 10:42 | XMS REPORT ---
:1965 [facility] [address] Ramirez [address] [place] [id number] Care Team Providers Name Role Phone JANETTE PENA Unavailable Unavailable Problems This patient has no known problems. Allergies, Adverse Reactions, Alerts This patient has no known allergies or adverse reactions. Medications This patient has no known medications. Results Test Description Test Time Test Comments Text Results Atomic Results Result Comments MM, STEREOTACTIC 2017-07-29 Reason for Addendum BeginsMRN#: BIOPSY, BREAST, 10:16:00 Exam:->Microcalifications [id number]: RIGHT 07/29/2017 Orlando Jansen M.D. Pathology results are now available and demonstrate fibroadenoma with calcifications.This is concordant with the imaging findings. Addendum EndsMRN#: [id number] - MM, STEREOTACTIC BIOPSY, BREAST, RIGHTSTEREOTACTIC GUIDED [...] correct location, four specimens were obtained using [employer] device. A clip was inserted into the [...] procedure complications. Orlando Jansen M.D. pth/:07/26/2017 13:05:30 Manager Reimbursement: Anastacia Shoemaker RT(R)(M), [facility] [id number] UE EXAM 2017-07-27 Surgical Pathology 16:52:00 Report Case: [id number] Authorizing Provider: Orlando Jansen MD Collected: 07/26/2017 1345 Ordering Location: [facility] Received: 07/26/2017 1349 Pathologist: Shirley Ortiz MD Specimen: Breast, Right, RIGHT UPPER OUTER BREAST CALCIFICATIONS A. 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 [id number] x 1 Questionable sclerosing lesionRight upper outer [...] Performed. MM, DIGITAL, 2017-07-26 Right breast calcifications #[id number] UNILATERAL, 13:06:00 - MM, DIGITAL, CONFER JACKSON, [...] pathology results. Orlando Jansen M.D. pth/:07/26/2017 13:06:15 Manager Reimbursement: Anastacia SHETTY (R)), [facility] Mammogram BI-RADS: Post-procedure mammogram for marker placement [id number] ORRO MAMMO, 2017-07-26 Reason for exam:->Right #[id number] SPECIMEN, 13:06:00 breast calcifications - MM, MAMMO, SPECIMEN, RADIOGRAPH, RIGHT RADIOGRAPH, RIGHTSPECIMEN RIGHT BREAST: 07/26/2017Four stereotactic guided biopsy specimens were imaged for the area of calcifications located in the right breast at 10 o'clock middle depth. IMPRESSION: SPECIMENThe imaged specimens includes the calcifications. Orlando Jansen M.D. pth/:07/26/2017 13:06:46 Manager Reimbursement: Anastacia SHETTY (R)), [facility] [id number]
--- OUTSIDE RECORDS SUMMARY | 2019-06-14 10:43 | XMS REPORT | Summary of Care ---
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 naproxen sodium Take 1 tablet by mouth 30 tablet 0 Active (ANAPROX DS) 550 mg 2 (two) times daily 8 tablet with meals. sucralfate 1 gram Take 1 tablet by mouth 30 tablet 0 Active tablet before meals and at 8 bedtime. atenolol 25 mg tablet Take 25 mg by mouth. 0 Active traZODONE 50 mg tablet 0 Active 8 DULoxetine 30 mg duloxetine 30 mg 0 Active capsule capsule,delayed release losartan 50 mg tablet 0 Active 8 atorvastatin 20 mg 0 Active tablet 8 celecoxib 200 mg celecoxib 200 mg 0 Active capsule capsule omeprazole 10 mg Take 10 mg by mouth. 0 Active capsule ALPRAZolam (XANAX) Take 0.25 mg by mouth 0 Active 0.25 mg tablet 2 (two) times daily as needed. methylPREDNISolone 4 methylprednisolone 4 0 Active mg tablets mg tablets in a dose pack topiramate 50 mg Take 1 tablet by mouth 60 tablet 3 Active tablet 2 (two) times daily. 9 documented as of this encounter (statuses as of 06/01/2019) Active Problems Not on filedocumented as of this encounter (statuses as of 06/01/2019) Social History Tobacco Use Types Packs/Day Years Used Date Never Smoker Alcohol Use Drinks/Week oz/Week Comments Yes socially Sex Assigned at Date Recorded Not on file Job Start Date Occupation Industry Not on file Not on file Not on file Travel History Travel Start Travel End No recent travel history available. 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 METABOLIC PANEL LAB Routine Abdominal pain, 06/01/2019 12:54 PM ([id number]) epigastric MASTER SCHEDULER AMYLASE LAB Routine Abdominal pain, 06/01/2019 12:54 PM epigastric MASTER SCHEDULER LIPASE LAB Routine Abdominal pain, 06/01/2019 12:54 PM epigastric MASTER SCHEDULER CBC WITH DIFFERENTIAL LAB Routine Abdominal pain, 06/01/2019 12:54 PM epigastric MASTER SCHEDULER BILI UNCONJUGATED/BILI LAB Routine Abdominal pain, 06/01/2019 12:54 PM CONJUG epigastric MASTER SCHEDULER Name Type Priority Associated Diagnoses Order Schedule CBC WITH DIFF LAB Routine Abdominal pain, Expected: 06/01/2019, epigastric Expires: 05/31/2020 COMP. METABOLIC PANEL LAB Routine Abdominal pain, Expected: 06/01/2019, ([id number]) epigastric Expires: 05/31/2020 AMYLASE LAB Routine Abdominal pain, Expected: 06/01/2019, epigastric Expires: 05/31/2020 LIPASE LAB Routine Abdominal pain, Expected: 06/01/2019, epigastric Expires: 05/31/2020 BILI UNCONJUGATED/BILI LAB Routine Abdominal pain, Expected: 06/01/2019, CONJUG epigastric Expires: 05/31/2020 Health Maintenance Due Date Last Done Comments HEPATITIS C (HCV) SCREEN 1965 DTaP,Tdap,and Td Vaccines (1 - 1975 Tdap) PAP SMEAR 1985 Breast Cancer Screening 2004 (MAMMOGRAM) COLONOSCOPY 2014 Zoster Recombinant Vaccine 2014 (SHINGRIX) (1 of 2) INFLUENZA VACCINE (#1) 2018 PNEUMOCOCCAL 0-64 YEARS COMBINED Aged Out No longer eligible based on SERIES patient's age to complete this topic documented as of this encounter Results Not on filedocumented in this encounter Visit Diagnoses Diagnosis Abdominal pain, epigastric - Primary documented in this encounter Insurance Payer Benefit Plan Subscriber ID Effective Dates Phone Address Type / Group BCBS OF [facility] [id number] 2017- [phone] [address] PPO/POS [place] - OUT OF 7 [id number] [place] [address] Guarantor Name Account Type Relation to Date of Phone Billing Patient Address Prisca Hernandez Personal/Family Self 1965 [address] (Home) [facility] [phone] [place] [address] (Work) documented as of this encounter
--- OUTSIDE RECORDS SUMMARY | 2019-06-14 10:43 | XMS REPORT | Summary of Care ---
:1965 Author Organization [facility] Address [address] [place] [address] Care Team Providers Name Role Phone Oliva Long Primary Care Provider Reason for Referral MRI/CAT Scan (STAT) Status Reason Specialty Diagnoses / Referred By Referred To Procedures Contact Contact Closed Diagnostic Diagnoses Right lower quadrant pain Nausea Abdominal pain, unspecified abdominal location Right lower quadrant pain Nausea Jin Becerra Radiology Procedures CT ABDOMEN PELVIS W CONTRAST CHG CT SCAN,ABDOMENT AND PELVIS,W CONTRAST [place] [address] Reason for Visit MRI/CAT Scan (STAT) Status Reason Specialty Diagnoses / Referred By Referred To Procedures Contact Contact Closed Diagnostic Diagnoses Right lower quadrant pain Nausea Abdominal pain, unspecified abdominal location Right lower quadrant pain Nausea Jin Becerra Radiology Procedures CT ABDOMEN PELVIS W CONTRAST CHG CT SCAN,ABDOMENT AND PELVIS,W CONTRAST MD [address] [place] [id number] Encounter Details Date Type Department Care Team Description 06/01/2019 Hospital Encounter [facility] Jin Becerra Arrived [place] [facility] Tomography [address] [place] [address] [place] [id number] [place] [address] [id number] Allergies No Known Allergiesdocumented as of this encounter (statuses as of 06/02/2019) Medications Medication Sig Dispensed Refills Start End [...] as of this encounter (statuses as of 06/02/2019) Active Problems Not on filedocumented as of this encounter (statuses as of 06/02/2019) Social History Tobacco Use Types Packs/Day Years [...] filedocumented in this encounter Plan of Treatment Health Maintenance Due Date Last Done Comments [...] this topic documented as of this encounter Procedures Procedure Name Priority Date/Time Associated Diagnosis Comments CT ABDOMEN PELVIS W STAT 06/01/2019 2:23 Right lower quadrant Results for this CONTRAST PM [employer] pain procedure are in Nausea the results Abdominal pain, section. unspecified abdominal location HB CREATININE BLOOD Routine 06/01/2019 2:23 Abdominal pain, Results for this PM [employer] unspecified procedure are in abdominal location the results section. documented in this encounter Results CT ABDOMEN PELVIS W CONTRAST (06/01/2019 2:23 PM [employer] MATERIAL) Specimen Narrative Performed At CT Abdomen and Pelvis with oral and intravenous contrast. PACS/VR/DOSE CLINICAL HISTORY: No clinical history provided. DOSE: Up-to-date CT equipment and radiation dose reduction techniques were employed. CTDIvol: 8.82 mGy. DLP: 463 mGy-cm. TECHNIQUE : Contiguous axial imaging from the level of the lung bases through the pubic symphysis were performed after the uncomplicated administration of Omnipaque contrast material. Oral contrast was also administered. Coronal and sagittal reconstructions were obtained. Auto mA and/or iterative reconstruction were used to reduce radiation dose. FINDINGS: Comparison made with 04/19/2017 study. Lower lungs: Clear. No pleural effusion or pericardial effusion. Liver, Gallbladder and Spleen: Liver measures 14.6 cm and anterior subcapsular right lobe of the liver showed 15 mm low-density lesion which could be a cyst, unchanged compared with March 2017 study. There is another tiny 4 mm cyst in the right upper lobe. Spleen is 10.8 x 5.7 cm. 2 low-density lesions are seen in the upper pole of the spleen, 11 mm size round shape and the second lesion is subcentimeter but irregular in shape, unchanged. No calcified gallstones. Biliary ducts and the pancreatic duct appear of normal size. Peritoneum: No free air or free fluid. No lymphadenopathy. Pancreas and Adrenals: Unremarkable pancreas and adrenal glands. Kidneys and Ureters: No visible calculi in the renal collecting systems. Mild fullness in the right ureter noted which could be due to extrinsic pressure by right deviated uterus. Previously visualized numerous cysts surrounding the lower pole of the left kidney again noted, largest is 6.8 cm in size. Several additional smaller cysts are seen in the middle and upper pole of the left kidney and lower pole of the right kidney. Vessels: No significant atherosclerosis or abdominal aortic aneurysm. Retroperitoneum: No abnormal fluid or lymphadenopathy. Bowel: No acute findings. Mild diverticulosis of the sigmoid colon noted without any acute changes. Appendix is not definitely visualized, however, no CT evidence of acute appendicitis are appreciated. Bladder and Reproductive Organs: Small fibroids suspected in the uterus. No adnexal masses. No free fluid appreciated in the cul-de-sac. No gross pathology in the unopacified urinary bladder. Bones: Lower thoracic degenerative spondylosis. No aggressive bone lesions are compression deformity in the lower thoracic or lumbar vertebral bodies. No signs of AVN in the femoral heads. Soft tissues: Unremarkable. CONCLUSION: 1. No acute intra-abdominal or pelvic abnormalities. 2. Numerous large cysts noted at the lower pole of the left kidney, additional smaller cysts in the left kidney as well as the right kidney noted unchanged when compared with March 2017 study. 3. Cystic lesions in the liver and upper pole of the spleen, unchanged. 4. Small uterine fibroids suspected. No adnexal masses. Procedure Note [facility], Radiant Results Inft User - 06/01/2019 2:36 PM SEW[employer] AND CUT[employer] FINGER BUFF MATERIAL CT Abdomen and Pelvis with oral and intravenous contrast. CLINICAL HISTORY: No clinical history provided. DOSE: Up-to-date CT equipment and radiation dose reduction techniques were employed. CTDIvol: 8.82 mGy. DLP: 463 mGy-cm. TECHNIQUE : Contiguous axial imaging from the level of the lung bases through the pubic symphysis were performed after the uncomplicated administration of Omnipaque contrast material. Oral contrast was also administered. Coronal and sagittal reconstructions were obtained. Auto mA and/or iterative reconstruction were used to reduce radiation dose. FINDINGS: Comparison made with 04/19/2017 study. Lower lungs: Clear. No pleural effusion or pericardial effusion. Liver, Gallbladder and Spleen: Liver measures 14.6 cm and anterior subcapsular right lobe of the liver showed 15 mm low-density lesion which could be a cyst, unchanged compared with March 2017 study. There is another tiny 4 mm cyst in the right upper lobe. Spleen is 10.8 x 5.7 cm. 2 low-density lesions are seen in the upper pole of the spleen, 11 mm size round shape and the second lesion is subcentimeter but irregular in shape, unchanged. No calcified gallstones. Biliary ducts and the pancreatic duct appear of normal size. Peritoneum: No free air or free fluid. No lymphadenopathy. Pancreas and Adrenals: Unremarkable pancreas and adrenal glands. Kidneys and Ureters: No visible calculi in the renal collecting systems. Mild fullness in the right ureter noted which could be due to extrinsic pressure by right deviated uterus. Previously visualized numerous cysts surrounding the lower pole of the left kidney again noted, largest is 6.8 cm in size. Several additional smaller cysts are seen in the middle and upper pole of the left kidney and lower pole of the right kidney. Vessels: No significant atherosclerosis or abdominal aortic aneurysm. Retroperitoneum: No abnormal fluid or lymphadenopathy. Bowel: No acute findings. Mild diverticulosis of the sigmoid colon noted without any acute changes. Appendix is not definitely visualized, however, no CT evidence of acute appendicitis are appreciated. Bladder and Reproductive Organs: Small fibroids suspected in the uterus. No adnexal masses. No free fluid appreciated in the cul-de-sac. No gross pathology in the unopacified urinary bladder. Bones: Lower thoracic degenerative spondylosis. No aggressive bone lesions are compression deformity in the lower thoracic or lumbar vertebral bodies. No signs of AVN in the femoral heads. Soft tissues: Unremarkable. CONCLUSION: 1. No acute intra-abdominal or pelvic abnormalities. 2. Numerous large cysts noted at the lower pole of the left kidney, additional smaller cysts in the left kidney as well as the right kidney noted unchanged when compared with March 2017 study. 3. Cystic lesions in the liver and upper pole of the spleen, unchanged. 4. Small uterine fibroids suspected. No adnexal masses. Performing Organization Address [facility]/Zipcode Phone Number PACS/VR/DOSE POCT CREATININE (06/01/2019 2:23 PM [employer]) POCT Creatinine 1.1 0.5 - 1.1 mg/dL [facility] Specimen Blood - VENOUS Performing Organization Address City/State/Zipcode Phone Number [facility] CLIA: [id number], [address] [place] [address] documented in this encounter Visit Diagnoses Diagnosis Right lower quadrant pain Abdominal pain, right lower quadrant Nausea Nausea alone Abdominal pain, unspecified abdominal location documented in this encounter Administered Medications Medication Order MAR Action Action Date Dose Rate Site iohexol (OMNIPAQUE 350 BULK) 25 mL Given 06/01/2019 1:10 PM [employer] 25 mL 25 mL, Oral, ONCE, 1 dose, Emma 06/01/19 at 1315, Routine iohexol (OMNIPAQUE 350 BULK-150 mL) Given 06/01/2019 2:20 PM [employer] MAT[employer] 120 mL injection 120 mL 120 mL, Intravenous, ONCE, 1 dose, Emma 06/01/19 at 1430, Routine documented in this encounter Insurance Payer Benefit Plan Subscriber ID Effective Dates Phone Address Type / Group BCBS OF [facility] [id number] 2017-[place] [phone] [address] PPO/POS [place] - OUT OF 7 [id number] [place] [address] Guarantor Name Account Type Relation to Date of Phone Billing Patient Address Prisca Hernandez Personal/Family Self 1965 [address] (Home) [facility] [phone] [place] [address] (Work) documented as of this encounter
--- OUTSIDE RECORDS SUMMARY | 2019-06-14 10:43 | XMS REPORT | Summary of Care ---
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 Assistant Visit Phlebotomy Jin Becerra MD [address] [place] [address] Pob, Adc Lab Main 06/01/2019 Appointment Radiology Jin Becerra MD [address] [place] [address] Health Maintenance Due Date Last Done Comments [...] Procedure Name Priority Date/Time Associated Diagnosis Comments ASSIGNMENT OF BENEFITS Routine 06/01/2019 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
[2019-06-14] MEDS ORDERED: HYDROCODONE/APAP 10/325 TAB ONE (11:15)
[2019-06-14] MEDS ORDERED: KETOROLAC 30 MG/ML INJ ONE (11:15)
--- NOTE | 2019-06-14 11:15 | ER ---
Nurse's Notes [facility] Name: Prisca Hernandez Age: 54 yrs Sex: Female : 1965 Arrival Date: 06/14/2019 Time: 10:43 Bed 14 Private MD: Oliva Long K Diagnosis: Radiculopathy, cervical region Presentation: 06/13 11:00 Chief complaint: Patient states: pain to R side of neck that radiates to R shoulder ss blade and down R arm. Began 1 week ago. Coronavirus screen: The patient has NOT traveled to a country currently being monitored by the [facility] within the last 14 days. Proceed with normal triage procedures. Ebola Screen: Patient denies exposure to infectious person. Patient denies travel to an Ebola-affected area in the 21 days before illness onset. Initial Sepsis Screen: Does the patient meet any 2 criteria? No. Patient's initial sepsis screen is negative. Does the patient have a suspected source of infection? No. Patient's initial sepsis screen is negative. Risk Assessment: Do you want to hurt yourself or someone else? Patient reports no desire to harm self or others. 11:00 Method Of Arrival: Ambulatory ss 11:00 Acuity: ROGER 4 ss 11:24 Onset of symptoms was June 14, 2019. 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 - Social history:: Smoking status: Patient denies any tobacco usage or history of. Screenin:05 Abuse screen: Denies threats or abuse. Denies injuries from another. Nutritional ca1 screening: No deficits noted. Tuberculosis screening: No symptoms or risk factors identified. Fall Risk None identified. Assessment: 11:05 General: Appears in no apparent distress. comfortable, Behavior is calm, cooperative, ca1 appropriate for age. Pain: Complains of pain in right posterior aspect of neck and right arm, R shoulder Pain currently is 8 out of 10 on a pain scale. Pain began 2-3 days ago. Neuro: Level of Consciousness is awake, alert, obeys commands, Oriented to person, place, time, situation, Appropriate for age. Derm: Skin is intact, is healthy with good turgor, Skin is pink, warm \T\ dry. Musculoskeletal: Circulation, motion, and sensation intact. Capillary refill < 3 seconds, Range of motion: intact in all extremities. 11:32 Reassessment: Patient appears in no apparent distress at this time. Patient and/or ca1 family updated on plan of care and expected duration. Pain level reassessed. Patient is alert, oriented x 3, equal unlabored respirations, skin warm/dry/pink. Patient states feeling better. Vital Signs: 11:00 BP 119 / 82; Pulse 93; Resp 16; Temp 97.8(O); Pulse Ox 99% on R/A; ss 11:32 BP 119 / 82; Pulse 88; Resp 16 S; Pulse Ox 100% on R/A; Pain 3/10; ca1 11:38 Pain 3/10; ca1 ED Course: 10:43 Patient arrived in ED. mr 10:43 Oliva Long MD is Private Physician. mr 10:52 Claribel Cosme, KARLY is [facility]. kb 10:52 Benjamin Francois MD is Attending Physician. kb 10:59 Shelly Cedillo, MARKEL is Primary Nurse. ca1 11:01 Triage completed. ss 11:02 Arm band placed on right wrist. ss 11:05 Patient has correct armband on for positive identification. Bed in low position. Call ca1 light in reach. Side rails up X 1. Pulse ox on. NIBP on. 11:05 No provider procedures requiring assistance completed. Patient did not have IV access ca1 during this emergency room visit. Administered Medications: 11:14 Drug: [place] 10 mg-325 mg 1 tabs {Note: rass - 0.} Route: PO; ca1 11:38 Follow up: Pain 3/10 Adult; Response: No adverse reaction; Pain is decreased; RASS: ca1 Alert and Calm (0) 11:16 Drug: TORadol 30 mg Route: IM; Site: right gluteus; ca1 11:38 Follow up: Response: No adverse reaction; Pain is decreased ca1 Outcome: 11:14 Discharge ordered by . kb 11:38 Discharged to home ambulatory, with family. ca1 11:38 Condition: stable 11:38 Discharge instructions given to patient, Instructed on discharge instructions, follow up and referral plans. medication usage, Demonstrated understanding of instructions, follow-up care, medications, Prescriptions given X 2. 11:39 Patient left the ED. ca1 Signatures: Claribel Cosme, KARLY REAGAN-Kristel Skaggs mr Yaz Henderson, RN RN ss Shelly Cedillo RN RN ca1
--- NOTE | 2019-06-14 11:15 | EDPHYS ---
Physician Documentation [facility] Name: Prisca Hernandez Age: 54 yrs Sex: Female : 1965 Arrival Date: 06/14/2019 Time: 10:43 Bed 14 Private MD: Oliva Long K ED Physician Benjamin Francois HPI: 06/13 11:12 This 54 yrs old Female presents to ER via Ambulatory with complaints of neck kb pain. 11:12 The patient has not experienced similar symptoms in the past. The patient has not kb recently seen a physician. 11:12 The patient or guardian complains of pain, that is acute, tenderness. The symptoms are kb located on the right posterior aspect of neck. Onset: The symptoms/episode began/occurred 1 week(s) ago. Context: The problem was sustained at home, The neck injury/problem resulted from from unknown cause. Associated signs and symptoms: The patient has no apparent associated signs or symptoms, Pertinent negatives: fever, nausea, tingling, The patient denies any alcohol use. The patient is not apparently intoxicated. No neurological symptoms were experienced by the patient prior to arrival in the emergency department. The pain radiates to the right arm. Modifying factors: The symptoms are alleviated by nothing. the symptoms are aggravated by nothing. Severity of symptoms: At their worst the symptoms were moderate, in the emergency department the symptoms are unchanged. 11:13 Pt reports pain to right side of neck for a week, started radiating down right arm 2 kb days ago. 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 - Social history:: Smoking status: Patient denies any tobacco usage or history of. ROS: 11:11 Constitutional: Negative for fever, chills, and weight loss, ENT: Negative for injury, kb pain, and discharge, Cardiovascular: Negative for chest pain, palpitations, and edema, Respiratory: Negative for shortness of breath, cough, wheezing, and pleuritic chest pain, Abdomen/GI: Negative for abdominal pain, nausea, vomiting, diarrhea, and constipation, Back: Negative for injury and pain, Skin: Negative for injury, rash, and discoloration, Neuro: Negative for headache, weakness, numbness, tingling, and seizure. 11:11 Neck: Positive for pain with movement, pain at rest. 11:11 MS/extremity: Positive for pain, of the right arm. Exam: 11:11 Constitutional: This is a well developed, well nourished patient who is awake, alert, kb and in no acute distress. Head/Face: Normocephalic, atraumatic. ENT: Nares patent. No nasal discharge, no septal abnormalities noted. Tympanic membranes are normal and external auditory canals are clear. Oropharynx with no redness, swelling, or masses, exudates, or evidence of obstruction, uvula midline. Mucous membranes moist. Chest/axilla: Normal chest wall appearance and motion. Nontender with no deformity. No lesions are appreciated. Cardiovascular: Regular rate and rhythm with a normal S1 and S2. No gallops, murmurs, or rubs. Normal PMI, no JVD. No pulse deficits. Respiratory: Lungs have equal breath sounds bilaterally, clear to auscultation and percussion. No rales, rhonchi or wheezes noted. No increased work of breathing, no retractions or nasal flaring. Abdomen/GI: Soft, non-tender, with normal bowel sounds. No distension or tympany. No guarding or rebound. No evidence of tenderness throughout. Back: No spinal tenderness. No costovertebral tenderness. Full range of motion. Skin: Warm, dry with normal turgor. Normal color with no rashes, no lesions, and no evidence of cellulitis. MS/ Extremity: Pulses equal, no cyanosis. Neurovascular intact. Full, normal range of motion. Neuro: Awake and alert, GCS 15, oriented to person, place, time, and situation. Cranial nerves II-XII grossly intact. Motor strength 5/5 in all extremities. Sensory grossly intact. Cerebellar exam normal. Normal gait. 11:11 Neck: External neck: tenderness, that is moderate, of the right posterior aspect of neck, C-spine: appears grossly normal, no vertebral tenderness, no crepitus. Vital Signs: 11:00 BP 119 / 82; Pulse 93; Resp 16; Temp 97.8(O); Pulse Ox 99% on R/A; ss 11:32 BP 119 / 82; Pulse 88; Resp 16 S; Pulse Ox 100% on R/A; Pain 3/10; ca1 11:38 Pain 3/10; ca1 MDM: 10:52 Patient medically screened. kb 11:10 Data reviewed: vital signs, nurses notes. Data interpreted: Pulse oximetry: on room air kb is 99 %. Interpretation: normal. 11:12 Counseling: I had a detailed discussion with the patient and/or guardian regarding: the kb historical points, exam findings, and any diagnostic results supporting the discharge/admit diagnosis, the need for outpatient follow up, a family practitioner, to return to the emergency department if symptoms worsen or persist or if there are any questions or concerns that arise at home. Administered Medications: 11:14 Drug: Wildwood 10 mg-325 mg 1 tabs {Note: rass - 0.} Route: PO; ca1 11:38 Follow up: Pain 3/10 Adult; Response: No adverse reaction; Pain is decreased; RASS: ca1 Alert and Calm (0) 11:16 Drug: TORadol 30 mg Route: IM; Site: right gluteus; ca1 11:38 Follow up: Response: No adverse reaction; Pain is decreased ca1 Disposition: 13:33 Co-signature as Attending Physician, Benjamin Francois MD I agree with the assessment and kdr plan of care. Disposition: 06/14/19 11:14 Discharged to Home. Impression: Radiculopathy, cervical region. - Condition is Stable. - Discharge Instructions: Cervical Radiculopathy, Sufw-ic-Vdga. - Prescriptions for Prednisone 20 mg Oral Tablet - take 1 tablet by ORAL route once daily for 5 days; 5 tablet. orphenadrine citrate 100 mg Oral Tablet Sustained Release - take 1 tablet by ORAL route 2 times per day As needed; 20 tablet. - Medication Reconciliation Form, Thank You Letter, Antibiotic Education, Prescription Opioid Use form. - Follow up: Emergency Department; When: As needed; Reason: Worsening of condition. Follow up: Private Physician; When: 2 - 3 days; Reason: Recheck today's complaints, Continuance of care, Re-evaluation by your physician. Signatures: Claribel Cosme, PLASMA PROCESSING TECHNICIAN-C PLASMA PROCESSING TECHNICIAN-CkBenjamin Gutierrez MD MD kdr Smirch, Shelby, RN RN ss Shelly Cedillo RN RN ca1 Corrections: (The following items were deleted from the chart) 11:39 11:14 06/14/2019 11:14 Discharged to Home. Impression: Radiculopathy, cervical region. ca1 Condition is Stable. Forms are Medication Reconciliation Form, Thank You Letter, Antibiotic Education, Prescription Opioid Use. Follow up: Emergency Department; When: As needed; Reason: Worsening of condition. Follow up: Private Physician; When: 2 - 3 days; Reason: Recheck today's complaints, Continuance of care, Re-evaluation by your physician. kb
[2019-06-14 11:46] VITALS: BP 119/82; TEMP 97.8
[2019-06-14 11:47] VITALS: O2SAT 100
== END 2019-06-14 11:39 | disposition home or self-care (01) ==
LOC: ER 10:40
DX: M54.12 Radiculopathy, cervical region (principal); I10 Essential (primary) hypertension
CPT/HCPCS: 96372; 99283

== ENCOUNTER 2020-03-25 08:55 | Emergency (ER) | payer BC ==
--- OUTSIDE RECORDS SUMMARY | 2020-03-25 09:47 | XMS REPORT | Clinical Summary ---
:1965 Author Organization [facility] Address [address] [place] [address] Care Team Providers Name Role Phone Pcp, Primary Care Provider Unavailable Allergies No Known [...] hours. . Active Problems Not on file Social History Tobacco Use Types Packs/Day Years Used Date Never Assessed Smokeless Tobacco: Never Used Alcohol Use Drinks/Week oz/Week Comments Yes occasional Sex Assigned at Date Recorded Not on file Last Filed Vital Signs Not on file Plan of Treatment Health Maintenance Due Date Last Done Comments BREAST CANCER SCREENING 1965 COLON CANCER SCREENING COLONOSCOPY 1965 CERVICAL CANCER SCREENING PAP ONLY (Age 21-65) 1985 LIPID PANEL 2009 INFLUENZA VACCINE (#1) 2019 Results Not on fileafter 03/25/2019 Insurance Payer Benefit Plan / Subscriber ID Effective Dates Phone Addre ss Type Group BLUE BCBS OS [id number] 2017-Presen [phone] [address] PPO CROSS/BLUE POS/PPO/EPO t 2 [facility] [id number]
--- OUTSIDE RECORDS SUMMARY | 2020-03-25 09:47 | XMS REPORT | Continuity of Care Document ---
:1965 Author Organization [facility] t Address [address] [place] [address] Care Team Providers Name Role Phone Pcp MD Primary Care Physician Unavailable Levon Lynn MD Attending Clinician Gricelda Krishnamurthy MD Attending Clinician Ratna GAMEZ Attending Clinician Unavailable NEFTALI PENA Attending Clinician Unavailable Problems This patient has no known problems. Allergies, Adverse Reactions, Alerts This patient has no known allergies or adverse reactions. Social History Social Habit Start Date Stop Date Quantity Comments Source Sex Assigned At [facility] Tobacco use and 2017-07-26 2017-07-26 Never used [facility] - exposure 00:00:00 00:00:00 [facility] Alcohol intake 2017-07-26 2017-07-26 [facility] drinker of [facility] - 00:00:00 00:00:00 alcohol (finding) [facility] Alcohol Comment 2017-07-26 2017-07-26 occasional [facility] kes - 00:00:00 00:00:00 [facility] Medications Ordered Filled Start Stop Current Ordering Indication Dosage Frequency Signature Comments Components Source Medication Medication Date Date Medication? Clinician (SIG) Name Name traZODone 2018- Yes 50mg QD Take [address] [facility] [address] [facility] (DESYREL) 4-30 [facility] - 50 MG 10:03: nightly. Medical tablet 11 Center topiramate 2018-0 Yes 50mg Q.5D Take [address] [facility] (TOPAMAX) 4-30 by mouth [facility] - 50 MG 10:03: (two) Medical tablet 11 times Center daily. omeprazole 20180 Yes 10mg QD Take [address] (PRILOSEC) 4-30 [facility] - 10 MG 10:03: daily. Medical capsule 11 Center eletriptan 20180 Yes 10mg Take [address] (RELPAX) 20 4-30 by mouth [facility] - MG tablet 10:03: once as Medic al 11 needed for Center Headaches Do NOT exceed eighty (80) mg in 24 hours. . venlafaxine 20180 Yes 50mg Q.5D Take [address] [facility] (EFFEXOR) 4-30 by mouth [facility] - 50 MG 10:03: (two) Medical tablet 10 times Center daily. atenolol 20180 Yes 25mg QD Take [address] [facility] (TENORMIN) 4-30 by [facility] - 25 MG 10:03: daily. Medical tablet 10 Center Procedures This patient has no known procedures. Plan of Care Planned Activity Planned Date Details Comments Source Future Scheduled 2019-11-[address] [facility] - Test 00:00:00 (#1) [code = [facility] INFLUENZA VACCINE (#1)] Future Scheduled [address] [facility] - Test 00:00:00 (procedure) [code = [facility] 15711446] Future Scheduled [address] [facility] - Test 00:00:00 malignant neoplasm Medical C enter of cervix (procedure) [code = 762682754] Future Scheduled [address] [facility] - Test 00:00:00 malignant neoplasm Medical C enter of breast (procedure) [code = 366035893] Future Scheduled [address] [facility] - Test 00:00:00 malignant neoplasm Medical C enter of colon (procedure) [code = 838377071] Encounters Start End Encounter Admission Attending Care Care Encounter Source Date/Time Date/Time Type Type Clinicians Facility Department ID 2019-12-25 2019-12-25 JOSIANE Solares [id number] 15:54:58 16:33:53 Visit Flakito Jean [id number] [place] [id number] Corinne [phone] [address] 2019-08-02 2019-08-02 Outpatient [facility] [address] [facility] 13:37:00 13:37:00 2018-11-30 2018-11-30 Office Barbie BARRAZA [id number] 13:56:13 16:56:02 Visit Marci woodard AMBULATOR 350.1.13.21 G Y [id number] [id number] 2018-11-30 2018-11-30 Office CHRISTI Segundo [id number] 13:54:47 15:30:29 Visit Merary AMBULATOR 350.1.13.21 Y [id number] [id number] Results Test Description Test Time Test Comments Results Result [facility] e Comments MM, STEREOTACTIC Reason for Addendum BeginsMRN#: BIOPSY, BREAST, 3 Exam:->[employer] [id number]: RIGHT 10:16:00 cations 07/29/2017 Orlando Jansen M.D. Pathology results are now available and demonstrate fibroadenoma with calcifications.This is concordant with the imaging findings. Addendum EndsMRN#: [id number] - MM, STEREOTACTIC BIOPSY, BREAST, RIGHTSTEREOTACTIC GUIDED [...] correct location, four specimens were obtained using Forsitec device. A clip was inserted into the [...] procedure complications. Orlando Jansen M.D. pth/:07/26/2017 13:05:30 [employer] Officer: Anastacia FRAUSTO)(M), [facility] [address] UE EXAM Surgical Pathology 1 Report 16:52:00 Case: [id number] Authorizing Provider: Orlando Jansen MD Collected: 07/26/2017 1343 Ordering Location: [facility] Received: 07/26/2017 1343 Pathologist: Shirley Ortiz MD Specimen: Breast, Right, RIGHT UPPER OUTER BREAST CALCIFICATIONS A. 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 34977 x 1 Questionable sclerosing lesionRight upper outer breast calcification.Specimen is received in formalin-filled container labeled with the patient's information and labeled "right upper outer breast calcification" and consists of four yellow-white breast core biopsies ranging in length from 0.9 to 2 cm. Specimen is entirely submitted A1. Ink code: Black. Specimen is entirely submitted A1. CG/bc A. Performed. MM, DIGITAL, 2017-06-29 Right breast MRN#: UNILATERAL, 0 calcifications [id number] - CONFER JACKSON, 13:06:00 MM, DIGITAL, MAMMO, RIGHT UNILATERAL, CONFER INCLUDING CAD JACKSON, MAMMO, RIGHT INCLUDING CADUNILATERAL RIGHT DIGITAL PROBLEM SOLVING MAMMOGRAM [...] pathology results. Orlando Jansen M.D. pth/:07/26/2017 13:06:15 Army Officer: Anastacia SHETTY (R)), [facility] Mammogram BI-RADS: Post-procedure mammogram for marker placement [id number] ORRO, MAMMO, 2017-06-29 Reason for MRN#: SPECIMEN, 0 exam:->Right [id number] - RADIOGRAPH, RIGHT 13:06:00 breast MM, MAMMO, SPECIMEN, calcifications RADIOGRAPH, RIGHTSPECIMEN RIGHT BREAST: 07/26/2017Four stereotactic guided biopsy specimens were imaged for the area of calcifications located in the right breast at 10 o'clock middle depth. IMPRESSION: SPECIMENThe imaged specimens includes the calcifications. Orlando Jansen M.D. pth/:07/26/2017 13:06:46 Army Officer: Anastacia SHERMAN (R)(Julio), [facility] [id number]
[2020-03-25 09:52] LABS: Absolute Lymphocytes (CBC) 0.9 K/uL (0.7-4.9); Basophils % 0.5 % (0-1.3); Hematocrit 38.1 % (36.0-45.0); MPV 8.7 fL (7.6-11.3); RBC Red Blood Cell Count 4.33 M/uL (3.86-4.86)
[2020-03-25 10:03] LABS: Albumin 3.7 g/dL (3.4-5.0); Bilirubin Direct 0.1 mg/dL (0-0.2); Bilirubin Total 0.4 mg/dL (0.2-1.0); Potassium 3.9 mmol/L (3.5-5.1); Protein, Total 7.2 g/dL (6.4-8.2)
[2020-03-25] MEDS ORDERED: FENTANYL CITR 100 MCG/2 ML ONE (10:10)
[2020-03-25] MEDS ORDERED: ONDANSETRON 4 MG/2 ML VIAL ONE (10:11)
[2020-03-25] MEDS ORDERED: NA CHLORIDE 0.9% 1,000 ML ONE (10:11)
--- NOTE | 2020-03-25 10:25 | RAD REPORT ---
EXAM DESCRIPTION: CTAbdomen Pelvis W Contrast - 03/25/2020 10:00 am CLINICAL HISTORY: Abdominal pain. ABD PAIN COMPARISON: Abdomen Pelvis W Contrast dated 05/09/2019; Abdomen Pelvis W Contrast dated 8; CT ABD PELVIS W CONTRAST dated 10/10/2012 TECHNIQUE: Biphasic CT imaging of the abdomen and pelvis was performed with 100 ml non-ionic IV cont rast. All CT scans are performed using dose optimization technique as appropriate and may include automated exposure control or mA/KV adjustment according to patient size. FINDINGS: The lung bases are clear.Postsurgical changes about the stomach noted. Small benign liver cysts are present. No aggressive liver lesion or biliary dilatation. The spleen, p ancreas and adrenal glands are normal. Numerous left renal cysts are present, the largest inferiorly measuring 6.5 cm. Small calculus is seen superior pole left kidney. Small caliceal diverticulum proba nimco present on the right measuring 12 mm with mild dependent calcifications. No aggressive renal lesi on bilaterally. No hydronephrosis. No bowel obstruction, free air, free fluid or abscess. Significant rectosigmoid fecal retention is pr esent. The appendix is normal. No evidence of significant lymphadenopathy. No suspicious bony findings. IMPRESSION: Moderate rectosigmoid fecal retention. No acute process identified.
[2020-03-25 10:43] LABS: Urine Blood NEGATIVE (NEG); Urine Glucose NEGATIVE (NEG); Urine Protein NEGATIVE (NEG)
--- NOTE | 2020-03-25 11:00 | ER ---
Nurse's Notes [facility] Name: Prisca Hernandez Age: 54 yrs Sex: Female : 1965 Arrival Date: 03/25/2020 Time: 08:56 Bed 15 Private MD: Diagnosis: Constipation, unspecified Presentation: 03/25 09:14 Chief complaint: Patient states: severe abd pain, thought it might be constipation, em took laxatives and an enema this morning with little relief, reports nausea, denies fever or diarrhea. Coronavirus screen: Client denies travel out of the [place] in the last 14 days. Ebola Screen: Patient negative for fever greater than or equal to 101.5 degrees Fahrenheit, and additional compatible Ebola Virus Disease symptoms Patient denies exposure to infectious person. Patient denies travel to an Ebola-affected area in the 21 days before illness onset. No symptoms or risks identified at this time. Initial Sepsis Screen: Does the patient meet any 2 criteria? No. Patient's initial sepsis screen is negative. Does the patient have a suspected source of infection? No. Patient's initial sepsis screen is negative. Risk Assessment: Do you want to hurt yourself or someone else? Patient reports no desire to harm self or others. Onset of symptoms was March 23, 2020. 09:14 Method Of Arrival: Ambulatory em 09:14 Acuity: ROGER 3 em Historical: - Allergies: 09:17 No Known Allergies; em - PMHx: 09:17 Brain tumor Non-malignan; Depression; Fibromyalgia; High Cholesterol; Hypertension; em Migraines; - PSHx: 09:17 gastric sleeve 2019; ; ankle; Knee surgery; elbow; em - Immunization history:: Adult Immunizations up to date. - Social history:: Smoking status: Patient denies any tobacco usage or history of. Screenin:14 Abuse screen: Denies threats or abuse. Nutritional screening: No deficits noted. em Tuberculosis screening: No symptoms or risk factors identified. Fall Risk None identified. Assessment: 09:14 General: Appears in no apparent distress. uncomfortable, Behavior is calm, cooperative, em appropriate for age, Denies fever. Pain: Complains of pain in abdomen Pain currently is 7 out of 10 on a pain scale. Neuro: Level of Consciousness is awake, alert, obeys commands, Oriented to person, place, time, situation, Appropriate for age. Cardiovascular: Capillary refill < 3 seconds Patient's skin is warm and dry. Respiratory: Airway is patent Respiratory effort is even, unlabored, Respiratory pattern is regular, symmetrical. GI: Abdomen is round non-distended, Bowel sounds present X 4 quads. Abd is soft X 4 quads Abdomen is tender to palpation X 4 quads. Reports constipation, nausea, Patient currently denies diarrhea, vomiting. Derm: Skin is intact, is healthy with good turgor, Skin is pink, warm \T\ dry. Musculoskeletal: Capillary refill < 3 seconds, Range of motion: intact in all extremities. 10:50 Reassessment: Patient appears in no apparent distress at this time. Patient and/or em family updated on plan of care and expected duration. Pain level reassessed. Patient is alert, oriented x 3, equal unlabored respirations, skin warm/dry/pink. Patient states feeling better. 11:00 Reassessment: pending completion of IV NS bolus before being discharged. em Vital Signs: 09:08 BP 154 / 95; Pulse 75; Resp 16; Temp 98.1(TE); Pulse Ox 98% on R/A; Weight 88.45 kg; dh3 Height 5 ft. 7 in. (170.18 cm); Pain 7/10; 09:08 Body Mass Index 30.54 (88.45 kg, 170.18 cm) 3 ED Course: 08:56 Patient arrived in ED. rg4 09:03 Brett Jennings, MARKEL is Primary Nurse. em 09:06 Jarrell Maxwell NP is PHCP. pm1 09:06 Rocky Guajardo MD is Attending Physician. pm1 09:14 Patient has correct armband on for positive identification. Placed in gown. Bed in low em position. Call light in reach. Side rails up X2. Adult w/ patient. Pulse ox on. NIBP on. 09:16 Triage completed. em 09:17 Arm band placed on. em 09:34 Initial lab(s) drawn, by me, sent to lab. Inserted saline lock: 20 gauge in right dh3 antecubital area, using aseptic technique. Blood collected. 10:00 CT Abd/Pelvis - IV Contrast Only In Process Unspecified. EDMS 12:10 No provider procedures requiring assistance completed. IV discontinued, intact, jl7 bleeding controlled, No redness/swelling at site. Pressure dressing applied. Administered Medications: 10:08 Drug: NS 0.9% 1000 ml Route: IV; Rate: 1000 ml; Site: right antecubital; em 12:11 Follow up: Response: No adverse reaction; IV Intake: 1000ml jl7 12:11 Follow up: IV Status: Completed infusion jl7 10:10 Drug: Zofran (Ondansetron) 4 mg Route: IVP; Site: right antecubital; em 11:25 Follow up: Response: No adverse reaction; Marked relief of symptoms; Nausea is decreasedem 10:12 Drug: fentaNYL (PF) 50 mcg Route: IVP; Site: right antecubital; em 10:52 Follow up: Response: No adverse reaction; Marked relief of symptoms; Pain is decreased; em RASS: Alert and Calm (0) 11:25 Follow up: Response: No adverse reaction; Marked relief of symptoms; Pain is decreased; em RASS: Alert and Calm (0) 11:19 Drug: Bentyl 20 mg Route: PO; em 12:11 Follow up: Response: No adverse reaction jl7 Intake: 12:11 IV: 1000ml; Total: 1000ml. jl7 Outcome: 11:00 Discharge ordered by MD. pm1 12:10 Discharged to home ambulatory, with family. jl7 12:10 Condition: stable 12:10 Discharge instructions given to patient, family, Instructed on discharge instructions, follow up and referral plans. medication usage, Demonstrated understanding of instructions, follow-up care, medications, Prescriptions given X 3. 12:11 Patient left the ED. jl7 Signatures: Dispatcher [employer] Brett Reinoso, RN RN em Jarrell Maxwell, AERONAUTICAL ENGINEERING OFFICER AERONAUTICAL ENGINEERING OFFICER pm1 Joann Baca rg4 Jane Díaz RN RN jl7 Lynne Gaines 3
--- NOTE | 2020-03-25 11:01 | EDPHYS ---
Physician Documentation [facility] Name: Prisca Hernandez Age: 54 yrs Sex: Female : 1965 Arrival Date: 03/25/2020 Time: 08:56 Bed 15 Private MD: ED Physician Rocky Guajardo HPI: 03/25 10:20 This 54 yrs old Female presents to ER via Ambulatory with complaints of pm1 Abdominal Pain. 10:20 The patient presents with abdominal pain in the left lower quadrant. pm1 10:20 Onset: The symptoms/episode began/occurred 2 day(s) ago. The symptoms do not radiate. pm1 Associated signs and symptoms: Pertinent positives: Constipation for the past 6 days. The symptoms are described as crampy, sharp. Modifying factors: The symptoms are alleviated by enema this AM helped, has also been taking laxatives and stool softeners for the past few days. the symptoms are aggravated by Patient does not drink plenty of fluids due to history of gastric sleeve per patient. Severity of pain: in the emergency department the pain is actually worse. The patient has experienced similar episodes in the past, multiple times. The patient has not recently seen a physician. Historical: - Allergies: 09:17 No Known Allergies; em - PMHx: 09:17 Brain tumor Non-malignan; Depression; Fibromyalgia; High Cholesterol; Hypertension; em Migraines; - PSHx: 09:17 gastric sleeve 2019; ; ankle; Knee surgery; elbow; em - Immunization history:: Adult Immunizations up to date. - Social history:: Smoking status: Patient denies any tobacco usage or history of. ROS: 10:20 Constitutional: Negative for fever, chills, and weight loss, Cardiovascular: Negative pm1 for chest pain, palpitations, and edema, Respiratory: Negative for shortness of breath, cough, wheezing, and pleuritic chest pain. 10:20 Back: Negative for injury and pain, : Negative for injury, bleeding, discharge, and swelling, MS/Extremity: Negative for injury and deformity, Skin: Negative for injury, rash, and discoloration, Neuro: Negative for headache, weakness, numbness, tingling, and seizure. 10:20 Abdomen/GI: Positive for abdominal pain, constipation, Negative for nausea, vomiting, and diarrhea. Exam: 10:20 Constitutional: This is a well developed, well nourished patient who is awake, alert, pm1 and in no acute distress. Head/Face: Normocephalic, atraumatic. 10:20 Skin: Warm, dry with normal turgor. Normal color with no rashes, no lesions, and no evidence of cellulitis. MS/ Extremity: Pulses equal, no cyanosis. Neurovascular intact. Full, normal range of motion. 10:20 Cardiovascular: Exam negative for acute changes, Rate: normal, Rhythm: regular, Pulses: no pulse deficits are appreciated, Edema: is not appreciated. 10:20 Respiratory: Exam negative for acute changes, respiratory distress, shortness of breath. 10:20 Neuro: Orientation: is normal, Mentation: is normal, Cranial nerves: CN II- XII are normal as tested, Motor: moves all fours. Vital Signs: 09:08 BP 154 / 95; Pulse 75; Resp 16; Temp 98.1(TE); Pulse Ox 98% on R/A; Weight 88.45 kg; dh3 Height 5 ft. 7 in. (170.18 cm); Pain 10/05; 09:08 Body Mass Index 30.54 (88.45 kg, 170.18 cm) 3 MDM: 09:15 Patient medically screened. pm1 10:27 Data reviewed: vital signs. pm1 10:57 Counseling: I had a detailed discussion with the patient and/or guardian regarding: the pm1 historical points, exam findings, and any diagnostic results supporting the discharge/admit diagnosis, lab results, radiology results, the need for outpatient follow up, to return to the emergency department if symptoms worsen or persist or if there are any questions or concerns that arise at home. 03/25 09:15 Order name: Basic Metabolic Panel; Complete Time: 10:20 pm1 03/25 09:15 Order name: CBC with Diff; Complete Time: 10:20 pm1 03/25 09:15 Order name: Hepatic Function; Complete Time: 10:20 pm1 03/25 09:15 Order name: Lipase; Complete Time: 10:20 pm1 03/25 10:30 Order name: Urine Dipstick--Ancillary (enter results); Complete Time: 10:46 eb 03/25 10:30 Order name: Urine --Ancillary (enter results); Complete Time: 10:46 eb 03/25 09:15 Order name: IV Saline Lock; Complete Time: 09:41 pm1 03/25 09:15 Order name: Labs collected and sent; Complete Time: 09:41 pm1 03/25 09:30 Order name: CT Abd/Pelvis - IV Contrast Only; Complete Time: 10:27 pm1 03/25 09:30 Order name: Urine Dipstick-Ancillary (obtain specimen); Complete Time: 10:22 pm1 03/25 09:30 Order name: Urine Test (obtain specimen); Complete Time: 10:22 pm1 Administered Medications: 10:08 Drug: NS 0.9% 1000 ml Route: IV; Rate: 1000 ml; Site: right antecubital; em 12:11 Follow up: Response: No adverse reaction; IV Intake: 1000ml jl7 12:11 Follow up: IV Status: Completed infusion jl7 10:10 Drug: Zofran (Ondansetron) 4 mg Route: IVP; Site: right antecubital; em 11:25 Follow up: Response: No adverse reaction; Marked relief of symptoms; Nausea is decreasedem 10:12 Drug: fentaNYL (PF) 50 mcg Route: IVP; Site: right antecubital; em 10:52 Follow up: Response: No adverse reaction; Marked relief of symptoms; Pain is decreased; em RASS: Alert and Calm (0) 11:25 Follow up: Response: No adverse reaction; Marked relief of symptoms; Pain is decreased; em RASS: Alert and Calm (0) 11:19 Drug: Bentyl 20 mg Route: PO; em 12:11 Follow up: Response: No adverse reaction [facility] Disposition: : Co-signature as Attending Physician, Rocky Guajardo MD. rn Disposition: 03/25/20 11:00 Discharged to Home. Impression: Constipation, unspecified. - Condition is Stable. - Discharge Instructions: Constipation, Adult, High-Fiber Diet. - Prescriptions for Bentyl 20 mg Oral Tablet - take 1 tablet by ORAL route every 6 hours As needed; 20 tablet. Lactulose 10 gram/15 mL Oral Solution - take 30 milliliter by ORAL route once daily; 300 milliliter. Zofran ODT 4 mg Oral tablet,disintegrating - place 1 tablet by TRANSLINGUAL route every 8 hours As needed; 20 tablet. - Medication Reconciliation Form, Thank You Letter, Antibiotic Education, Prescription Opioid Use form. - Follow up: Emergency Department; When: As needed; Reason: Worsening of condition. Follow up: Private Physician; When: 1 - 2 days; Reason: Recheck today's complaints, Continuance of care, Re-evaluation by your physician. - Problem is new. - Symptoms have improved. Signatures: Dispatcher [employer] EDBrett Medellin, RN Rocky Thomas MD MD rn Marinas, Patrick, BOW REHAIRER BOW REHAIRER pm1 Jane Díaz RN RN jl7 Corrections: (The following items were deleted from the chart) 12:11 11:00 03/25/2020 11:00 Discharged to Home. Impression: Constipation, unspecified. jl7 Condition is Stable. Forms are Medication Reconciliation Form, Thank You Letter, Antibiotic Education, Prescription Opioid Use. Follow up: Emergency Department; When: As needed; Reason: Worsening of condition. Follow up: Private Physician; When: 1 - 2 days; Reason: Recheck today's complaints, Continuance of care, Re-evaluation by your physician. Problem is new. Symptoms have improved. pm1
[2020-03-25] MEDS ORDERED: DICYCLOMINE HCL 10 MG CAP ONE (11:30)
[2020-03-25 12:22] VITALS: BP 154/95; TEMP 98.1; O2SAT 98
== END 2020-03-25 12:11 | disposition home or self-care (01) ==
LOC: ER 08:55
DX: K59.00 Constipation, unspecified (principal); I10 Essential (primary) hypertension; Z98.84 Bariatric surgery status
CPT/HCPCS: 96361; 85025; 80048; 36415; 81025; 82565; 80076; 81003; 83690; 74177; 96375; 96374; 99284; Q9967; J3010; J7030; J2405

== ENCOUNTER 2021-01-14 11:08 | Emergency (ER) | payer OTHER, BC ==
[2021-01-14] MEDS ORDERED: ACETAMINOPHEN 325 MG TABLET ONE (11:58)
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
[2021-01-14 14:39] VITALS: TEMP 98.5; O2SAT 99
[2021-01-14 14:41] VITALS: BP 149/99
--- NOTE | 2021-01-14 15:08 | RAD REPORT ---
EXAM DESCRIPTION: RAD - Ankle Left 3 View - 01/14/2021 1:49 pm CLINICAL HISTORY: PAIN COMPARISON: No comparisons FINDINGS: No acute fracture. No malalignment. Calcaneal spurring. Screw tract at the distal fibula. IMPRESSION: No acute osseous abnormality involving the left ankle.
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
--- NOTE | 2021-01-14 15:10 | RAD REPORT ---
EXAM DESCRIPTION: RAD - Knee Left 3 View - 01/14/2021 1:49 pm CLINICAL HISTORY: PAIN COMPARISON: No comparisons FINDINGS: No acute fracture. No malalignment. Mild medial and lateral compartment spurring. The medi al compartment joint space is preserved. The lateral compartment is mildly narrowed. Patellofemoral c ompartment spurring. IMPRESSION: No acute osseous abnormality involving the left knee.
--- NOTE | 2021-01-14 15:10 | RAD REPORT ---
EXAM DESCRIPTION: RAD - Knee Right 3 View - 01/14/2021 1:49 pm CLINICAL HISTORY: PAIN COMPARISON: No comparisons FINDINGS: No acute fracture. No malalignment. No significant focal degenerative changes. Small knee effusion. IMPRESSION: No acute osseous abnormality involving the right knee. A nonspecific knee effusion is pr esent.
== END 2021-01-14 14:35 | disposition home or self-care (01) ==
LOC: ER 11:08
DX: S93.491A Sprain of other ligament of right ankle, initial encounter (principal); V03.00XA Pedestrian on foot injured in collision with car, pick-up truck or van in nontraffic accident, initial encounter; Y92.481 Parking lot as the place of occurrence of the external cause; Z88.6 Allergy status to analgesic agent
CPT/HCPCS: 99283

== ENCOUNTER 2021-10-08 19:04 | Emergency (ER) | payer BC ==
--- NOTE | 2021-10-08 20:21 | RAD REPORT ---
EXAM DESCRIPTION: RAD - Chest Single View - 10/08/2021 7:57 pm CLINICAL HISTORY: CHEST PAIN COMPARISON: Two view chest January 2020 TECHNIQUE: AP portable chest image was obtained 10/08/2021 7:57 pm . FINDINGS: Lungs are clear. Interstitial pattern matches comparison. Heart and vasculature are normal . No measurable pleural effusion and no pneumothorax. No acute bony abnormality seen. No acute aortic findings suspected. IMPRESSION: No acute cardiopulmonary process. No significant change from comparison study.
[2021-10-08 21:39] LABS: Absolute Lymphocytes (CBC) 2.2 K/uL (0.7-4.9); Hematocrit 32.7 % (36.0-45.0); Lymphocytes % 38.5 % (15.3-44.8); MCV 85.9 fL (80-100); MPV 8.6 fL (7.6-11.3); RBC Red Blood Cell Count 3.81 M/uL (3.86-4.86)
[2021-10-08 21:43] LABS: Albumin 3.6 g/dL (3.4-5.0); Bilirubin Total 0.2 mg/dL (0.2-1.0); Protein, Total 6.7 g/dL (6.4-8.2); Troponin High Sensitivity 3.9 pg/mL (<58.9)
[2021-10-08 21:44] LABS: Potassium 3.3 mmol/L (3.5-5.1)
--- NOTE | 2021-10-08 23:58 | ER ---
Nurse's Notes [facility] Name: Prisca Hernandez Age: 56 yrs Sex: Female : 1965 Arrival Date: 10/08/2021 Time: 19:07 Bed 4 Private MD: Diagnosis: Chest pain, unspecified;Upper abdominal pain, unspecified;Nausea with vomiting, unspecified Presentation: 10/08 20:25 Chief complaint: Patient states: "My doctor told me to come in because I was throwing vc1 up earlier and a couple of days ago and I was throwing up blood. I've also been having some chest pain.". Coronavirus screen: Vaccine status: Patient reports receiving the 2nd dose of the covid vaccine. Date June 2020 Moderna Patient reports having had a previously documented Covid positive illness. Last week of August first week of September At this time, the client does not indicate any symptoms associated with coronavirus-19. Ebola Screen: No symptoms or risks identified at this time. Initial Sepsis Screen: Does the patient meet any 2 criteria? No. Patient's initial sepsis screen is negative. Does the patient have a suspected source of infection? No. Patient's initial sepsis screen is negative. Risk Assessment: Do you want to hurt yourself or someone else? Patient reports no desire to harm self or others. Onset of symptoms was October 06, 2021. 20:25 Method Of Arrival: Ambulatory vc1 20:25 Acuity: ROGER 3 vc1 Triage Assessment: 20:31 General: Appears in no apparent distress. comfortable, Behavior is calm, cooperative, vc1 appropriate for age. Pain: Complains of pain in epigastric area and right upper quadrant. EENT: No deficits noted. Neuro: Level of Consciousness is awake, alert, obeys commands, Oriented to person, place, time, situation, Appropriate for age. Cardiovascular: Reports chest pain, vomiting. Respiratory: No deficits noted. GI: Reports intolerance of food, nausea, vomiting. : No deficits noted. Derm: No deficits noted. Musculoskeletal: No deficits noted. Historical: - Allergies: 20:29 No NSAIDs; vc1 - PMHx: 20:29 Brain tumor Non-malignan; Depression; Fibromyalgia; High Cholesterol; Hypertension; vc1 Migraines; - PSHx: 20:29 gastric sleeve; vc1 - Immunization history:: Adult Immunizations up to date. - Social history:: Smoking status: Patient denies any tobacco usage or history of. Screenin:30 Abuse screen: Denies threats or abuse. Nutritional screening:. Nutritional screening: vc1 No deficits noted. Tuberculosis screening: No symptoms or risk factors identified. Fall Risk None identified. Assessment: 21:19 General: Appears in no apparent distress. Behavior is calm, cooperative. Pain: as6 Complains of pain in abdomen and right upper quadrant and epigastric area Pain radiates to back Quality of pain is described as tender, Pain began 2-3 days ago. Neuro: Level of Consciousness is awake, alert, obeys commands, Oriented to person, place, time, situation. Respiratory: Respiratory effort is even, unlabored. GI: Reports upper abdominal pain, nausea. Vital Signs: 20:25 Pulse 82; Resp 16; Temp 97.9; Pulse Ox 100% ; Weight 83.01 kg; Height 5 ft. 7 in. vc1 (170.18 cm); Pain 5/10; 20:32 BP 140 / 94; vc1 21:23 BP 148 / 90; Pulse 59; Resp 13 S; Pulse Ox 99% on R/A; as6 23:28 BP 120 / 78; Pulse 81; Resp 20; Pulse Ox 100% on R/A; ld1 10/09 00:00 BP 123 / 79; Pulse 70; Resp 21 S; Pulse Ox 100% on R/A; as6 10/08 20:25 Body Mass Index 28.66 (83.01 kg, 170.18 cm) vc1 ED Course: 10/08 19:07 Patient arrived in ED. ja2 19:09 Cuba Wilson DO is Attending Physician. ms3 19:58 XRAY Chest (1 view) In Process Unspecified. EDMS 20:29 Triage completed. vc1 20:29 Arm band placed on right wrist. vc1 20:49 Adrián Arango, MARKEL is Primary Nurse. as6 21:20 Bed in low position. Call light in reach. Side rails up X2. Client placed on continuous as6 cardiac and pulse oximetry monitoring. NIBP monitoring applied. 21:20 Inserted saline lock: 20 gauge in right antecubital area, using aseptic technique. as6 Blood collected. Patient maintains SpO2 saturation greater than 95% on room air. 22:24 CT Abd/Pelvis - IV Contrast Only In Process Unspecified. EDMS 10/09 00:06 No provider procedures requiring assistance completed. IV discontinued, intact, as6 bleeding controlled, No redness/swelling at site. Pressure dressing applied. Administered Medications: No medications were administered Medication: 00:06 VIS not applicable for this client. as6 Outcome: 10/08 23:57 Discharge ordered by . ms3 10/09 00:06 Discharged to home ambulatory, with significant other. as6 Condition: stable Discharge instructions given to patient, Instructed on discharge instructions, follow up and referral plans. Demonstrated understanding of instructions, follow-up care. 00:06 Patient left the ED. as6 Signatures: Dispatcher [employer] EDIL Cuba Wilson DO DO ms3 Jasmyn Alanis, RN RN ld1 Gabriela Alfaro Ashby, MARKEL RN as6 Shraddha Palma RN RN vc1 Corrections: (The following items were deleted from the chart) 10/08 20:30 20:29 Allergies: No NSIAD's; vc1 vc1
--- NOTE | 2021-10-08 23:58 | EDPHYS ---
Physician Documentation [facility] Name: Prisca Hernandez Age: 56 yrs Sex: Female : 1965 Arrival Date: 10/08/2021 Time: 19:07 Bed 4 Private MD: ED Physician Cuba Wilson HPI: 10/08 19:44 This 56 yrs old Female presents to ER via Unassigned with complaints of Nose Bleed, ms3 Blood in Vomit, Chest Tightness, Abdominal Pain. 19:45 The patient or guardian reports chest pain that is located primarily in the substernal ms3 area. Onset: 2 week(s) ago. The pain radiates to the right shoulder. Associated signs and symptoms: Pertinent positives: vomiting, Nose bleed, RUQ abdominal pain. The chest pain is described as a pressure. Duration: The patient or guardian reports a single episode, that is still ongoing, and worsening. Modifying factors: The symptoms are alleviated by nothing. the symptoms are aggravated by nothing. Severity of pain: At its worst the pain was moderate in the emergency department the pain is unchanged. Historical: - Allergies: 20:29 No NSAIDs; vc1 - PMHx: 20:29 Brain tumor Non-malignan; Depression; Fibromyalgia; High Cholesterol; Hypertension; vc1 Migraines; - PSHx: 20:29 gastric sleeve; vc1 - Immunization history:: Adult Immunizations up to date. - Social history:: Smoking status: Patient denies any tobacco usage or history of. ROS: 19:45 Constitutional: Negative for fever, and chills. Eyes: Negative for injury, pain, ms3 redness, and discharge, ENT: Negative for injury, pain, and discharge, Neck: Negative for injury, pain, and swelling, Respiratory: Negative for shortness of breath, cough, wheezing, and pleuritic chest pain. 19:45 Cardiovascular: Positive for chest pain. 19:45 Abdomen/GI: Positive for abdominal pain, vomiting. 19:45 All other systems are negative. ms3 Exam: 19:45 Constitutional: This is a well developed, well nourished patient who is awake, alert, ms3 and in no acute distress. Head/Face: Normocephalic, atraumatic. Eyes: Pupils equal round and reactive to light, extra-ocular motions intact. Lids and lashes normal. Conjunctiva and sclera are non-icteric and not injected. Periorbital areas with no swelling, redness, or edema. Neck: Trachea midline, no cervical lymphadenopathy. Supple, full range of motion without nuchal rigidity, or vertebral point tenderness. No Meningismus. Chest/axilla: Normal chest wall appearance and motion. Nontender with no deformity. Cardiovascular: Regular rate and rhythm with a normal S1 and S2. No gallops, murmurs, or rubs. Normal PMI, no JVD. No pulse deficits. Respiratory: Lungs have equal breath sounds bilaterally, clear to auscultation and percussion. No rales, rhonchi or wheezes noted. No increased work of breathing, no retractions or nasal flaring. Abdomen/GI: Soft, non-tender, with normal bowel sounds. No distension or tympany. No guarding or rebound. No evidence of tenderness throughout. Skin: Warm, dry with normal turgor. Normal color with no rashes, no lesions, and no evidence of cellulitis. MS/ Extremity: Pulses equal, no cyanosis. Neurovascular intact. Full, normal range of motion. Psych: Awake, alert, with orientation to person, place and time. Behavior, mood, and affect are within normal limits. 21:20 ECG was reviewed by the Attending Physician. ms3 Vital Signs: 20:25 Pulse 82; Resp 16; Temp 97.9; Pulse Ox 100% ; Weight 83.01 kg; Height 5 ft. 7 in. vc1 (170.18 cm); Pain 5/10; 20:32 BP 140 / 94; vc1 21:23 BP 148 / 90; Pulse 59; Resp 13 S; Pulse Ox 99% on R/A; as6 23:28 BP 120 / 78; Pulse 81; Resp 20; Pulse Ox 100% on R/A; ld1 10/09 00:00 BP 123 / 79; Pulse 70; Resp 21 S; Pulse Ox 100% on R/A; as6 10/08 20:25 Body Mass Index 28.66 (83.01 kg, 170.18 cm) vc1 MDM: 10/08 20:04 Patient medically screened. ms3 23:57 Differential diagnosis: abnormal EKG, acute myocardial infarction, acute pericarditis. ms3 HEART Score: History: Slightly Suspicious (0), ECG: Normal (0), Age: > 45 and < 65 years (1), Risk Factors: 1 or 2 risk factors (1), Troponin: < or = 1 x Normal Limit (0), Total Score = 2. Data reviewed: vital signs, nurses notes, lab test result(s), EKG, radiologic studies, and as a result, I will discharge patient. Counseling: I had a detailed discussion with the patient and/or guardian regarding: the historical points, exam findings, and any diagnostic results supporting the discharge/admit diagnosis, lab results, radiology results, the need for outpatient follow up, to return to the emergency department if symptoms worsen or persist or if there are any questions or concerns that arise at home. ED course: Discussed labs, chest x-ray, physical exam findings with patient. Patient to follow-up with primary care physician in 2 to 3 days. Patient understands and agrees with plan. All questions were answered. Return precautions discussed include worsening symptoms, or any other concerns. On reevaluation patient is alert and oriented x4, in no apparent distress, nontoxic-appearing, speaking full sentences, ambulatory in emergency department. . 10/08 19:43 Order name: Basic Metabolic Panel ms3 10/08 19:43 Order name: CBC with Diff; Complete Time: 23:52 ms3 10/08 19:43 Order name: Troponin HS; Complete Time: 23:52 ms3 10/08 19:43 Order name: XRAY Chest (1 view); Complete Time: 23:52 ms3 10/08 19:43 Order name: CMP; Complete Time: 23:52 ms3 10/08 19:43 Order name: Lipase; Complete Time: 23:52 ms3 10/08 19:43 Order name: EKG; Complete Time: 19:44 ms3 10/08 19:43 Order name: Cardiac monitoring; Complete Time: 21:25 ms3 10/08 19:43 Order name: EKG - Nurse/Tech; Complete Time: 21:25 ms3 10/08 19:43 Order name: IV Saline Lock; Complete Time: 21:18 ms3 10/08 19:43 Order name: Labs collected and sent; Complete Time: 21:18 ms3 10/08 19:43 Order name: O2 Per Protocol; Complete Time: 21:18 ms3 10/08 19:43 Order name: O2 Sat Monitoring; Complete Time: 21:18 ms3 10/08 19:43 Order name: CT Abd/Pelvis - IV Contrast Only ms3 EC:20 Rate is 64 beats/min. Rhythm is regular. QRS [place] is Normal. Clinical impression: NSR ms3 w/ Non-specific ST/T Changes. Interpreted by me. Reviewed by me. Administered Medications: No medications were administered Disposition Summary: 10/08/21 23:57 Discharge Ordered Location: Home ms3 Condition: Stable ms3 Diagnosis - Chest pain, unspecified ms3 - Upper abdominal pain, unspecified ms3 - Nausea with vomiting, unspecified ms3 Followup: ms3 - With: Private Physician - When: 2 - 3 days - Reason: Recheck today's complaints Discharge Instructions: - Discharge Summary Sheet ms3 - Nonspecific Chest Pain, Adult ms3 - Nausea and Vomiting, Adult ms3 Forms: - Medication Reconciliation Form ms3 - Thank You Letter ms3 - Antibiotic Education ms3 - Prescription Opioid Use ms3 Signatures: Dispatcher [employer] EDCuba Shoemaker DO DO ms3 Shraddha Palma RN RN vc1 Corrections: (The following items were deleted from the chart) 20:30 20:29 Allergies: No NSIAD's; vc1 vc1
[2021-10-09 00:35] VITALS: TEMP 97.9
[2021-10-09 00:39] VITALS: O2SAT 100
[2021-10-09 00:41] VITALS: BP 123/79
--- NOTE | 2021-10-09 13:05 | EKG ---
Test Date: 2021-10-08 Test Time: 21:20:23 Client Success Specialist: MAXIMILIANO MEASUREMENT RESULTS: Intervals: Rate: 64 [place]: 164 QRSD: 80 QT: 392 QTc: 404 [place]: P: 137 [place]: 164 QRS: 75 T: 111 INTERPRETIVE STATEMENTS: Unusual P axis, possible ectopic atrial rhythm Low voltage QRS Abnormal ECG Compared to ECG 05/09/2019 13:38:45 Low QRS voltage now present Sinus bradycardia no longer present Electronically Signed On 10-09-21 13:04:05 CDT by Max Garcia
--- NOTE | 2021-10-09 14:38 | RAD REPORT ---
EXAM DESCRIPTION: CT - Abdomen Pelvis W Contrast - 10/09/2021 6:32 am CLINICAL HISTORY: The patient is 56 years old and is Female; Right sided abdominal pain. Hx gastri c sleeve and NETWORK CONSULTANT shunt TECHNIQUE: Axial computed tomography images of the abdomen and pelvis with intravenous contrast. S agittal and coronal reformatted images were created and reviewed. This CT exam was performed using one or more of the following dose reduction techniques: automated exposure control, adjustment of t he mA and/or kV according to patient size, and/or use of iterative reconstruction technique. COMPARISON: CT abdomen pelvis March 25, 2020 FINDINGS: LUNG BASES: Unremarkable. No mass. No consolidation. ABDOMEN: LIVER: A small cyst within the right hepatic lobe measuring 1.5 cm is present. No follow-up imagi ng is recommended. GALLBLADDER AND BILE DUCTS: No calcified stones. No ductal dilation. PANCREAS: No ductal dilation. No mass. SPLEEN: Unremarkable. ADRENALS: Unremarkable. No mass. KIDNEYS AND URETERS: Innumerable left renal cysts are present, similar to prior exam. No follow-u p imaging is recommended. The kidneys enhance symmetrically. There is no hydronephrosis or hydrourete r of either kidney. No obstructing renal or ureteral calculus is seen. STOMACH AND BOWEL: Postsurgical change of the stomach is present. The small bowel is normal in ca liber. Stool is present throughout colon. There is no mucosal thickening or evidence of bowel obstruc tion. PELVIS: APPENDIX: The appendix is normal in caliber without surrounding inflammation. BLADDER: Unremarkable. No mass. REPRODUCTIVE: Unremarkable as visualized. ABDOMEN and PELVIS: INTRAPERITONEAL SPACE: Trace amount of fluid is present within the right upper quadrant. Trace free fluid is present within the pelvis which is likely physiologic. No free air. BONES/JOINTS: No acute fracture. SOFT TISSUES: The soft tissues are normal. VASCULATURE: Unremarkable. No abdominal aortic aneurysm. LYMPH NODES: Unremarkable. No enlarged lymph nodes. TUBES, LINES AND DEVICES: Distal aspect of the ventriculostomy catheter is present with the tip i n the right upper quadrant. IMPRESSION: No acute findings on this contrasted CT of the abdomen and pelvis to explain the patient 's symptoms. Electronically signed by: Whitney Byrne MD 10/08/2021 10:45 PM CDT Due to temporary technical issues with the PACS/Fluency reporting system, reports are being signed by the in house radiologists without review as a courtesy to insure prompt reporting. The interpreting radiologist is fully responsible for the content of the report.
== END 2021-10-09 00:06 | disposition home or self-care (01) ==
LOC: ER 19:04
DX: R07.9 Chest pain, unspecified (principal); R10.11 Right upper quadrant pain; R11.2 Nausea with vomiting, unspecified; Z98.84 Bariatric surgery status; Z88.6 Allergy status to analgesic agent; I10 Essential (primary) hypertension
CPT/HCPCS: 93005; 85025; 36415; 84484; 83690; 80053; 74177; 71045; 99284; Q9967

== ENCOUNTER → 2023-01-15 | Day surgery (SDC) | payer BC ==
--- NOTE | 2023-01-15 13:11 | RAD REPORT ---
EXAM DESCRIPTION: US - Guided FNA Non Breast - 01/15/2023 11:15 am CLINICAL HISTORY: Thyroid nodule ICD E04.1 COMPARISON: January 01, 2023 ultrasound TECHNIQUE: Risks, benefits and alternatives of procedure explained to the patient and informed conse nt obtained. Skin and subcutaneous tissues anesthetized with lidocaine. Under sonographic guidance, five 25 gauge needle passes were obtained into the 2.5 centimeter nodule within the left lobe of the thyroid gland. Specimens given to pathology. Patient experienced no immediate complication IMPRESSION: Fine-needle aspiration of a dominant nodule within left lobe of thyroid gland
== END ==
LOC: FNA 08:00
PROVIDERS: ATTEND Internal Medicine
PROC: 0GBG3ZX Excision of Left Thyroid Gland Lobe, Percutaneous Approach, Diagnostic (ICD-10-PCS; principal; 2023-01-15)
DX: E04.1 Nontoxic single thyroid nodule (principal)
CPT/HCPCS: 88162

== ENCOUNTER 2024-01-31 12:03 | Day surgery (SDC) | payer BC ==
[2024-01-27 09:16] LABS: Absolute Basophils 0.1 K/uL (0-0.5); Absolute Eosinophils 0.1 K/uL (0-0.5); Absolute Lymphocytes (CBC) 1.1 K/uL (0.7-4.9); Absolute Monocytes 0.3 K/uL (0.1-1.3); Absolute Neutrophil 1.9 K/uL (1.8-8.0); Hematocrit 34.6 % (36.0-45.0); Hemoglobin 11.3 g/dL (12.0-15.0); Lymphocytes % 31.1 % (15.3-44.8); MCH 29.1 pg (27.0-35.0); MCHC 32.8 g/dL (32.0-36.0); MCV 88.9 fL (80-100); MPV 8.6 fL (7.6-11.3); Neutrophils % 53.9 % (41.7-73.7); Platelets 238 thou/uL (152-406); RBC Red Blood Cell Count 3.89 M/uL (3.86-4.86); Red Cell Distribution Width 15.8 % (12.1-15.2)
[2024-01-27 09:34] LABS: Albumin 3.4 g/dL (3.4-5.0); Albumin/Globulin Ratio 1.1 (1.1-1.8); Anion Gap 6.6 mEq/L (5.0-15.0); Bilirubin Total 0.4 mg/dL (0.2-1.0); Globulin 3.1 g/dL (2.3-3.5); Potassium 3.6 mEq/L (3.5-5.1); Protein, Total 6.5 g/dL (6.4-8.2)
[~2024-01-31 12:03] MED LIST: FENTANYL CITR 100 MCG/2 ML ONE; LIDOCAINE 2% MPF 5 ML VIAL ONE; MIDAZOLAM HCL 2 MG/2 ML INJ ONE; ONDANSETRON 4 MG/2 ML VIAL ONE; ROCURONIUM 50 MG/5 ML VIAL IV ONE; propofoL 200 MG/20 ML VIAL IV ONE
[2024-01-31] MEDS ORDERED: SUGAMMADEX SODIUM 200 MG/2 ML VIAL IV ONE (12:11)
[2024-01-31] MEDS: Ringers Lactate 1,000 ML IV ONE (12:20)
--- NOTE | 2024-01-31 12:25 | EKG ---
Test Date: 2024-01-27 Test Time: 08:59:58 Bottle Capper: KWAME MEASUREMENT RESULTS: Intervals: Rate: 63 KY: 156 QRSD: 82 QT: 406 QTc: 415 [place]: P: 57 KY: 156 QRS: 64 T: 59 INTERPRETIVE STATEMENTS: Normal sinus rhythm Normal ECG Compared to ECG 10/08/2021 21:20:23 No significant changes Electronically Signed On 01-31-24 12:18:12 CHAMBER MAGISTRATE by Wilman Arguelles
[2024-01-31] MEDS ORDERED: SCOPOLAMINE HYDROBROMIDE PATCH TD ONE (12:33)
[2024-01-31] MEDS ORDERED: propofoL 1,000 MG/100 ML VIAL IV ONE (12:53)
[2024-01-31] MEDS ORDERED: dexAMETHasone 10 MG/ML VIAL ONE (13:06)
[2024-01-31] MEDS: CEFOXITIN SODIUM 2 GM/VIAL ONE (13:09)
[2024-01-31] MEDS ORDERED: EPHEDRINE SULF 50 MG/ML VIAL ONE (13:15)
[2024-01-31] MEDS ORDERED: GLYCOPYRROLATE 0.2 MG/ML SYR ONE (13:16)
[2024-01-31] MEDS: LIDOCAINE HCL/EPINEPHRINE 20 ML MDV ONE (13:16)
[2024-01-31] MEDS ORDERED: FENTANYL CITR 100 MCG/2 ML ONE (13:24)
[2024-01-31] MEDS ORDERED: KETOROLAC 30 MG/ML INJ ONE (13:56)
--- NOTE | 2024-01-31 14:04 | P.OP ---
Preoperative diagnosis: Chronic Cholecystitis Postoperative diagnosis: Chronic Cholecystitis Primary procedure: Laparoscopic Cholecystectomy with ICG Cholangiography Anesthesia: GETA + Local Estimated blood loss: <5cc Specimen: Gallbladder Findings: CHEF SAUCIER Shunt, Dense Adhesions Complications: None Implants: Domi Hemostatic Powder Transferred to: Recovery Room Condition: Good
[2024-01-31 14:46] VITALS: O2SAT 99
[2024-01-31] MEDS ORDERED: TRAMADOL 37.5mg/APAP 325mg PER TAB ONE (15:02)
[2024-01-31] MEDS: TRAMADOL 37.5mg/APAP 325mg PER TAB PO ONE (15:04)
[2024-01-31 15:39] VITALS: BP 128/75; TEMP 98.2
--- NOTE | 2024-02-01 01:07 | OP ---
Date of Procedure: 01/31/2024 Surgeon: Harjeet Guevara MD, Preoperative Diagnosis: Chronic cholecystitis. Postoperative Diagnosis: Chronic cholecystitis. Procedures: Laparoscopic cholecystectomy and indocyanine green cholangiography. Anesthesia: General endotracheal plus local 1% lidocaine with epinephrine. Estimated Blood Loss: 5 cc. Specimen: Gallbladder. Findings: 1.SONG WRITER shunt placed in the right upper quadrant. 2.The patient had dense adhesions between the gallbladder and the lateral abdominal wall as well as partially intrahepatic gallbladder. 3.Severe adhesions between the small bowel and the right lateral abdominal wall. 4.Significant thick adhesions between the omentum and the right lateral abdominal wall as well. 5.Stomach and duodenum were in firm apposition to the lower surface of the gallbladder with thick de nse adhesions obscuring the view of the triangle of [place]. Complications: None. Implants: Domi hemostatic powder. Disposition: The patient was transferred to recovery room in good condition. Procedure In Detail: After informed consent was obtained, patient was brought to the operating room, prepped and draped in the usual sterile fashion after adequate anesthesia was achieved. I anestheti zed an area in the supraumbilical position down to subcutaneous tissues. A 5-mm 0-degree optical tro car was introduced without incident or complication. Insufflation was obtained to 15 mmHg at this ti me. There was no injury to vital structures upon entering the abdomen. [address] aced, one in the epigastrium, one in the right upper quadrant. Both of these were similarly anesthet ized, sharply incised, a 5 mm trocar was placed under direct vision without incident or complication. The umbilical trocar was then upsized to a 12 mm under direct visualization without incident or com plication. The patient was then positioned head up right-side up position. Ratcheted grasper was us ed to grasp the patient's gallbladder. There was found to be dense adhesions in the right upper quad rant. I performed extensive adhesiolysis using a combination of blunt dissection as well as electroc autery to dissect free the gallbladder from the omental structures as well as small bowel and the lat eral abdominal wall. After this was taken down, I dissected down to the area where the stomach was o n the anterior surface of the gallbladder near the duodenal junction at the pylorus. This was taken down using combination of electrocautery and blunt dissection predominantly to remove the stomach off the anterior surface of the gallbladder. After this was removed, indocyanine green cholangiography confirmed the position of the anatomic structures, the cystic duct, common duct junction. I then enc ircled these structures and identified both cystic duct and cystic artery. Critical view of safety w as obtained at this point after extensive adhesiolysis was performed as above. After these structure s were unstructured with a window of the liver in the posterior window, I placed double titanium clip s on the proximal side, singly on the distal side of both cystic duct and cystic artery. At this poi nt, Endo Maria T were used to ligate the structures without incident or complication. The gallbladder was removed from the hepatic fossa without incident or complication. The gallbladder was then remov ed and placed in EndoCatch bag and removed through the umbilical trocar site. The area was copiously irrigated and suctioned out completely dry. After insufflation was re-obtained at this point, I spr ayed Domi hemostatic powder matrix over the area where the clips found to be in good position with no leakage of bowel at the end the procedure confirmed on ICG cholangiography as well. At this point , the patient was positioned back i neutral position. The remaining effluent was suctioned out. The 12 mm trocar site was closed using a Caio-Allyn suture passer with 0 Vicryl interrupted fashion with good approximation of tissues. The abdomen was desufflated under direct visualization without incident or complication. All remaining trocars were then copiously irrigated and closed with a 4-0 Monocryl in a running fashion. Dermabond was placed over top. The patient tolerated the procedure w ithout incident or complication, transferred to PACU in good condition. All counts were correct at t he end of the case. JORDAN/RHIANNON Voice ID: [id number] Report ID: [id number]
== END 2024-01-31 15:51 | disposition home or self-care (01) ==
LOC: OR 12:03
PROVIDERS: ATTEND Surgery
PROC: BF50200 Other Imaging of Bile Ducts using Fluorescing Agent, Indocyanine Green Dye, Intraoperative (ICD-10-PCS; 2024-01-31)
PROC: 0FT44ZZ Resection of Gallbladder, Percutaneous Endoscopic Approach (ICD-10-PCS; principal; 2024-01-31 13:30)
DX: K81.1 Chronic cholecystitis (principal); K82.8 Other specified diseases of gallbladder; R10.11 Right upper quadrant pain
CPT/HCPCS: 93005; 85025; 36415; 88304; 80053; 47563; J2704 ×2; J2003; J2250; J3010 ×2; J1100; J0694; J2405; J7120

== ENCOUNTER 2024-04-02 13:08 | Emergency (ER) | payer BC ==
[2024-04-02] MEDS ORDERED: NA CHLORIDE 0.9% 1,000 ML ONE (13:35)
[2024-04-02] MEDS ORDERED: MORPHINE 4 MG/ML SYR ONE ×2 (13:35→14:08)
[2024-04-02] MEDS ORDERED: KETOROLAC 30 MG/ML INJ ONE ×2 (13:35→16:33)
[2024-04-02] MEDS ORDERED: ONDANSETRON 4 MG/2 ML VIAL ONE (13:35)
[2024-04-02 13:37] LABS: Absolute Basophils 0.1 K/uL (0-0.5); Absolute Eosinophils 0.1 K/uL (0-0.5); Absolute Lymphocytes (CBC) 1.4 K/uL (0.7-4.9); Absolute Monocytes 0.5 K/uL (0.1-1.3); Absolute Neutrophil 2.8 K/uL (1.8-8.0); Basophils % 1.2 % (0-1.3); Eosinophils % 1.5 % (0-4.4); Hematocrit 35.6 % (36.0-45.0); Hemoglobin 11.8 g/dL (12.0-15.0); Lymphocytes % 29.2 % (15.3-44.8); MCH 29.4 pg (27.0-35.0); MCHC 33.2 g/dL (32.0-36.0); MCV 88.5 fL (80-100); MPV 8.1 fL (7.6-11.3); Monocytes % 10.6 % (3.3-12.3); Neutrophils % 57.5 % (41.7-73.7); Nucleated Red Blood Cells % 0.1 % (0-0); Platelets 288 thou/uL (152-406); RBC Red Blood Cell Count 4.02 M/uL (3.86-4.86); Red Cell Distribution Width 13.9 % (12.1-15.2)
[2024-04-02 13:54] LABS: Albumin 3.8 g/dL (3.4-5.0); Albumin/Globulin Ratio 1.1 (1.1-1.8); Anion Gap 7.7 mEq/L (5.0-15.0); Bilirubin Total 0.3 mg/dL (0.2-1.0); Globulin 3.4 g/dL (2.3-3.5); Potassium 3.7 mEq/L (3.5-5.1); Protein, Total 7.2 g/dL (6.4-8.2)
--- NOTE | 2024-04-02 14:50 | RAD REPORT ---
EXAMINATION: Stone Protocol CLINICAL INDICATION: Abdominal pain. Left flank pain TECHNIQUE: CT abdomen and pelvis was performed, without IV contrast, as per department protocol. Oral contrast not given. Axial, sagittal and coronal reconstructions were obtained. One or more of the following dose reduction techniques were used: Automated exposure control, adjustment of the mA and k V according to the patient size, and iterative reconstruction. Unless otherwise specified, incidental findings do not require dedicated imaging follow-up. COMPARISON: No prior exam. FINDINGS: The lack of intravenous and oral contrast limits the sensitivity of this exam for evaluation of solid visceral organs, vascular structures, and bowel Mild to moderate left hydronephrosis. 7 mm calculus proximal left ureter. Many exophytic left renal c yst. The largest 7.6 cm. Calcification right kidney may lie within a calyceal diverticulum. Cholecystectomy. 1.6 cm hepatic cyst. The spleen, pancreas and adrenals grossly normal. Post surgical changes involve the stomach. No evidence of diverticulitis. No adnexal mass Peritoneal shunt present. IMPRESSION: 7 mm calculus proximal left ureter results in mild to moderate left hydronephrosis
[2024-04-02] MEDS ORDERED: HYDROMORPHONE HCL 1 MG/ML INJ ONE (16:33)
--- NOTE | 2024-04-02 16:54 | EDPHYS ---
Physician Documentation [facility] Name: Prisca Hernandez Age: 58 yrs Sex: Female : 1965 Arrival Date: 04/02/2024 Time: 13:08 Bed 11 Private MD: ED Physician Jose Cleaning HPI: 04/02 13:21 This 58 yrs old Female presents to ER via Ambulatory with complaints of Low dr5 Back Pain. 13:21 The symptoms are located in the. Patient is a 58-year-old female with history of brain dr5 tumor(nonmalignant), fibromyalgia, hypertension, hyperlipidemia, hypothyroidism, and kidney stones coming in with left lower abdominal pain that is consistent with previous kidney stones. Patient reports that she has passed her kidney stones and never been a pain like this before.. Historical: - Allergies: 13:19 No NSAIDs; cm10 - PMHx: 13:19 Brain tumor Non-malignan; Depression; Fibromyalgia; High Cholesterol; Hypertension; cm10 Migraines; - PSHx: 13:19 gastric sleeve; cm10 - Immunization history:: Adult Immunizations up to date. - Infectious Disease History:: Denies. - Social history:: Smoking status: Patient denies any tobacco usage or history of. ROS: 15:30 Constitutional: as per hpi dr5 Exam: 15:30 Constitutional: This is a well developed, well nourished patient who is awake, alert, dr5 and in no acute distress. Head/Face: Normocephalic, atraumatic. Eyes: Pupils equal round and reactive to light, extra-ocular motions intact. Lids and lashes normal. Conjunctiva and sclera are non-icteric and not injected. Cornea within normal limits. Periorbital areas with no swelling, redness, or edema. Neck: Trachea midline, no thyromegaly or masses palpated, and no cervical lymphadenopathy. Supple, full range of motion without nuchal rigidity, or vertebral point tenderness. No Meningismus. Chest/axilla: Normal chest wall appearance and motion. Nontender with no deformity. No lesions are appreciated. Respiratory: Lungs have equal breath sounds bilaterally, clear to auscultation. No rales, rhonchi or wheezes noted. No increased work of breathing, no retractions or nasal flaring. 15:30 Neuro: Awake and alert, GCS 15, oriented to person, place, time, and situation. Cranial nerves II-XII grossly intact. Motor strength 5/5 in all extremities. Sensory grossly intact. Cerebellar exam normal. Normal gait. 15:30 Abdomen/GI: Inspection: abdomen appears normal, Bowel sounds: normal, Palpation: moderate abdominal tenderness, in all quadrants, in the left lower quadrant, Vital Signs: 13:18 BP 156 / 99; Pulse 87; Resp 15; Temp 97.9; Pulse Ox 98% on R/A; Weight 79.38 kg; Height cm10 5 ft. 7 in. ; Pain 10/10; 14:31 BP 150 / 89; Pulse 56; Resp 18; Pulse Ox 98% ; Pain 5/10; br2 16:07 BP 127 / 85; Pulse 70; Resp 18; Pulse Ox 99% ; br2 16:38 BP 143 / 95; Pulse 71; Resp 16 S; Pulse Ox 99% on R/A; Pain 7/10; br2 18:00 BP 140 / 90; Pulse 65; Resp 18 S; Pulse Ox 99% on R/A; Pain 1/10; br2 13:18 Body Mass Index 27.41 (79.38 kg, 170.18 cm) cm10 13:18 Pain Scale: Adult cm10 14:31 Pain Scale: Adult br2 16:38 Pain Scale: Adult br2 18:00 Pain Scale: Adult br2 MDM: 13:25 Medical Screening Exam initiated dr5 15:30 Differential diagnosis: strain, UTI, Kidney Stone, Hydronephrosis. dr5 17:38 Differential diagnosis: strain, UTI, Kidney stone. Data reviewed: vital signs, nurses dr5 notes, radiologic studies, CT scan. Consideration of Admission/Observation Patient was admitted/placed on observation. I considered the following discharge prescriptions or medication management in the emergency department Medications were administered in the Emergency Department. See MAR. Care significantly affected by the following chronic conditions: Nonmalignant brain tumor, depression, fibromyalgia, hyperlipidemia, hypertension and migraines. Care significantly affected by the following Social Determinants of Health: Poor access to healthcare and/or lack of insurance, Poor access to transportation, Problems related to employment. Counseling: I had a detailed discussion with the patient and/or guardian regarding the historical points, exam findings, and any diagnostic results supporting the discharge/admit diagnosis, the presence of at least one elevated blood pressure reading (>120/80) during this emergency department visit, the need for further work-up and treatment in the hospital, the need to transfer to another facility, for higher level of care, [facility] does not immediately have the required specialist, No urology at [facility]. ED course: Acceptance to [facility]. Will transfer patient. Pain under control. 04/02 13:20 Order name: CBC with Diff; Complete Time: 13:53 dr5 04/02 13:20 Order name: CMP; Complete Time: 13:59 dr5 04/02 13:20 Order name: Lipase; Complete Time: 13:59 dr5 04/02 13:20 Order name: CT Stone Protocol; Complete Time: 15:16 dr5 04/02 13:20 Order name: IV Saline Lock; Complete Time: 13:45 dr5 04/02 13:20 Order name: Labs collected and sent; Complete Time: 13:45 dr5 Administered Medications: 13:44 Drug: TORadol - Ketorolac IVP 15 mg IVP once Route: IVP; Site: right antecubital; br2 14:15 Follow up: Response: Pain is decreased br2 13:44 Drug: Ondansetron IVP 4 mg IVP once; over 2 minutes Route: IVP; Site: right antecubital;br2 14:15 Follow up: Response: Pain is decreased br2 13:44 Drug: morphine IVP or IV 4 mg IVP once over 4 mins Route: IVP; Infused Over: 4 mins; br2 Site: right antecubital; 14:15 Follow up: Response: No adverse reaction; Pain is decreased br2 13:44 Drug: NS 0.9% IV 1000 ml IV at 1 bolus Per protocol; to be given as a bolus over 60 br2 minutes Route: IV; Rate: 1 bolus; Site: right antecubital; 14:45 Follow up: IV Status: Completed infusion; IV Intake: 1000ml br2 14:10 Drug: morphine IVP or IV 4 mg IVP once over 4 mins Route: IVP; Infused Over: 4 mins; br2 Site: right antecubital; 14:40 Follow up: Response: Pain is decreased br2 16:39 Drug: Ketorolac IVP 15 mg IVP once Route: IVP; Site: right antecubital; br2 17:15 Follow up: Response: No adverse reaction; Pain is decreased br2 16:39 Drug: HYDROmorphone IVP 0.5 mg IVP once Route: IVP; Site: right antecubital; br2 17:15 Follow up: Response: Pain is decreased br2 Disposition Summary: 04/02/24 16:54 Transfer Ordered Notes: Transfer Location: [facility] dr5 Reason: Higher level of care dr5 Condition: Stable dr5 Problem: new dr5 Symptoms: are unchanged dr5 Accepting Physician: Dr. Hauser(04/02/24 18:39) br2 Diagnosis - Calculus of kidney dr5 Forms: - Medication Reconciliation Form dr5 - SBAR form dr5 Addendum: 04/04/2024 15:29 Co-signature as Attending Physician, Jose Cleaning MD I agree with the assessment and c kemp plan of care. Signatures: Dispatcher [employer] EDJose Ponce MD MD cha Martinez, Clarissa, RN RN cm10 Giovanna Odonnell RN RN br2 Robert Marin, BODY FITTER-C BODY FITTER-Cdr5 Corrections: (The following items were deleted from the chart) 04/02 18:39 16:54 Dr. Hauser dr5 br2
--- NOTE | 2024-04-02 16:54 | ER ---
Nurse's Notes [facility] Name: Prisca Hernandez Age: 58 yrs Sex: Female : 1965 Arrival Date: 04/02/2024 Time: 13:08 Bed 11 Private MD: Diagnosis: Calculus of kidney Presentation: 04/02 13:18 Chief complaint: Patient states: Left flank pain that radiates to LLQ abdominal pain cm10 onset today. Coronavirus screen: Client denies travel out of the [place] in the last 14 days. Ebola Screen: Patient denies travel to an Ebola-affected area in the 21 days before illness onset. No symptoms or risks identified at this time. Initial Sepsis Screen: Does the patient meet any 2 criteria? No. Patient's initial sepsis screen is negative. Does the patient have a suspected source of infection? No. Patient's initial sepsis screen is negative. Risk Assessment: Do you want to hurt yourself or someone else? Patient reports no desire to harm self or others. Onset of symptoms was April 02, 2024. 13:18 Method Of Arrival: Ambulatory cm10 13:18 Acuity: ROGER 3 cm10 Triage Assessment: 13:20 General: Appears in no apparent distress. uncomfortable, Behavior is calm, cooperative. cm10 Neuro: No deficits noted. Level of Consciousness is awake, alert, obeys commands, Oriented to person, place, time, situation, Appropriate for age. Respiratory: No deficits noted. Airway is patent Respiratory effort is even, unlabored, Respiratory pattern is regular, symmetrical. Historical: - Allergies: 13:19 No NSAIDs; cm10 - PMHx: 13:19 Brain tumor Non-malignan; Depression; Fibromyalgia; High Cholesterol; Hypertension; cm10 Migraines; - PSHx: 13:19 gastric sleeve; cm10 - Immunization history:: Adult Immunizations up to date. - Infectious Disease History:: Denies. - Social history:: Smoking status: Patient denies any tobacco usage or history of. Screenin:42 [facility] ED Fall Risk Assessment (Adult) History of falling in the last 3 months, br2 including since admission No falls in past 3 months (0 pts) Confusion or Disorientation No (0 pts) Intoxicated or Sedated No (0 pts) Impaired Gait No (0 pts) Mobility Assist Device Used No (0 pt) Altered Elimination No (0 pt) Score/Fall Risk Level 0 - 2 = Low Risk Oriented to surroundings. Abuse screen: Denies threats or abuse. Denies injuries from another. Nutritional screening: No deficits noted. Tuberculosis screening: No symptoms or risk factors identified. Assessment: 13:42 Reassessment: Patient and/or family updated on plan of care and expected duration. Pain br2 level reassessed. Patient is alert, oriented x 3, equal unlabored respirations, skin warm/dry/pink. General: Appears uncomfortable, Behavior is cooperative, anxious. Pain: Complains of pain in left lower back Pain radiates to left lower quadrant Pain currently is 10 out of 10 on a pain scale. Neuro: [place]oto Agitation-Sedation Scale (RASS): 0 - Alert and Calm Level of Consciousness is awake, alert, obeys commands, Oriented to person, place, time, situation. Cardiovascular: Capillary refill < 3 seconds. Respiratory: Airway is patent Respiratory effort is even, unlabored, Respiratory pattern is regular, symmetrical. GI: Reports lower abdominal pain, nausea, Pain is 10 out of 10 on a pain scale. : Reports left flank pain. EENT: No signs and/or symptoms were reported regarding the EENT system. Derm: No signs and/or symptoms reported regarding the dermatologic system. Musculoskeletal: No signs and/or symptoms reported regarding the musculoskeletal system. 16:38 Reassessment: Patient and/or family updated on plan of care and expected duration. Pain br2 level reassessed. Patient is alert, oriented x 3, equal unlabored respirations, skin warm/dry/pink. Pain: Complains of pain in left low back Pain currently is 7 out of 10 on a pain scale. 18:00 Reassessment: Patient and/or family updated on plan of care and expected duration. Pain br2 level reassessed. Patient is alert, oriented x 3, equal unlabored respirations, skin warm/dry/pink. Patient states feeling better. Patient states symptoms have improved. Vital Signs: 13:18 BP 156 / 99; Pulse 87; Resp 15; Temp 97.9; Pulse Ox 98% on R/A; Weight 79.38 kg; Height cm10 5 ft. 7 in. ; Pain 10/10; 14:31 BP 150 / 89; Pulse 56; Resp 18; Pulse Ox 98% ; Pain 5/10; br2 16:07 BP 127 / 85; Pulse 70; Resp 18; Pulse Ox 99% ; br2 16:38 BP 143 / 95; Pulse 71; Resp 16 S; Pulse Ox 99% on R/A; Pain 7/10; br2 18:00 BP 140 / 90; Pulse 65; Resp 18 S; Pulse Ox 99% on R/A; Pain 1/10; br2 13:18 Body Mass Index 27.41 (79.38 kg, 170.18 cm) cm10 13:18 Pain Scale: Adult cm10 14:31 Pain Scale: Adult br2 16:38 Pain Scale: Adult br2 18:00 Pain Scale: Adult br2 ED Course: 13:11 Patient arrived in ED. ra3 13:12 Robert Marin FNP-C is PHCP. cm10 13:17 Jose Cleaning MD is Attending Physician. cm10 13:19 Triage completed. cm10 13:20 Arm band placed on right wrist. Patient placed in an exam room, on a stretcher. cm10 13:31 Soraida Gerber, RN is Primary Nurse. cm10 13:42 Giovanna Odonnell, MARKEL is Primary Nurse. br2 13:42 Patient has correct armband on for positive identification. Placed in gown. Bed in low br2 position. Call light in reach. Side rails up X 1. Provided Education on: PLAN OF CARE. 13:44 Inserted saline lock: 20 gauge in right antecubital area, using aseptic technique. br2 Blood collected. Flushed with 10 mL NS. 13:45 CMP Sent. br2 13:45 Lipase Sent. br2 14:38 CT Stone Protocol In Process Unspecified. EDMS 15:33 initiated a transfer with Deandra from the [facility]. eb 15:55 connected the Urologist flotation tender helper for [facility] with Robert Custodial Aide for patient transfer eb consultation. 16:17 connected the hospitalist flotation tender helper for [facility] with Robert Custodial Aide for patient transfer eb consultation. 16:49 administrative approval given by Deandra Velez Rn/ patient has been accepted to [facility] room 1822/ Trisha Stroud has accepted the patient in transfer/ report to be called to [phone]. 18:37 Report given to REPORT GIVEN TO MARKEL CASEY AT [facility]. br2 18:38 No provider procedures requiring assistance completed. Patient transferred, IV remains br2 in place. Administered Medications: 13:44 Drug: TORadol - Ketorolac IVP 15 mg IVP once Route: IVP; Site: right antecubital; br2 14:15 Follow up: Response: Pain is decreased br2 13:44 Drug: Ondansetron IVP 4 mg IVP once; over 2 minutes Route: IVP; Site: right antecubital;br2 14:15 Follow up: Response: Pain is decreased br2 13:44 Drug: morphine IVP or IV 4 mg IVP once over 4 mins Route: IVP; Infused Over: 4 mins; br2 Site: right antecubital; 14:15 Follow up: Response: No adverse reaction; Pain is decreased br2 13:44 Drug: NS 0.9% IV 1000 ml IV at 1 bolus Per protocol; to be given as a bolus over 60 br2 minutes Route: IV; Rate: 1 bolus; Site: right antecubital; 14:45 Follow up: IV Status: Completed infusion; IV Intake: 1000ml br2 14:10 Drug: morphine IVP or IV 4 mg IVP once over 4 mins Route: IVP; Infused Over: 4 mins; br2 Site: right antecubital; 14:40 Follow up: Response: Pain is decreased br2 16:39 Drug: Ketorolac IVP 15 mg IVP once Route: IVP; Site: right antecubital; br2 17:15 Follow up: Response: No adverse reaction; Pain is decreased br2 16:39 Drug: HYDROmorphone IVP 0.5 mg IVP once Route: IVP; Site: right antecubital; br2 17:15 Follow up: Response: Pain is decreased br2 Medication: 18:39 VIS not applicable for this client. br2 Intake: 14:45 IV: 1000ml; Total: 1000ml. br2 Outcome: 16:54 ER care complete, transfer ordered by . erwin 18:38 Transferred by ground EMS PT TRANFERRED BY [facility]. to [facility], br2 C, Transfer form completed. X-rays sent w/ patient. 18:39 Condition: improved br2 18:39 Instructed on the need for transfer, Demonstrated understanding of instructions, 18:39 Patient left the ED. br2 Signatures: Dispatcher [employer] EDMS Jessica Loyd Clarissa RN RN cm10 Zarina Norris ra3 Giovanna Odonnell RN RN br2 Robert Marin, MERARY-C [employer]-Cdr5
[2024-04-02 18:53] VITALS: TEMP 97.9
[2024-04-02 19:04] VITALS: O2SAT 99
[2024-04-02 19:07] VITALS: BP 140/90
== END 2024-04-02 18:39 | disposition short-term general hospital (02) ==
LOC: ER 13:08
DX: N20.0 Calculus of kidney (principal); Z87.442 Personal history of urinary calculi
CPT/HCPCS: 96361; 85025; 36415; 83690; 80053; 76377; 74176; 96375; 96374; 99285; J1171; J2405; J7030

== ENCOUNTER 2024-04-12 04:07 | Emergency (ER) | payer BC ==
[2024-04-12] MEDS ORDERED: ONDANSETRON 4 MG/2 ML VIAL ONE ×2 (04:36→06:48)
[2024-04-12] MEDS ORDERED: KETOROLAC 30 MG/ML INJ ONE (04:36)
[2024-04-12] MEDS ORDERED: FAMOTIDINE 20 MG/2 ML VIAL IV ONE (04:37)
[2024-04-12] MEDS ORDERED: NA CHLORIDE 0.9% 1,000 ML ONE (04:37)
[2024-04-12] MEDS ORDERED: MORPHINE 4 MG/ML SYR ONE (04:37)
[2024-04-12 05:41] LABS: Absolute Basophils 0.1 K/uL (0-0.5); Absolute Eosinophils 0.2 K/uL (0-0.5); Absolute Lymphocytes (CBC) 1.1 K/uL (0.7-4.9); Absolute Monocytes 0.7 K/uL (0.1-1.3); Absolute Neutrophil 6.8 K/uL (1.8-8.0); Basophils % 0.8 % (0-1.3); Eosinophils % 2.7 % (0-4.4); Hematocrit 33.9 % (36.0-45.0); Hemoglobin 11.3 g/dL (12.0-15.0); Lymphocytes % 12.7 % (15.3-44.8); MCH 29.4 pg (27.0-35.0); MCHC 33.3 g/dL (32.0-36.0); MCV 88.5 fL (80-100); Monocytes % 7.7 % (3.3-12.3); Neutrophils % 76.1 % (41.7-73.7); Platelets 281 thou/uL (152-406); RBC Red Blood Cell Count 3.83 M/uL (3.86-4.86); Red Cell Distribution Width 14.1 % (12.1-15.2)
[2024-04-12 05:56] LABS: Albumin 3.2 g/dL (3.4-5.0); Anion Gap 6.9 mEq/L (5.0-15.0); Bilirubin Total 0.3 mg/dL (0.2-1.0); Globulin 3.3 g/dL (2.3-3.5); Potassium 3.9 mEq/L (3.5-5.1); Protein, Total 6.5 g/dL (6.4-8.2)
--- NOTE | 2024-04-12 06:18 | RAD REPORT ---
EXAM DESCRIPTION: Abdomen Pelvis Wo Contrast RadLex: CT ABDOMEN PELVIS WITHOUT IV CONTRAST CLINICAL HISTORY: 58 years Female; ABD PAIN; NO CONTRAST TECHNIQUE: CT of the abdomen and pelvis without contrast. All CT scans at this facility use dose modulation, iterative reconstruction, and/or weight based dosi ng when appropriate to reduce radiation dose to as low as reasonably achievable. COMPARISON: CT abdomen pelvis 04/02/2024 FINDINGS: Lower thorax: Lung bases are clear Abdomen: Stomach: Postoperative changes of the stomach. Liver: 1.7 cm hypodensity near the hepatic dome, likely cyst. No intrahepatic ductal distention. Gallbladder: Surgically absent. Pancreas: Within normal limits Spleen: Within normal limits Right kidney: No hydronephrosis. No renal or ureteral calculi. Inferior pole cyst noted. Calyceal div erticulum again suggested with dependent calcification. Left kidney: Multiple exophytic renal cysts noted. Moderate hydronephrosis. Ureteral stent in place. 3 mm distal ureteral stone (series 201, image 92). Adrenal glands: Within normal limits Vascular structures: Within normal limits (although limited evaluation on noncontrast exam). Lymph nodes: No lymphadenopathy by size criteria Pelvis: Small bowel: No significant distention. Appendix: Within normal limits Colon: No distention or acute pericolonic edema. Peritoneum: No free air. Small volume of free fluid in the pelvis. Bones: No acute bone findings. Bladder: Unremarkable. Reproductive organs: No acute findings. Note that evaluation of the bowel and solid organs is somewhat limited due to lack of intravenous and oral contrast. IMPRESSION: 1. Moderate left-sided hydronephrosis with left ureteral stent in place. 3 mm left distal ureteral stone. 2. Small volume of free fluid in the pelvis, could be physiologic. Electronically signed by: Gabrielle Burton MD 04/12/2024 06:09 AM [facility] Z9 Due to temporary technical issues with the [email or web address] reporting system, reports are being natalia d by the in-house radiologist without review as a courtesy to ensure prompt reporting the interpreting radiologist is fully responsible for the content of the report. Transcribed Date/Time: 04/12/2024 6:17 AM
[2024-04-12] MEDS ORDERED: HYDROCODONE/APAP 5/325 MG TAB ONE (06:41)
[2024-04-12 06:55] LABS: Specific Gravity 1.026 (1.005-1.030); Sqamous Epithelial <5 /HPF (None Seen); Urine Bacteria None Seen /HPF (<20); Urine Bilirubin NEGATIVE (Negative); Urine Blood 3+ (OVER) (Negative); Urine Clarity Extremely Turbid (Clear); Urine Color Light-Orange (Yellow); Urine Crystals Unidentified Moderate /HPF (None Seen); Urine Culture Reflex Order REFLEXED; Urine Glucose TRACE (Negative); Urine Ketones NEGATIVE (Negative); Urine Microscopic Reflex YN ORDER UMIC; Urine Mucus 1+ /HPF (None Seen); Urine Nitrite NEGATIVE (Negative); Urine Protein 3+ (Negative); Urine RBC >50 /HPF (None Seen); Urine Urobilinogen Normal (Normal); Urine WBC >50 /HPF (<5); Urine WBC Clump Rare /HPF (None Seen); Urine Yeast (Budding) Few /HPF (None Seen)
--- NOTE | 2024-04-12 07:07 | EDPHYS ---
Physician Documentation [facility] Name: Prisca Hernandez Age: 58 yrs Sex: Female : 1965 Arrival Date: 04/12/2024 Time: 04:07 Bed 15 Private MD: Ac George ED Physician Jagdish Dhillon HPI: 04/12 04:22 This 58 yrs old Female presents to ER via Unassigned with complaints of sp4 Possible Kidney Stone, Low Back Pain, Abdominal Pain. 04:53 Patient was diagnosed with left ureteral calculus 7 mm with hydronephrosis and sp4 transferred to [facility] on 04/02/2024. Patient received left ureteral stent on Wednesday04/03/2024. Patient urologist is Dr. iWlfrido Galeano with Urology at [facility]. Patient reports that she is scheduled to get lithotripsy on 04/17/2024. Also patient reports that she has currently taking ciprofloxacin twice a day.. Historical: - Allergies: 04:44 No NSAIDs; vc1 - PMHx: 04:44 Brain tumor Non-malignan; Depression; Fibromyalgia; High Cholesterol; Hypertension; vc1 Migraines; - PSHx: 04:44 gastric sleeve; Left ureter stent; vc1 - Immunization history:: Client reports receiving the 2nd dose of the Covid vaccine, Flu vaccine is not up to date. - Infectious Disease History:: Denies. - Social history:: Smoking status: Patient denies any tobacco usage or history of. - Family history:: not pertinent. ROS: 04:53 Constitutional: Negative for fever, chills, and weight loss, positive for left flank sp4 pain 04:53 All other systems are negative, Exam: 04:53 Constitutional: This is a well developed, well nourished patient who is awake, alert, sp4 and in no acute distress. Head/Face: Normocephalic, atraumatic. Eyes: Pupils equal round and reactive to light, extra-ocular motions intact. Lids and lashes normal. Conjunctiva and sclera are not injected. Cornea within normal limits. Periorbital areas with no swelling, redness, or edema. ENT: Nares patent. No nasal discharge, no septal abnormalities noted. Tympanic membranes are normal and external auditory canals are clear. Oropharynx with no redness, swelling, or masses, exudates, or evidence of obstruction, uvula midline. Mucous membranes moist. Neck: Trachea midline, no thyromegaly or masses palpated, and no cervical lymphadenopathy. Supple, full range of motion without nuchal rigidity, or vertebral point tenderness. Chest/axilla: Normal chest wall appearance and motion. Nontender with no deformity. No lesions are appreciated. Cardiovascular: Regular rate and rhythm with a normal S1 and S2. No gallops, murmurs, or rubs. Normal PMI, no JVD. No pulse deficits. Respiratory: Lungs have equal breath sounds bilaterally, clear to auscultation and percussion. No rales, rhonchi or wheezes noted. No increased work of breathing, no retractions or nasal flaring. Abdomen/GI: Soft, with normal bowel sounds. No distension or tympany. No guarding or rebound. No evidence of tenderness throughout. Back: No spinal tenderness. No costovertebral tenderness. Skin: Warm, dry with normal turgor. Normal color with no rashes, no lesions, and no evidence of cellulitis. MS/ Extremity: Pulses equal, no cyanosis. Neurovascular intact. Full, normal range of motion. Neuro: Awake and alert, GCS 15, oriented to person, place, time, and situation. Cranial nerves II-XII grossly intact. Motor strength 5/5 in all extremities. Sensory grossly intact. Psych: Awake, alert, with orientation to person, place and time. Behavior, mood, and affect are within normal limits Vital Signs: 04:41 BP 144 / 100; Pulse 91; Resp 18; Pulse Ox 99% ; Weight 77.11 kg; Height 5 ft. 7 in. ; vc1 Pain 9/10; 04:45 BP 125 / 94; Pulse 90; Resp 24; Temp 98.4; Pulse Ox 98% on R/A; aa10 05:18 BP 128 / 82; Pulse 66; Resp 18; Pulse Ox 95% ; br2 06:23 BP 134 / 77; Pulse 74; Resp 18; Pulse Ox 96% ; br2 07:26 BP 128 / 73; Pulse 68; Resp 15; Pulse Ox 99% ; bp 04:41 Body Mass Index 26.63 (77.11 kg, 170.18 cm) vc1 04:41 Pain Scale: Adult vc1 Israel Coma Score: 04:53 Eye Response: spontaneous(4). Motor Response: obeys commands(6). Verbal Response: sp4 oriented(5). Total: 15. MDM: 04:25 Medical Screening Exam initiated sp4 04:53 Differential diagnosis: arthritis, strain, fracture, sciatica, contusion, UTI. Data sp4 reviewed: vital signs, nurses notes, old medical records, lab test result(s), radiologic studies, CT scan. 06:24 ED course: CLINICAL HISTORY: 58 years Female; ABD PAIN; NO CONTRAST TECHNIQUE: CT of sp4 the abdomen and pelvis without contrast. All CT scans at this facility use dose modulation, iterative reconstruction, and/or weight based dosing when appropriate to reduce radiation dose to as low as reasonably achievable. COMPARISON: CT abdomen pelvis 04/02/2024 FINDINGS: Lower thorax: Lung bases are clear Abdomen: Stomach:Postoperative changes of the stomach. Liver:1.7 cm hypodensity near the hepatic dome, likely cyst. No intrahepatic ductal distention. Gallbladder:Surgically absent. Pancreas:Within normal limits Spleen:Within normal limits Right kidney:No hydronephrosis. No renal or ureteral calculi. Inferior pole cyst noted. Calyceal diverticulum again suggested with dependent calcification. Left kidney:Multiple exophytic renal cysts noted. Moderate hydronephrosis. Ureteral stent in place. 3 mm distal ureteral stone (series 201, image 92). Adrenal glands:Within normal limits Vascular structures:Within normal limits (although limited evaluation on noncontrast exam). Lymph nodes:No lymphadenopathy by size criteria Pelvis: Small bowel:No significant distention. Appendix:Within normal limits Colon:No distention or acute pericolonic edema. Peritoneum: No free air. Small volume of free fluid in the pelvis. Bones: No acute bone findings. Bladder: Unremarkable. Reproductive organs: No acute findings. Note that evaluation of the bowel and solid organs is somewhat limited due to lack of intravenous and oral contrast. IMPRESSION: 1. Moderate left-sided hydronephrosis with left ureteral stent in place. 3 mm left distal ureteral stone. 2. Small volume of free fluid in the pelvis, could be physiologic. Electronically signed by: Gabrielle Burton MD 04/12/2024 06:09 AM ADVISORY APPLICATION DEVELOPER RP. ED course: Old CT review - Exam Date: 04/02/24 EXAMINATION: Stone Protocol CLINICAL INDICATION: Abdominal pain. Left flank pain TECHNIQUE: CT abdomen and pelvis was performed, without IV contrast, as per department protocol. Oral contrast not given. Axial, sagittal and coronal reconstructions were obtained. One or more of the following dose reduction techniques were used: Automated exposure control, adjustment of the mA and kV according to the patient size, and iterative reconstruction. Unless otherwise specified, incidental findings do not require dedicated imaging follow-up. COMPARISON: No prior exam. FINDINGS: The lack of intravenous and oral contrast limits the sensitivity of this exam for evaluation of solid visceral organs, vascular structures, and bowel Mild to moderate left hydronephrosis. 7 mm calculus proximal left ureter. Many exophytic left renal cyst. The largest 7.6 cm. Calcification right kidney may lie within a calyceal diverticulum. Cholecystectomy. 1.6 cm hepatic cyst. The spleen, pancreas and adrenals grossly normal. Post surgical changes involve the stomach. No evidence of diverticulitis. No adnexal mass Peritoneal shunt present. IMPRESSION: 7 mm calculus proximal left ureter results in mild to moderate left hydronephrosis. 04/12 04:25 Order name: CBC with Diff; Complete Time: 06:23 sp4 04/12 04:25 Order name: CMP; Complete Time: 06:23 sp4 04/12 04:25 Order name: Lipase; Complete Time: 06:23 sp4 04/12 04:25 Order name: Urinalysis w/ reflexes; Complete Time: 07:05 sp4 04/12 07:06 Order name: Urine Culture EDLA 04/12 04:25 Order name: CT Abd/Pelvis - Without Contrast; Complete Time: 06:23 sp4 04/12 04:25 Order name: IV Saline Lock; Complete Time: 04:46 sp4 04/12 04:25 Order name: Labs collected and sent; Complete Time: 05:47 sp4 Administered Medications: 04:47 Drug: TORadol - Ketorolac IVP 30 mg IVP once Route: IVP; Site: right antecubital; br2 06:12 Follow up: Response: No adverse reaction; Marked relief of symptoms aa10 04:47 Drug: Ondansetron IVP 4 mg IVP once; over 2 minutes Route: IVP; Site: right antecubital;br2 06:12 Follow up: Response: No adverse reaction; Marked relief of symptoms aa10 04:47 Drug: morphine IVP or IV 4 mg IVP once over 4 mins Route: IVP; Infused Over: 4 mins; br2 Site: right antecubital; 06:12 Follow up: Response: No adverse reaction; Marked relief of symptoms aa10 04:48 Drug: Famotidine IVP 20 mg IVP once; dilute with 10 mL 0.9% NaCl; give over 2 minutes br2 Route: IVP; Site: right antecubital; 06:11 Follow up: Response: No adverse reaction; Marked relief of symptoms aa10 04:48 Drug: NS 0.9% IV 1000 ml IV at 1 bolus Per protocol; to be given as a bolus over 60 br2 minutes Route: IV; Rate: 1 bolus; Site: right antecubital; 06:11 Follow up: IV Status: Completed infusion; IV Intake: 1000ml aa10 06:12 Follow up: Response: No adverse reaction; Marked relief of symptoms aa10 06:55 Drug: HYDROcodone-acetaminophen PO 5 mg-325 mg 2 tabs PO once Route: PO; br2 07:27 Follow up: Response: No adverse reaction bp 06:55 Drug: Ondansetron IVP 4 mg IVP once; over 2 minutes Route: IVP; Site: right antecubital;br2 07:27 Follow up: Response: No adverse reaction bp Disposition Summary: 04/12/24 07:07 Discharge Ordered Notes: Location: Home sp3 Condition: Stable sp3 Diagnosis - Flank pain, UTI sp3 Followup: sp3 - With: Private Physician - When: Upon discharge from the Emergency Department - Reason: Continuance of care Discharge Instructions: - Discharge Summary Sheet sp4 - Kidney Stones, [id number] sp4 Forms: - Medication Reconciliation Form sp3 - Antibiotic Education sp3 - Prescription Opioid Use sp3 - Patient Portal Instructions sp3 - Leadership Thank You Letter sp3 Prescriptions: - Flomax 0.4 mg Oral capsule - take 1 capsule ORAL route every 24 hours for 30 days; 30 capsule; Refills: 0, sp4 Product Selection Permitted - acetaminophen-codeine 300-60 mg Oral tablet - take 1 tablet ORAL route 3 times per day PRN pain; 20 tablet; Refills: 0, sp4 Product Selection Permitted - ondansetron 8 mg Oral Tablet,disintegrating - take 1 tablet ORAL route every 8 hours PRN nausea; 30 tablet; Refills: 0, sp4 Product Selection Permitted Signatures: Dispatcher [employer] Jagdish Lei MD MD sp3 Shraddha Palma RN RN vc1 Jae Chou MD MD sp4 Giovanna Odonnell RN RN br2 Manuelito Charles RN bp Agustin Beckman RN aa10
--- NOTE | 2024-04-12 07:07 | ER ---
Nurse's Notes [facility] Name: Prisca Hernandez Age: 58 yrs Sex: Female : 1965 Arrival Date: 04/12/2024 Time: 04:07 Bed 15 Private MD: Ac George Diagnosis: Flank pain, UTI Presentation: 04/12 04:41 Chief complaint: Patient states: Left lower back and abdomen pain. I have a 7mm kidney vc1 stone. They place a stent and I am supposed to go Wednesday to have it busted up. Coronavirus screen: Client denies travel out of the [place] in the last 14 days. At this time, the client does not indicate any symptoms associated with coronavirus-19. Ebola Screen: Patient negative for fever greater than or equal to 101.5 degrees Fahrenheit, and additional compatible Ebola Virus Disease symptoms Patient denies exposure to infectious person. Patient denies travel to an Ebola-affected area in the 21 days before illness onset. No symptoms or risks identified at this time. Initial Sepsis Screen: Does the patient meet any 2 criteria? HR > 90 bpm. No. Patient's initial sepsis screen is negative. Does the patient have a suspected source of infection? No. Patient's initial sepsis screen is negative. Risk Assessment: Do you want to hurt yourself or someone else? Patient reports no desire to harm self or others. Onset of symptoms was April 12, 2024. Care prior to arrival:. Activity prior to arrival: None. Mechanism of Injury: No Mechanism of Injury. Transition of care: patient was not received from another setting of care. 04:41 Method Of Arrival: Wheelchair vc1 04:41 Acuity: ROGER 3 vc1 Triage Assessment: 04:45 General: Appears in no apparent distress. uncomfortable, Behavior is cooperative. Pain: vc1 Complains of pain in left low back Pain radiates to anterior aspect of left lateral abdomen Pain currently is 9 out of 10 on a pain scale. Noted to be grimacing, moaning. EENT: No deficits noted. No signs and/or symptoms were reported regarding the EENT system. Neuro: Level of Consciousness is awake, alert, obeys commands, Oriented to person, place, time, situation, Appropriate for age. Cardiovascular: Capillary refill < 3 seconds Patient's skin is warm and dry. Respiratory: Airway is patent Respiratory effort is even, unlabored, Respiratory pattern is regular, symmetrical. GI: Abdomen is round non-distended, Reports lower abdominal pain. : Reports inability to void, pain in left flank(s), in lower back Pain is 9 out of 10 on a pain scale. Derm: Skin is intact, is healthy with good turgor, Skin is dry, Skin is normal, Skin temperature is warm. Musculoskeletal: Circulation, motion, and sensation intact. Range of motion: intact in all extremities. Historical: - Allergies: 04:44 No NSAIDs; vc1 - PMHx: 04:44 Brain tumor Non-malignan; Depression; Fibromyalgia; High Cholesterol; Hypertension; vc1 Migraines; - PSHx: 04:44 gastric sleeve; Left ureter stent; vc1 - Immunization history:: Client reports receiving the 2nd dose of the Covid vaccine, Flu vaccine is not up to date. - Infectious Disease History:: Denies. - Social history:: Smoking status: Patient denies any tobacco usage or history of. - Family history:: not pertinent. Screenin:45 [facility] ED Fall Risk Assessment (Adult) History of falling in the last 3 months, vc1 including since admission No falls in past 3 months (0 pts) Confusion or Disorientation No (0 pts) Intoxicated or Sedated No (0 pts) Impaired Gait No (0 pts) Mobility Assist Device Used No (0 pt) Altered Elimination No (0 pt) Score/Fall Risk Level 0 - 2 = Low Risk Oriented to surroundings, Maintained a safe environment, Educated pt \T\ family on fall prevention, incl call for assistance when getting out of bed. Abuse screen: Denies threats or abuse. Nutritional screening: No deficits noted. Tuberculosis screening: No symptoms or risk factors identified. Assessment: 05:13 General: Appears distressed, uncomfortable, Behavior is cooperative, appropriate for aa10 age, crying, restless, Smells of Reports pain. Pain: Complains of pain in abdomen and back Pain currently is 9 out of 10 on a pain scale. at worst was 10 out of 10 on a pain scale. level that patient reports is acceptable is 0 out of 10 on a pain scale. Quality of pain is described as aching, tender, Pain began suddenly, 1 day ago. Is continuous, Alleviated by medications, repositioning, Aggravated by increased activity, Noted to be crying, grimacing, guarding, moaning, Also complains of inability to work, sleeplessness, Current management is with Morphine. Cardiovascular: No deficits noted. Capillary refill < 3 seconds Rhythm is sinus rhythm. Respiratory: No deficits noted. Reports pain with movement since today. GI: Bowel sounds present X 4 quads. : Reports reduced urine output. 05:21 GI:. GI: Abdomen is tender to palpation in posterior aspect of right lateral abdomen, aa10 anterior aspect of right lateral abdomen and anterior aspect of left lateral abdomen. 05:45 Reassessment: Patient appears in no apparent distress at this time. No changes from aa10 previously documented assessment. Patient and/or family updated on plan of care and expected duration. Pain level reassessed. Patient is alert, oriented x 3, equal unlabored respirations, skin warm/dry/pink. 06:55 Reassessment: Patient and/or family updated on plan of care and expected duration. Pain br2 level reassessed. Patient is alert, oriented x 3, equal unlabored respirations, skin warm/dry/pink. pt requesting nausea meds. Vital Signs: 04:41 BP 144 / 100; Pulse 91; Resp 18; Pulse Ox 99% ; Weight 77.11 kg; Height 5 ft. 7 in. ; vc1 Pain 9/10; 04:45 BP 125 / 94; Pulse 90; Resp 24; Temp 98.4; Pulse Ox 98% on R/A; aa10 05:18 BP 128 / 82; Pulse 66; Resp 18; Pulse Ox 95% ; br2 06:23 BP 134 / 77; Pulse 74; Resp 18; Pulse Ox 96% ; br2 07:26 BP 128 / 73; Pulse 68; Resp 15; Pulse Ox 99% ; bp 04:41 Body Mass Index 26.63 (77.11 kg, 170.18 cm) vc1 04:41 Pain Scale: Adult vc1 Israel Coma Score: 04:53 Eye Response: spontaneous(4). Motor Response: obeys commands(6). Verbal Response: sp4 oriented(5). Total: 15. ED Course: 04:09 Patient arrived in ED. gm2 04:11 Ac George MD is Private Physician. gm2 04:22 Jae Chou MD is Attending Physician. sp4 04:33 Giovanna Odonnell, RN is Primary Nurse. br2 04:43 Triage completed. vc1 04:45 Arm band placed on right wrist. vc1 04:45 Patient has correct armband on for positive identification. Bed in low position. Call vc1 light in reach. Adult w/ patient. Pulse ox on. NIBP on. 05:02 CT Abd/Pelvis - Without Contrast In Process Unspecified. EDMS 05:22 Provided Education on: about plan of care. aa10 05:22 No provider procedures requiring assistance completed. aa10 05:22 Inserted saline lock: 18 gauge in right antecubital area, using aseptic technique. aa10 05:46 CMP Sent. aa10 05:47 Lipase Sent. aa10 07:05 Attending Physician role handed off by Jae Chou MD sp3 07:05 Jagdish Dhillon MD is Attending Physician. sp3 07:26 IV discontinued, intact, bleeding controlled, No redness/swelling at site. Pressure bp dressing applied. Administered Medications: 04:47 Drug: TORadol - Ketorolac IVP 30 mg IVP once Route: IVP; Site: right antecubital; br2 06:12 Follow up: Response: No adverse reaction; Marked relief of symptoms aa10 04:47 Drug: Ondansetron IVP 4 mg IVP once; over 2 minutes Route: IVP; Site: right antecubital;br2 06:12 Follow up: Response: No adverse reaction; Marked relief of symptoms aa10 04:47 Drug: morphine IVP or IV 4 mg IVP once over 4 mins Route: IVP; Infused Over: 4 mins; br2 Site: right antecubital; 06:12 Follow up: Response: No adverse reaction; Marked relief of symptoms aa10 04:48 Drug: Famotidine IVP 20 mg IVP once; dilute with 10 mL 0.9% NaCl; give over 2 minutes br2 Route: IVP; Site: right antecubital; 06:11 Follow up: Response: No adverse reaction; Marked relief of symptoms aa10 04:48 Drug: NS 0.9% IV 1000 ml IV at 1 bolus Per protocol; to be given as a bolus over 60 br2 minutes Route: IV; Rate: 1 bolus; Site: right antecubital; 06:11 Follow up: IV Status: Completed infusion; IV Intake: 1000ml aa10 06:12 Follow up: Response: No adverse reaction; Marked relief of symptoms aa10 06:55 Drug: HYDROcodone-acetaminophen PO 5 mg-325 mg 2 tabs PO once Route: PO; br2 07:27 Follow up: Response: No adverse reaction bp 06:55 Drug: Ondansetron IVP 4 mg IVP once; over 2 minutes Route: IVP; Site: right antecubital;br2 07:27 Follow up: Response: No adverse reaction bp Medication: 04:47 VIS not applicable for this client. vc1 Intake: 06:11 IV: 1000ml; Total: 1000ml. aa10 Outcome: 07:07 Discharge ordered by . sp3 07:26 Discharged to home ambulatory, with family, bp 07:26 Condition: stable 07:26 Discharge instructions given to patient, Instructed on discharge instructions, follow up and referral plans. medication usage, Demonstrated understanding of instructions, follow-up care, medications, Prescriptions given X 3, 07:27 Patient left the ED. bp Signatures: Dispatcher [employer] EDMS Manuelito Charles RN RN bp Jagdish Dhillon MD MD sp3 Shraddha Palma RN RN vc1 Jae Chou MD MD sp4 Maria L Romero gm2 Giovanna Odonnell RN RN br2 Agustin Beckman RN RN aa10 Corrections: (The following items were deleted from the chart) 04:44 04:41 BP 144 / 10; Pulse 91bpm; Resp 18bpm; Pulse Ox 99%; 77.11 kg; Height 5 ft. 7 in.; vc1 BMI: 26.6; Pain 9/10, Adult; vc1
[2024-04-14 02:01] VITALS: BP 128/73; TEMP 98.4; O2SAT 99
== END 2024-04-12 07:27 | disposition home or self-care (01) ==
LOC: ER 04:07
DX: N39.0 Urinary tract infection, site not specified (principal); R10.9 Unspecified abdominal pain; I10 Essential (primary) hypertension; E78.00 Pure hypercholesterolemia, unspecified; F32.A Depression, unspecified; M79.7 Fibromyalgia; Z98.84 Bariatric surgery status
CPT/HCPCS: 96361; 87088; 85025; 81001; 87086; 36415; 83690; 80053; 74176; 96375; 96374; 99284; J2405 ×2; J7030

== ENCOUNTER 2024-04-16 00:54 | Emergency (ER) | payer BC ==
[2024-04-16] MEDS ORDERED: MORPHINE 4 MG/ML SYR ONE ×2 (01:46→02:50)
[2024-04-16] MEDS ORDERED: MORPHINE 2 MG/ML SYR ONE (01:46)
[2024-04-16] MEDS ORDERED: NA CHLORIDE 0.9% 1,000 ML ONE (01:46)
[2024-04-16] MEDS ORDERED: FLEET ENEMA ADULT PR ONE (01:46)
[2024-04-16] MEDS ORDERED: LACTULOSE 20 GM/30 ML UCUP ONE (01:47)
[2024-04-16] MEDS ORDERED: KETOROLAC 30 MG/ML INJ ONE (01:47)
[2024-04-16] MEDS ORDERED: ONDANSETRON 4 MG/2 ML VIAL ONE ×2 (01:54→02:50)
[2024-04-16 02:00] LABS: Absolute Basophils 0.1 K/uL (0-0.5); Absolute Eosinophils 0.1 K/uL (0-0.5); Absolute Lymphocytes (CBC) 1.2 K/uL (0.7-4.9); Absolute Monocytes 0.6 K/uL (0.1-1.3); Basophils % 0.9 % (0-1.3); Eosinophils % 2.1 % (0-4.4); Hematocrit 34.8 % (36.0-45.0); Hemoglobin 11.6 g/dL (12.0-15.0); Lymphocytes % 17.7 % (15.3-44.8); MCH 29.5 pg (27.0-35.0); MCHC 33.4 g/dL (32.0-36.0); MCV 88.3 fL (80-100); MPV 7.5 fL (7.6-11.3); Monocytes % 7.9 % (3.3-12.3); Neutrophils % 71.4 % (41.7-73.7); Platelets 313 thou/uL (152-406); RBC Red Blood Cell Count 3.94 M/uL (3.86-4.86); Red Cell Distribution Width 14.1 % (12.1-15.2)
[2024-04-16 02:21] LABS: Specific Gravity 1.024 (1.005-1.030); Sqamous Epithelial None Seen /HPF (None Seen); Urine Bacteria None Seen /HPF (<20); Urine Bilirubin NEGATIVE (Negative); Urine Blood 3+ (OVER) (Negative); Urine Clarity Extremely Turbid (Clear); Urine Color Light-Orange (Yellow); Urine Crystals Unidentified Many /HPF (None Seen); Urine Culture Reflex Order REFLEXED; Urine Glucose TRACE (Negative); Urine Ketones NEGATIVE (Negative); Urine Micro Reflex YN NO BILL MICROSCOPIC; Urine Mucus 2+ /HPF (None Seen); Urine Nitrite NEGATIVE (Negative); Urine Protein 3+ (Negative); Urine RBC >50 /HPF (None Seen); Urine Urobilinogen Normal (Normal); Urine WBC 20-50 /HPF (<5); Urine Yeast (Budding) Few /HPF (None Seen)
[2024-04-16 02:25] LABS: Albumin 3.1 g/dL (3.4-5.0); Albumin/Globulin Ratio 0.9 (1.1-1.8); Anion Gap 10.3 mEq/L (5.0-15.0); Bilirubin Total 0.3 mg/dL (0.2-1.0); Globulin 3.4 g/dL (2.3-3.5); Potassium 3.3 mEq/L (3.5-5.1); Protein, Total 6.5 g/dL (6.4-8.2)
--- NOTE | 2024-04-16 02:51 | EDPHYS ---
Physician Documentation [facility] Name: Prisca Hernandez Age: 58 yrs Sex: Female : 1965 Arrival Date: 04/16/2024 Time: 00:54 Bed 6 Private MD: ED Physician Alvin Garcia HPI: 04/16 02:01 This 58 yrs old Female presents to ER via Wheelchair with complaints of Abdominal Pain, rt Possible Kidney Stone. 02:01 Patient had a recent diagnosis of a 7 mm left ureteral stone. She has had a stent that rt was placed. Seen in the ED recently for worsening pains, CT scan showed no complications associated with the stent placement. The patient states that she has had worsening pain tonight as well as difficulty having a bowel movement. She has tried taking MiraLAX, Dulcolax and enemas to no relief. Denies other acute complaints at this time, symptoms are moderate in severity, no other aggravating or alleviating factors. Of note, the patient has a lithotripsy scheduled on Wednesday.. Historical: - Allergies: 01:19 No NSAIDs; al5 - PMHx: 01:19 Brain tumor Non-malignan; Depression; Fibromyalgia; High Cholesterol; Hypertension; al5 Migraines; - PSHx: 01:19 gastric sleeve; Left ureter stent; al5 - Immunization history:: Adult Immunizations up to date. - Infectious Disease History:: Denies. - Social history:: Smoking status: Patient denies any tobacco usage or history of. - Family history:: not pertinent. ROS: 02:01 Constitutional: Negative for fever, chills, and weight loss, Cardiovascular: Negative rt for chest pain, palpitations, and edema, Respiratory: Negative for shortness of breath, cough, wheezing, and pleuritic chest pain, MS/Extremity: Negative for injury and deformity, Skin: Negative for injury, rash, and discoloration, 02:01 Abdomen/GI: Positive for abdominal pain, constipation, 02:01 Back: Positive for flank pain, Negative for injury or acute deformity, Exam: 02:01 Constitutional: This is a well developed, well nourished patient who is awake, alert, rt and in no acute distress. Head/Face: Normocephalic, atraumatic. Chest/axilla: Normal chest wall appearance and motion. Nontender with no deformity. No lesions are appreciated. Cardiovascular: Regular rate and rhythm with a normal S1 and S2. No gallops, murmurs, or rubs. Normal PMI, no JVD. No pulse deficits. Respiratory: Lungs have equal breath sounds bilaterally, clear to auscultation and percussion. No rales, rhonchi or wheezes noted. No increased work of breathing, no retractions or nasal flaring. Abdomen/GI: Soft, non-tender, with normal bowel sounds. No distension or tympany. No guarding or rebound. No evidence of tenderness throughout. Skin: Warm, dry with normal turgor. Normal color with no rashes, no lesions, and no evidence of cellulitis. MS/ Extremity: Pulses equal, no cyanosis. Neurovascular intact. Full, normal range of motion. Neuro: Awake and alert, GCS 15, oriented to person, place, time, and situation. Cranial nerves II-XII grossly intact. Motor strength 5/5 in all extremities. Sensory grossly intact. Cerebellar exam normal. Normal gait. Vital Signs: 01:11 BP 176 / 106; Pulse 114; Resp 18; Temp 98.2; Pulse Ox 98% ; Weight 77.11 kg; Height 5 al5 ft. 7 in. ; Pain 8/10; 01:26 BP 137 / 92; Pulse 92; Resp 17; Pulse Ox 99% on R/A; al5 01:30 BP 153 / 92; Pulse 92; Resp 17; Pulse Ox 98% on R/A; al5 01:45 BP 161 / 95; Pulse 87; Resp 17; Pulse Ox 99% on R/A; al5 02:00 BP 158 / 107; Pulse 91; Resp 18; Pulse Ox 99% on R/A; al5 02:15 BP 165 / 102; Pulse 88; Resp 17; Pulse Ox 100% on R/A; al5 02:30 BP 164 / 98; Pulse 80; Resp 17; Pulse Ox 100% on R/A; al5 03:00 BP 152 / 97; Pulse 82; Resp 16; Pulse Ox 99% on R/A; al5 01:11 Body Mass Index 26.63 (77.11 kg, 170.18 cm) al5 01:11 Pain Scale: Adult al5 MDM: 01:15 Medical Screening Exam initiated rt 03:06 Differential Diagnosis Ureteral stone, UTI, opioid-induced constipation. Data reviewed: rt vital signs, nurses notes, lab test result(s), radiologic studies. I considered the following discharge prescriptions or medication management in the emergency department Medications were administered in the Emergency Department. See MAR. Test considered but Not performed: CT: Patient with 2 CT scans recently, labs are stable compared to before, do not believe that repeat CT scan will offer any more useful information.. Care significantly affected by the following chronic conditions: Kidney stone. Counseling: I had a detailed discussion with the patient and/or guardian regarding the historical points, exam findings, and any diagnostic results supporting the discharge/admit diagnosis, lab results, radiology results, the need for outpatient follow up, to return to the emergency department if symptoms worsen or persist or if there are any questions or concerns that arise at home. Response to treatment: the patient's symptoms have markedly improved after treatment. 04/16 01:29 Order name: CBC with Diff; Complete Time: 02: rt 04/16 01:29 Order name: CMP; Complete Time: rt 04/16 01:29 Order name: UAM; Complete Time: rt 04/16 02:25 Order name: Urine Culture EDMS Administered Medications: 02:05 Drug: NS 0.9% IV 1000 ml IV at 1000 ml once; to be given as a bolus over 60 minutes al5 Route: IV; Rate: 1000 ml; Site: right antecubital; 03:09 Follow up: Response: No adverse reaction; IV Status: Completed infusion; IV Intake: al5 1000ml 02:05 Drug: Ketorolac IVP 15 mg IVP once Route: IVP; Site: right antecubital; al5 02:20 Follow up: Response: No adverse reaction; Pain is decreased al5 02:05 Drug: morphine IVP or IV 6 mg IVP once over 4 mins Route: IVP; Infused Over: 4 mins; al5 Site: right antecubital; 02:20 Follow up: Response: No adverse reaction; Pain is decreased al5 02:05 Drug: Lactulose PO 30 grams 45 ml PO once Volume: 45 ml; Route: PO; al5 02:40 Follow up: Response: No adverse reaction al5 02:05 Drug: Fleet Enema IA 133 ml IA once; may repeat once Route: IA; al5 02:40 Follow up: Response: No adverse reaction al5 02:05 Drug: Ondansetron IVP 4 mg IVP once; over 2 minutes Route: IVP; Site: right antecubital;al5 02:20 Follow up: Response: No adverse reaction; Nausea is decreased al5 03:03 Drug: morphine IVP or IV 4 mg IVP once over 4 mins Route: IVP; Infused Over: 4 mins; al5 Site: right antecubital; 03:13 Follow up: Response: No adverse reaction; Pain is decreased al5 03:03 Drug: Ondansetron IVP 4 mg IVP once; over 2 minutes Route: IVP; Site: right antecubital;al5 03:13 Follow up: Response: No adverse reaction; Nausea is decreased al5 Disposition Summary: 04/16/24 02:50 Discharge Ordered Notes: Location: Home rt Problem: an ongoing problem rt Symptoms: have improved rt Condition: Stable rt Diagnosis - Calculus of ureter rt - Opioid-induced constipation rt Followup: rt - With: Private Physician - When: 1 - 2 days - Reason: Discharge Instructions: - Discharge Summary Sheet rt - Constipation, Adult rt - Kidney Stones rt Forms: - Medication Reconciliation Form rt - Antibiotic Education rt - Prescription Opioid Use rt - Patient Portal Instructions rt - Leadership Thank You Letter rt Prescriptions: - Lactulose 10 gram/15 mL Oral solution - take 30 milliliters ORAL route once daily; 150 milliliter; Refills: 0, Product rt Selection Permitted Signatures: Dispatcher [employer] EDShraddha Cali RN RN [id number] Alvin Garcia MD MD rt Blaire Galvez RN RN al5 Corrections: (The following items were deleted from the chart) 01:30 01:30 CBC+H.LAB.BRZ ordered. EDMS EDMS 01:30 01:30 COMPREHENSIVE METABOLIC PANEL+C.LAB.BRZ ordered. EDMS EDMS 01:30 01:30 Urinalysis W/Microscopic+U.LAB.BRZ ordered. EDMS EDMS
--- NOTE | 2024-04-16 02:51 | ER ---
Nurse's Notes [facility] Name: Prisca Hernandez Age: 58 yrs Sex: Female : 1965 Arrival Date: 04/16/2024 Time: 00:54 Bed 6 Private MD: Diagnosis: Calculus of ureter;Opioid-induced constipation Presentation: 04/16 01:11 Chief complaint: Patient states: came in about a week ago and was diagnosed with a al5 kidney stone, to have an operation done on Wednesday. patient was sent home with medications to help with pain until time of operation. patient c/o lower abdominal pain and flank pain, more so on the left side. Coronavirus screen: At this time, the client does not indicate any symptoms associated with coronavirus-19. Ebola Screen: No symptoms or risks identified at this time. Initial Sepsis Screen: Does the patient meet any 2 criteria? HR > 90 bpm. Does the patient have a suspected source of infection? No. Patient's initial sepsis screen is negative. Risk Assessment: Do you want to hurt yourself or someone else? Patient reports no desire to harm self or others. Onset of symptoms was April 09, 2023. 01:11 Method Of Arrival: Wheelchair al5 01:11 Acuity: ROGER 3 al5 Triage Assessment: : General: Appears in no apparent distress. uncomfortable, ill, Behavior is cooperative. al5 Pain: Complains of pain in left low back, right low back, right lower quadrant and left lower quadrant Pain currently is 8 out of 10 on a pain scale. EENT: No signs and/or symptoms were reported regarding the EENT system. Neuro: Level of Consciousness is awake, alert, obeys commands, Oriented to person, place, time, situation. Cardiovascular: Capillary refill < 3 seconds Patient's skin is warm and dry. Respiratory: Airway is patent Respiratory effort is even, unlabored, Respiratory pattern is regular, symmetrical. GI: Abdomen is non-distended, Reports lower abdominal pain. : Reports pain in bilateral flank(s). Derm: Skin is intact, is healthy with good turgor, Skin is pink, warm \T\ dry. normal. Musculoskeletal: No signs and/or symptoms reported regarding the musculoskeletal system. Historical: - Allergies: : No NSAIDs; al5 - PMHx: 01:19 Brain tumor Non-malignan; Depression; Fibromyalgia; High Cholesterol; Hypertension; al5 Migraines; - PSHx: 01:19 gastric sleeve; Left ureter stent; al5 - Immunization history:: Adult Immunizations up to date. - Infectious Disease History:: Denies. - Social history:: Smoking status: Patient denies any tobacco usage or history of. - Family history:: not pertinent. Screenin:[address] [facility] ED Fall Risk Assessment (Adult) History of falling in the last 3 months, al5 including since admission No falls in past 3 months (0 pts) Confusion or Disorientation No (0 pts) Intoxicated or Sedated No (0 pts) Impaired Gait No (0 pts) Mobility Assist Device Used No (0 pt) Altered Elimination No (0 pt) Score/Fall Risk Level 0 - 2 = Low Risk Oriented to surroundings, Maintained a safe environment, Hourly rounding (assess needs \T\ fall precautionary measures) done. Abuse screen: Denies threats or abuse. Denies injuries from another. Nutritional screening: No deficits noted. Tuberculosis screening: No symptoms or risk factors identified. Assessment: 01:21 Reassessment: see triage assessment. al5 02:20 Reassessment: Patient appears in no apparent distress at this time. Patient and/or al5 family updated on plan of care and expected duration. Pain level reassessed. Patient is alert, oriented x 3, equal unlabored respirations, skin warm/dry/pink. pain decreased. 02:40 Reassessment: Patient appears in no apparent distress at this time. states after enema al5 started to have some abdominal cramping, but is tolerable. 03:01 Reassessment: Patient appears in no apparent distress at this time. Patient and/or al5 family updated on plan of care and expected duration. Pain level reassessed. Patient is alert, oriented x 3, equal unlabored respirations, skin warm/dry/pink. Patient states feeling better. Vital Signs: 01:11 BP 176 / 106; Pulse 114; Resp 18; Temp 98.2; Pulse Ox 98% ; Weight 77.11 kg; Height 5 al5 ft. 7 in. ; Pain 8/10; 01:26 BP 137 / 92; Pulse 92; Resp 17; Pulse Ox 99% on R/A; al5 01:30 BP 153 / 92; Pulse 92; Resp 17; Pulse Ox 98% on R/A; al5 01:45 BP 161 / 95; Pulse 87; Resp 17; Pulse Ox 99% on R/A; al5 02:00 BP 158 / 107; Pulse 91; Resp 18; Pulse Ox 99% on R/A; al5 02:15 BP 165 / 102; Pulse 88; Resp 17; Pulse Ox 100% on R/A; al5 02:30 BP 164 / 98; Pulse 80; Resp 17; Pulse Ox 100% on R/A; al5 03:00 BP 152 / 97; Pulse 82; Resp 16; Pulse Ox 99% on R/A; al5 01:11 Body Mass Index 26.63 (77.11 kg, 170.18 cm) al5 01:11 Pain Scale: Adult al5 ED Course: 00:57 Patient arrived in ED. gm2 00:57 Alvin Garcia MD is Attending Physician. rt 01:11 Blaire Galvez RN is Primary Nurse. al5 01:17 Triage completed. al5 01:21 Arm band placed on right wrist. Patient placed in the treatment room, on a stretcher, al5 on pulse oximetry. 01:21 Patient has correct armband on for positive identification. Bed in low position. Call al5 light in reach. Side rails up X 1. at bedside. Provided Education on: plan of care. 01:21 No provider procedures requiring assistance completed. al5 02:04 Inserted saline lock: 20 gauge in right antecubital area, using aseptic technique. [id number] Blood collected. Flushed with 10 mL NS. 03:13 IV discontinued, intact, bleeding controlled, No redness/swelling at site. Pressure al5 dressing applied. Administered Medications: 02:05 Drug: NS 0.9% IV 1000 ml IV at 1000 ml once; to be given as a bolus over 60 minutes al5 Route: IV; Rate: 1000 ml; Site: right antecubital; 03:09 Follow up: Response: No adverse reaction; IV Status: Completed infusion; IV Intake: al5 1000ml 02:05 Drug: Ketorolac IVP 15 mg IVP once Route: IVP; Site: right antecubital; al5 02:20 Follow up: Response: No adverse reaction; Pain is decreased al5 02:05 Drug: morphine IVP or IV 6 mg IVP once over 4 mins Route: IVP; Infused Over: 4 mins; al5 Site: right antecubital; 02:20 Follow up: Response: No adverse reaction; Pain is decreased al5 02:05 Drug: Lactulose PO 30 grams 45 ml PO once Volume: 45 ml; Route: PO; al5 02:40 Follow up: Response: No adverse reaction al5 02:05 Drug: Fleet Enema NM 133 ml NM once; may repeat once Route: NM; al5 02:40 Follow up: Response: No adverse reaction al5 02:05 Drug: Ondansetron IVP 4 mg IVP once; over 2 minutes Route: IVP; Site: right antecubital;al5 02:20 Follow up: Response: No adverse reaction; Nausea is decreased al5 03:03 Drug: morphine IVP or IV 4 mg IVP once over 4 mins Route: IVP; Infused Over: 4 mins; al5 Site: right antecubital; 03:13 Follow up: Response: No adverse reaction; Pain is decreased al5 03:03 Drug: Ondansetron IVP 4 mg IVP once; over 2 minutes Route: IVP; Site: right antecubital;al5 03:13 Follow up: Response: No adverse reaction; Nausea is decreased al5 Medication: 01:22 VIS not applicable for this client. al5 Intake: 03:09 IV: 1000ml; Total: 1000ml. al5 Outcome: 02:50 Discharge ordered by . rt 03:13 Discharged to home ambulatory, with significant other, al5 03:13 Condition: good 03:13 Discharge instructions given to patient, significant other, Instructed on discharge instructions, follow up and referral plans. medication usage, Demonstrated understanding of instructions, follow-up care, medications, Prescriptions given X 1, 03:14 Patient left the ED. al5 Signatures: Alvin Garcia MD MD rt Maria L Romero gm2 Blaire Galvez RN RN al5 javier barragan [id number]
[2024-04-16 04:31] VITALS: TEMP 98.2
[2024-04-16 04:47] VITALS: BP 152/97; O2SAT 99
== END 2024-04-16 03:14 | disposition home or self-care (01) ==
LOC: ER 00:54
DX: N20.1 Calculus of ureter (principal); K59.03 Drug induced constipation; T40.2X5A Adverse effect of other opioids, initial encounter; I10 Essential (primary) hypertension; E78.00 Pure hypercholesterolemia, unspecified; M79.7 Fibromyalgia
CPT/HCPCS: 96361; 87088; 85025; 81001; 87086; 36415; 80053; 96375; 96374; 99284; J2270; J2405 ×2; J7030

== ENCOUNTER 2024-04-19 23:10 | Emergency (ER) | payer BC ==
[2024-04-19] MEDS ORDERED: KETOROLAC 30 MG/ML INJ ONE (23:41)
[2024-04-19] MEDS ORDERED: ONDANSETRON 4 MG/2 ML VIAL ONE (23:41)
[2024-04-19] MEDS ORDERED: NA CHLORIDE 0.9% 1,000 ML ONE (23:42)
[2024-04-19 23:52] LABS: Absolute Basophils 0.1 K/uL (0-0.5); Absolute Eosinophils 0.2 K/uL (0-0.5); Absolute Lymphocytes (CBC) 1.6 K/uL (0.7-4.9); Absolute Monocytes 0.9 K/uL (0.1-1.3); Absolute Neutrophil 5.8 K/uL (1.8-8.0); Basophils % 1.2 % (0-1.3); Eosinophils % 2.2 % (0-4.4); Hematocrit 34.2 % (36.0-45.0); Hemoglobin 11.6 g/dL (12.0-15.0); Lymphocytes % 18.9 % (15.3-44.8); MCH 29.4 pg (27.0-35.0); MCHC 33.8 g/dL (32.0-36.0); MCV 87.1 fL (80-100); MPV 8.5 fL (7.6-11.3); Monocytes % 10.2 % (3.3-12.3); Neutrophils % 67.5 % (41.7-73.7); Platelets 273 thou/uL (152-406); RBC Red Blood Cell Count 3.93 M/uL (3.86-4.86); Red Cell Distribution Width 14.1 % (12.1-15.2)
[2024-04-19] MEDS ORDERED: FENTANYL CITR 100 MCG/2 ML ONE (23:59)
[2024-04-20 00:11] LABS: Albumin 3.2 g/dL (3.4-5.0); Albumin/Globulin Ratio 0.9 (1.1-1.8); Anion Gap 9.4 mEq/L (5.0-15.0); Bilirubin Total 0.2 mg/dL (0.2-1.0); Globulin 3.7 g/dL (2.3-3.5); Potassium 3.4 mEq/L (3.5-5.1); Protein, Total 6.9 g/dL (6.4-8.2)
[2024-04-20] MEDS ORDERED: MAGNESIUM CITRATE 300 ML BOT ONE (00:47)
[2024-04-20] MEDS ORDERED: DICYCLOMINE HCL 10 MG CAP ONE (00:57)
[2024-04-20] MEDS ORDERED: FENTANYL CITR 100 MCG/2 ML ONE (00:58)
[2024-04-20] MEDS ORDERED: METOCLOPRAMIDE 10 MG/2mL INJ ONE (00:58)
--- NOTE | 2024-04-20 01:16 | EDPHYS ---
Physician Documentation [facility] Name: Prisca Hernandez Age: 58 yrs Sex: Female : 1965 Arrival Date: 04/19/2024 Time: 23:10 Bed 6 Private MD: ED Physician Jae Chou HPI: 04/19 23:30 This 58 yrs old Female presents to ER via Unassigned with complaints of sp4 Constipation. 04/20 04:38 58-year-old female presents with acute moderate abdominal pain associated with sp4 constipation. Patient states her last bowel movement was 5 days ago.. Historical: - Allergies: 04/19 23:32 No NSAIDs; ay - PMHx: 23:32 Brain tumor Non-malignan; Depression; Fibromyalgia; High Cholesterol; Hypertension; ay Migraines; - PSHx: 23:32 gastric sleeve; Left ureter stent; ay - Immunization history:: Client reports receiving the 1st dose of the Covid vaccine. - Infectious Disease History:: Denies. - Family history:: not pertinent. - Social history:: Smoking status: Patient denies any tobacco usage or history of. ROS: 04/20 04:38 Constitutional: Negative for fever, chills, and weight loss, positive abdominal pain, sp4 positive constipation Eyes: Negative for injury, pain, redness, and discharge, All other systems are negative, Exam: 04:38 Constitutional: This is a well developed, well nourished patient who is awake, alert, sp4 patient is uncomfortable appearing Head/Face: Normocephalic, atraumatic. Eyes: Pupils equal round and reactive to light, extra-ocular motions intact. Lids and lashes normal. Conjunctiva and sclera are not injected. Cornea within normal limits. Periorbital areas with no swelling, redness, or edema. ENT: Nares patent. No nasal discharge, no septal abnormalities noted. Tympanic membranes are normal and external auditory canals are clear. Oropharynx with no redness, swelling, or masses, exudates, or evidence of obstruction, uvula midline. Mucous membranes moist. Neck: Trachea midline, no thyromegaly or masses palpated, and no cervical lymphadenopathy. Supple, full range of motion without nuchal rigidity, or vertebral point tenderness. Chest/axilla: Normal chest wall appearance and motion. Nontender with no deformity. No lesions are appreciated. Cardiovascular: Regular rate and rhythm with a normal S1 and S2. No gallops, murmurs, or rubs. Normal PMI, no JVD. No pulse deficits. Respiratory: Lungs have equal breath sounds bilaterally, clear to auscultation and percussion. No rales, rhonchi or wheezes noted. No increased work of breathing, no retractions or nasal flaring. Abdomen/GI: Soft, with normal bowel sounds. No distension or tympany. No guarding or rebound. No evidence of tenderness throughout. Back: No spinal tenderness. No costovertebral tenderness. Female : Normal external genitalia. Female fruit thinner present for exam. Digital rectal exam reveals no signs of fecal impaction normal anal tone. Skin: Warm, dry with normal turgor. Normal color with no rashes, no lesions, and no evidence of cellulitis. MS/ Extremity: Pulses equal, no cyanosis. Neurovascular intact. Full, normal range of motion. Neuro: Awake and alert, GCS 15, oriented to person, place, time, and situation. Cranial nerves II-XII grossly intact. Motor strength 5/5 in all extremities. Sensory grossly intact. Psych: Awake, alert, with orientation to person, place and time. Behavior, mood, and affect are within normal limits Vital Signs: 04/19 23:26 BP 160 / 101; Pulse 104; Resp 20; Temp 98.3; Pulse Ox 96% ; vc1 04/20 00:00 BP 129 / 85; Pulse 77; Resp 20; Pulse Ox 96% on R/A; ay 01:54 BP 128 / 83; Pulse 90; Resp 19; Pulse Ox 99% ; ay [place] Coma Score: 04/19 23:32 Eye Response: spontaneous(4). Motor Response: obeys commands(6). Verbal Response: ay oriented(5). Total: 15. 04/20 04:38 Eye Response: spontaneous(4). Motor Response: obeys commands(6). Verbal Response: sp4 oriented(5). Total: 15. MDM: 04/19 23:32 Medical Screening Exam initiated sp4 23:34 ED course: CT review - EXAM DESCRIPTION: Abdomen Pelvis Wo Contrast RadLex: CTABDOMEN sp4 PELVIS WITHOUT IV CONTRAST CLINICAL HISTORY: 58 years Female; ABD PAIN; NO CONTRAST TECHNIQUE: CT of the abdomen and pelvis without contrast. All CT scans at this facility use dose modulation, iterative reconstruction, and/or weight based dosing when appropriate to reduce radiation dose to as low as reasonably achievable. COMPARISON: CT abdomen pelvis 04/02/2024 FINDINGS: Lower thorax: Lung bases are clear Abdomen: Stomach:Postoperative changes of the stomach. Liver:1.7 cm hypodensity near the hepatic dome, likely cyst. No intrahepatic ductal distention. Gallbladder:Surgically absent. Pancreas:Within normal limits Spleen:Within normal limits Right kidney:No hydronephrosis. No renal or ureteral calculi. Inferior pole cyst noted. Calyceal diverticulum again suggested with dependent calcification. Left kidney:Multiple exophytic renal cysts noted. Moderate hydronephrosis. Ureteral stent in place. 3 mm distal ureteral stone (series 201, image 92). Adrenal glands:Within normal limits Vascular structures:Within normal limits (although limited evaluation on noncontrast exam). Lymph nodes:No lymphadenopathy by size criteria Pelvis: Small bowel:No significant distention. Appendix:Within normal limits Colon:No distention or acute pericolonic edema. Peritoneum: No free air. Small volume of free fluid in the pelvis. Bones: No acute bone findings. Bladder: Unremarkable. Reproductive organs: No acute findings. Note that evaluation of the bowel and solid organs is somewhat limited due to lack of intravenous and oral contrast. IMPRESSION: 1. Moderate left-sided hydronephrosis with left ureteral stent in place. 3 mm left distal ureteral stone. 2. Small volume of free fluid in the pelvis, could be physiologic. Electronically signed by: Gabrielle Burton MD 04/12/2024. 04/20 01:15 ED course: Clinical Indication: Bed Name: 6. Comparison: None. FINDINGS: Supine sp4 radiograph of the abdomen, 1 view, was obtained. No gas dilated loops of bowel are noted. There is no pneumatosis or mass effect. There are no radiopaque densities noted. The bony structures are unremarkable. Moderate amount of gas is noted in the rectum and sigmoid colon. Large amount of stool is noted in the cecum and ascending colon. A left double-J ureteral stent is noted. A ventriculoperitoneal shunt is noted. IMPRESSION: 1. Large amount of stool in the cecum and ascending colon.. X ray today . 04:40 Differential diagnosis: Constipation and abdominal obstruction. Data reviewed: vital sp4 signs, nurses notes, lab test result(s), radiologic studies, plain films. 04:40 ED course: Patient is stable for discharge home with prescription for GoLytely for sp4 severe constipation.. 04/19 23:31 Order name: CBC with Diff; Complete Time: 23:53 sp4 04/19 23:31 Order name: CMP; Complete Time: 00:34 sp4 04/19 23:31 Order name: Lipase; Complete Time: 00:34 sp4 04/19 23:32 Order name: Abdomen 1 View XRAY sp4 04/19 23:31 Order name: IV Saline Lock; Complete Time: 23:43 sp4 04/19 23:31 Order name: Labs collected and sent; Complete Time: 23:39 sp4 Administered Medications: 04/19 23:41 Not Given (Physician Discretion): TORadol - [id number] mg IVP once sp4 23:55 Drug: Ondansetron IVP 4 mg IVP once; over 2 minutes Route: IVP; Site: left antecubital; ay 04/20 00:20 Follow up: Response: No adverse reaction ay 01:42 Follow up: Response: No adverse reaction ay 04/19 23:55 Drug: NS 0.9% IV 1000 ml IV at 1 bolus Per protocol; to be given as a bolus over 60 ay minutes Route: IV; Rate: 1 bolus; Site: right antecubital; 04/20 01:42 Follow up: Response: No adverse reaction; IV Status: Completed infusion; IV Intake: ay 1000ml 00:06 Drug: fentaNYL (PF) IVP 100 mcg IVP once Route: IVP; Site: right antecubital; ay 00:20 Follow up: Response: No adverse reaction ay 00:50 Drug: Magnesium Citrate PO Liquid 300 ml PO once Route: PO; ay :43 Follow up: Response: No adverse reaction ay 01:43 Follow up: Response: No adverse reaction ay 01:02 CANCELLED (Other Intervention Used): glycerin (adult)suppository 1 supp [place] once vc1 01:41 Drug: metoCLOPramide IVP 20 mg IVP once; over 15 mins Route: IVP; Site: right ay antecubital; 01:44 Follow up: Response: No adverse reaction ay 01:41 Drug: Dicyclomine PO 20 mg PO once Route: PO; ay 01:44 Follow up: Response: No adverse reaction ay 01:42 Drug: fentaNYL (PF) IVP 50 mcg IVP once Route: IVP; Site: right antecubital; ay :44 Follow up: Response: No adverse reaction ay 02:04 Drug: traMADol PO 100 mg PO once Route: PO; ay 02:04 Follow up: Response: Medication administered at discharge. ay 02:04 Drug: Ibuprofen PO 800 mg PO once Route: PO; ay 02:04 Follow up: Response: Medication administered at discharge. ay Disposition: 04:41 Chart complete. sp4 Disposition Summary: 04/20/24 01:16 Discharge Ordered Notes: Location: Home sp4 Problem: new sp4 Symptoms: have improved sp4 Condition: Stable sp4 Diagnosis - Slow transit constipation sp4 - Other abdominal pain sp4 Followup: sp4 - With: Private Physician - When: 7 - 10 days - Reason: Recheck today's complaints Discharge Instructions: - Discharge Summary Sheet sp4 - Constipation, Adult, [id number] sp4 Forms: - Patient Portal Instructions sp4 Prescriptions: - Golytely [id number] -5.86 gram Oral Recon Soln - administer 50 milliliter ORAL route every 15 minutes Dispense One Jug or 4000 sp4 ml total volume, Consume until effluent is clear; 4000 milliliter; Refills: 0, Product Selection Permitted - Reglan 10 mg Oral tablet - take 1 tablet ORAL route every 6 hours PRN nausea; 30 tablet; Refills: 0, sp4 Product Selection Permitted Signatures: Dispatcher [employer] Jae Juarez MD MD sp4 Stiven Pierson RN RN Shraddha Nguyen RN vc1 Corrections: (The following items were deleted from the chart) 04/19 23:32 23:32 COMPREHENSIVE METABOLIC PANEL+C.LAB.BRZ ordered. EDMS EDMS 23:32 23:32 LIPASE+C.LAB.BRZ ordered. EDMS EDMS 23:44 23:32 CBC+H.LAB.BRZ ordered. EDMS EDMS 04/20 01:02 04/19 23:40 Glycerin (Adult) VT Suppository 1 supp VT once ordered. sp4 vc1
--- NOTE | 2024-04-20 01:16 | ER ---
Nurse's Notes [facility] Name: Prisca Hernandez Age: 58 yrs Sex: Female : 1965 Arrival Date: 04/19/2024 Time: 23:10 Bed 6 Private MD: Diagnosis: Slow transit constipation;Other abdominal pain Presentation: 04/19 23:26 Chief complaint:. Chief complaint: Patient states: constipated times 5 days. Been vc1 taking Lactulose since Wednesday, have tried 4 enemas, and prune juice. Left lower back pain and bilateral abdomen pain that radiates to diaphragm. Coronavirus screen: Client denies travel out of the [place] in the last 14 days. Client presents with at least one sign or symptom that may indicate coronavirus-19. Ebola Screen: Patient negative for fever greater than or equal to 101.5 degrees Fahrenheit, and additional compatible Ebola Virus Disease symptoms Patient denies exposure to infectious person. Patient denies travel to an Ebola-affected area in the 21 days before illness onset. No symptoms or risks identified at this time. Initial Sepsis Screen: Does the patient meet any 2 criteria? No. Patient's initial sepsis screen is negative. Does the patient have a suspected source of infection? No. Patient's initial sepsis screen is negative. Risk Assessment: Do you want to hurt yourself or someone else? Patient reports no desire to harm self or others. Onset of symptoms was April 14, 2024. 23:26 Method Of Arrival: Ambulatory vc1 23:26 Acuity: ROGER 3 vc1 Triage Assessment: 23:39 General: Appears in no apparent distress. uncomfortable, ill, Behavior is calm, vc1 cooperative, appropriate for age. Pain: Complains of pain in left low back, right lower quadrant and left lower quadrant Pain radiates to epigastric area, right upper quadrant and left upper quadrant Pain currently is 10 out of 10 on a pain scale. EENT: No deficits noted. No signs and/or symptoms were reported regarding the EENT system. Neuro: Level of Consciousness is awake, alert, obeys commands, Oriented to person, place, time, situation, Appropriate for age. Cardiovascular: Capillary refill < 3 seconds Patient's skin is warm and dry. Respiratory: Airway is patent Respiratory effort is even, unlabored, Respiratory pattern is regular, symmetrical. GI: Abdomen is round non-distended, Abdomen is tender to palpation X 4 quads. Reports constipation. : No deficits noted. No signs and/or symptoms were reported regarding the genitourinary system. Derm: Skin is intact, is healthy with good turgor, Skin is dry, Skin is normal, Skin temperature is warm. Musculoskeletal: Circulation, motion, and sensation intact. Range of motion: intact in all extremities. Historical: - Allergies: 23:32 No NSAIDs; ay - PMHx: 23:32 Brain tumor Non-malignan; Depression; Fibromyalgia; High Cholesterol; Hypertension; ay Migraines; - PSHx: 23:32 gastric sleeve; Left ureter stent; ay - Immunization history:: Client reports receiving the 1st dose of the Covid vaccine. - Infectious Disease History:: Denies. - Family history:: not pertinent. - Social history:: Smoking status: Patient denies any tobacco usage or history of. Screenin:32 [facility] ED Fall Risk Assessment (Adult) History of falling in the last 3 months, ay including since admission No falls in past 3 months (0 pts) Confusion or Disorientation No (0 pts) Intoxicated or Sedated No (0 pts) Impaired Gait No (0 pts) Mobility Assist Device Used No (0 pt) Altered Elimination Yes (1 pt) Score/Fall Risk Level 0 - 2 = Low Risk Oriented to surroundings, Maintained a safe environment, Educated pt \T\ family on fall prevention, incl call for assistance when getting out of bed. Abuse screen: Denies threats or abuse. Nutritional screening: No deficits noted. Tuberculosis screening: No symptoms or risk factors identified. Assessment: 23:28 General: Appears distressed, uncomfortable, Behavior is cooperative, restless. Pain: ay Complains of pain in epigastric, abdomen Pain currently is 10 out of 10 on a pain scale. Pain began 2-3 days ago. Neuro: Level of Consciousness is awake, alert, obeys commands, Oriented to person, place, time, situation, Speech is normal. Cardiovascular: Reports nausea, vomiting, Denies chest pain, Capillary refill < 3 seconds. Respiratory: Airway is patent Respiratory effort is even, unlabored, Respiratory pattern is regular, symmetrical. GI: Bowel sounds present X 4 quads. Abdomen is tender to palpation X 4 quads. : No signs and/or symptoms were reported regarding the genitourinary system. EENT: No signs and/or symptoms were reported regarding the EENT system. Derm: No signs and/or symptoms reported regarding the dermatologic system. 23:32 GI: Reports constipation. ay Vital Signs: 23:26 BP 160 / 101; Pulse 104; Resp 20; Temp 98.3; Pulse Ox 96% ; vc1 04/20 00:00 BP 129 / 85; Pulse 77; Resp 20; Pulse Ox 96% on R/A; ay 01:54 BP 128 / 83; Pulse 90; Resp 19; Pulse Ox 99% ; ay [place] Coma Score: 04/19 23:32 Eye Response: spontaneous(4). Motor Response: obeys commands(6). Verbal Response: ay oriented(5). Total: 15. 04/20 04:38 Eye Response: spontaneous(4). Motor Response: obeys commands(6). Verbal Response: sp4 oriented(5). Total: 15. ED Course: 04/19 23:13 Patient arrived in ED. gm2 23:27 Stiven Pierson RN is Primary Nurse. ay 23:30 Jae Chou MD is Attending Physician. sp4 23:32 Triage completed. vc1 23:38 Arm band placed on right wrist. vc1 23:38 Patient has correct armband on for positive identification. Bed in low position. Call vc1 light in reach. Provided Education on: call light. Pulse ox on. NIBP on. 23:39 CMP Sent. ay 23:39 Lipase Sent. ay 23:43 Inserted saline lock: 20 gauge in left antecubital area, using aseptic technique. Blood vk collected. Flushed with 10 mL NS. 23:43 Initial lab(s) drawn, by me, sent to lab. vk 04/20 00:08 Abdomen 1 View XRAY In Process Unspecified. EDMS 01:49 IV discontinued, intact, bleeding controlled, No redness/swelling at site. Pressure ay dressing applied. Administered Medications: 04/19 23:41 Not Given (Physician Discretion): TORadol - [id number] mg IVP once sp4 23:55 Drug: Ondansetron IVP 4 mg IVP once; over 2 minutes Route: IVP; Site: left antecubital; ay 04/20 00:20 Follow up: Response: No adverse reaction ay 01:42 Follow up: Response: No adverse reaction ay 04/19 23:55 Drug: NS 0.9% IV 1000 ml IV at 1 bolus Per protocol; to be given as a bolus over 60 ay minutes Route: IV; Rate: 1 bolus; Site: right antecubital; 04/20 01:42 Follow up: Response: No adverse reaction; IV Status: Completed infusion; IV Intake: ay 1000ml 00:06 Drug: fentaNYL (PF) IVP 100 mcg IVP once Route: IVP; Site: right antecubital; ay 00:20 Follow up: Response: No adverse reaction ay 00:50 Drug: Magnesium Citrate PO Liquid 300 ml PO once Route: PO; ay :43 Follow up: Response: No adverse reaction ay :43 Follow up: Response: No adverse reaction ay 01:02 CANCELLED (Other Intervention Used): glycerin (adult)suppository 1 supp [place] once vc1 01:41 Drug: metoCLOPramide IVP 20 mg IVP once; over 15 mins Route: IVP; Site: right ay antecubital; 44 Follow up: Response: No adverse reaction ay 01:41 Drug: Dicyclomine PO 20 mg PO once Route: PO; ay :44 Follow up: Response: No adverse reaction ay :42 Drug: fentaNYL (PF) IVP 50 mcg IVP once Route: IVP; Site: right antecubital; ay :44 Follow up: Response: No adverse reaction ay 02:04 Drug: traMADol PO 100 mg PO once Route: PO; ay 02:04 Follow up: Response: Medication administered at discharge. ay 02:04 Drug: Ibuprofen PO 800 mg PO once Route: PO; ay 02:04 Follow up: Response: Medication administered at discharge. ay Medication: 04/19 23:32 VIS not applicable for this client. ay Intake: 04/20 01:42 IV: 1000ml; Total: 1000ml. ay Outcome: 01:16 Discharge ordered by MD. gamboa 01:49 Discharged to home ambulatory, ay 01:49 Condition: stable 01:49 Discharge instructions given to patient, Instructed on discharge instructions, follow up and referral plans. medication usage, Demonstrated understanding of instructions, follow-up care, medications, Prescriptions given X 2, 02:05 Patient left the ED. ay Signatures: Dispatcher [facility] Shraddha Casiano RN RN vc1 Jae Chou MD MD sp4 Maria L Romero gm2 Rizwana Munoz Awudu, RN RN ay Corrections: (The following items were deleted from the chart) 04/19 23:44 23:39 CBC+H.LAB.BRZ drawn and sent. antolin BOWLING
[2024-04-20] MEDS ORDERED: TRAMADOL HCL 50 MG TAB ONE (01:57)
[2024-04-20] MEDS ORDERED: IBUPROFEN 400 MG TAB ONE (01:57)
[2024-04-20 05:56] VITALS: TEMP 98.3
[2024-04-20 05:58] VITALS: BP 128/83; O2SAT 99
--- NOTE | 2024-04-20 05:58 | RAD REPORT ---
Clinical Indication: Bed Name: 6. Comparison: None. FINDINGS: Supine radiograph of the abdomen, 1 view, was obtained. No gas dilated loops of bowel are noted. Ther e is no pneumatosis or mass effect. There are no radiopaque densities noted. The bony structures are unremarkable. Moderate amount of gas is noted in the rectum and sigmoid colon. Large amount of stool is noted in th e cecum and ascending colon. A left double-J ureteral stent is noted. A ventriculoperitoneal shunt is noted. IMPRESSION: 1. Large amount of stool in the cecum and ascending colon.. Electronically signed by: Harsha Miles MD 04/20/2024 12:58 AM [employer]STANT [employer] O[employer] Due to temporary technical issues with the PACS/SIM Digital reporting system, reports are being natalia d by the in-house radiologist without review as a courtesy to ensure prompt reporting the interpreting radiologist is fully responsible for the content of the report. Transcribed Date/Time: 04/20/2024 5:58 AM
== END 2024-04-20 02:05 | disposition home or self-care (01) ==
LOC: ER 23:10
DX: K59.01 Slow transit constipation (principal); Z96.0 Presence of urogenital implants
CPT/HCPCS: 85025; 36415; 83690; 80053; 74018; 99284; J2765; J3010 ×2; J2405; J7030